=== PATIENT | male | born 1975 | race Caucasian/White ===

== ENCOUNTER 2024-03-23 11:41 | Emergency (ER) | payer OTHER, SELFPAY ==
[2024-03-23 11:56] VITALS: BP 124/77; PULSE 70; TEMP 36.6; O2SAT 96; BMI 27.1
--- NOTE | 2024-03-23 12:12 | XR_ITS ---
The [address] [address] Patient Name: KATELYNN VANEGAS MRN: [id number] date: 1975 Sex: M Assigned Patient Location: ER Current Patient Location: ER Accession/Order Number: [id number] Exam Date: 03/23/2024 12:29 Report Date: 03/23/2024 12:56 At the request of: EMELYN HOU Procedure: XR cervical spine 2-3V EXAMINATION: XR cervical spine 2-3V HISTORY: Atraumatic pain [; chronic right side neck and shoulder pain COMPARISON: No relevant comparison available. FINDINGS: BONES: Straightening of normal lordotic curvature. Minimal grade 1 anterior listhesis of C3 on 4. Mild degenerative facet arthropathy C5-6, C6-7. DISC SPACES: Slight narrowing C4-5, C5-6. PARASPINOUS: Negative. No paraspinous abnormality is seen. OTHER: Negative. XR/XR cervical spine 2-3V IMPRESSION: 1. Multilevel mild degenerative changes. 2. No appreciable acute abnormality. Electronically authenticated by: BRYCE GARCIA Date: 03/23/2024 12:56
--- NOTE | 2024-03-23 12:12 | XR_ITS ---
The [address] [address] Patient Name: KATELYNN VANEGAS MRN: [id number] date: 1975 Sex: M Assigned Patient Location: ER Current Patient Location: ER Accession/Order Number: [id number] Exam Date: 03/23/2024 12:29 Report Date: 03/23/2024 12:55 At the request of: EMELYN HOU Procedure: XR shoulder RT min 2V PROCEDURE: XR shoulder RT min 2V HISTORY: Atraumatic pain ; chronic right side neck and shoulder pain, right arm numbness COMPARISON: None. FINDINGS: BONES:No fracture, acute abnormality, or significant arthropathy. SOFT TISSUES:No visible soft tissue swelling. EFFUSION:None visible. OTHER: Negative. XR/XR shoulder RT min 2V IMPRESSION: 1. No acute abnormality or significant degenerative joint disease. Electronically authenticated by: BRYCE GARCIA Date: 03/23/2024 12:55
--- NOTE | 2024-03-23 12:12 | ED.GENADUL1 ---
HPI HPI - General Adult General Chief complaint: Neck Pain/Injury Stated complaint: NECK PAIN/SHOULDER PAIN Time Seen by Provider: 03/23/24 12:06 Source: patient Mode of arrival: walk-in Limitations: no limitations History of Present Illness HPI narrative: 48-year-old male presents for pain at his right shoulder and neck area. He gives no history of any injury. This time he has had it for the past day but this is a recurring issue for him. He has had it checked with x-rays but no specific cause was ever found. He has no weakness or numbness in his hand. He does not have a headache. Related Data Home Medications ?Medication ?Instructions ?Recorded ?Confirmed naproxen sodium 220 mg capsule 660 mg PO ONCE PRN pain 03/23/24 03/23/24 (Aleve) Previous Rx's ?Medication ?Instructions ?Recorded etodolac 400 mg tablet 400 mg PO Q8H PRN pain #20 tabs 03/23/24 methocarbamol 500 mg tablet 500 mg PO Q8H PRN pain #20 tabs 03/23/24 Allergies Allergy/AdvReac Type Severity Reaction Status Date / Time opiates AdvReac Unknown Uncoded 03/23/24 11:54 Opioid HPI Opioid Management Most Recent Opioid Data: Last OCT Pain Assessment 03/23/24 12:28 Review of Systems ROS Narrative A ten point review of systems is negative except as noted above. Exam Narrative Exam Narrative: Nurses note and vital signs reviewed and patient is not hypoxic. General: The patient appears in no apparent distress. He is reluctant to turn his head. He has an ice pack on his right shoulder and neck area. Skin: Warm, dry, no pallor noted. There is no rash noted including in the shoulder and neck region. Head: Normocephalic, atraumatic Eye: Normal conjunctiva, no drainage Ears, Nose, Mouth, and Throat: oral mucosa is moist. Nares patent. Cardiovascular: Regular Rate and Rhythm Respiratory: Patient is in no distress, no accessory muscle use, lungs are clear to auscultation, no wheezing, rales or rhonchi Back: non-tender GI: Soft and nontender Musculoskeletal: Radial pulse 2+ on the right side. Wrist elbow and shoulder have good range of motion. There is no mass or bruising or rash in the shoulder and neck region. No palpable tenderness on the C-spine. Neurological: Alert and oriented Psychiatric: Cooperative Constitutional Vital Signs, click to edit/add: Last Vital Signs Temp 98 F 03/23/24 11:56 Pulse 70 03/23/24 11:56 Resp 14 03/23/24 11:56 BP 124/77 03/23/24 11:56 Pulse Ox 96 03/23/24 11:56 O2 Del Method Room Air 03/23/24 11:56 Course Vital Signs Vital signs: Vital Signs Temperature 98 F 03/23/24 11:56 Pulse Rate 70 03/23/24 11:56 Respiratory Rate 14 03/23/24 11:56 Blood Pressure 124/77 03/23/24 11:56 Pulse Oximetry 96 03/23/24 11:56 Oxygen Delivery Method Room Air 03/23/24 11:56 Temperature 98 F 03/23/24 11:56 Pulse Rate 70 03/23/24 11:56 Respiratory Rate 14 03/23/24 11:56 Blood Pressure 124/77 03/23/24 11:56 Pulse Oximetry 96 03/23/24 11:56 Oxygen Delivery Method Room Air 03/23/24 11:56 Medical Decision Making MDM Narrative Medical decision making narrative: X-ray findings are discussed with the patient. He was given IM Toradol here and prescribed Lodine and Robaxin. He is referred to Dr. Martin for appropriate follow-up. Treatment diagnosis and follow-up were discussed with the patient. Differential Diagnosis Differential Diagnosis: Muscle strain, cervical radiculopathy, cervical arthritis Imaging Data C-spine, shoulder x-ray: Radiologist's impression: ITS Impressions Cervical Spine X-Ray 03/23/24 12:12 IMPRESSION: 1. Multilevel mild degenerative changes. 2. No appreciable acute abnormality. Electronically authenticated by: BRYCE GARCIA Date: 03/23/2024 12:56 Shoulder X-Ray 03/23/24 12:12 IMPRESSION: 1. No acute abnormality or significant degenerative joint disease. Electronically authenticated by: BRYCE GARCIA Date: 03/23/2024 12:55 Discharge Plan Discharge Stand Alone Forms: Portal Instructions Chief Complaint: Neck Pain/Injury Clinical Impression: Neck pain Patient Disposition: Home, Self-Care Time of Disposition Decision: 13:19 Condition: Good Mode of Transportation: Private Vehicle Prescriptions / Home Meds: New etodolac 400 mg tablet 400 mg PO Q8H PRN (Reason: pain) Qty: 20 0RF methocarbamol 500 mg tablet 500 mg PO Q8H PRN (Reason: pain) Qty: 20 0RF No Action naproxen sodium [Aleve] 220 mg capsule 660 mg PO ONCE PRN (Reason: pain) Print Language: Salvadorean Instructions: Chronic Neck Pain (DC) Referrals: DOMINICK PICKENS [Primary Care Provider] - 1 week Bryce Martin MD [Physician] - None
[2024-03-23] MEDS: KETOROLAC TROMETHAMINE 60 MG/2 ML VIAL IM (12:28)
[2024-03-23] MEDS: METHOCARBAMOL 500 MG TABLET 750 MG PO (12:28)
== END 2024-03-23 13:51 | disposition home or self-care (01) ==
PROVIDERS: Emergency Provider Emergency Medicine; PCP Family Medicine
DX: M54.2 Cervicalgia (principal)
CPT/HCPCS: 72040; 73030; 96372; 99284; J1885

== ENCOUNTER 2024-03-24 14:34 | Emergency (ER) | payer OTHER, SELFPAY ==
[2024-03-24 14:37] VITALS: BP 137/90; PULSE 74; TEMP 36.6; O2SAT 97; BMI 26.4
--- OUTSIDE RECORDS SUMMARY | 2024-03-24 14:39 | XMS_ITS | CCD ---
Author Organization [facility] Care Team Providers Care Public Health Administrator Name Role Phone Brady Rosas Unavailable [phone] Ladi Arcos Attending Unavailabl e Ralph, Dr. Brady Ryder Primary Care Un available Ralph, DO Abreu Primary Care Provider DO Brady Herbert Emergency Provider UnaDO Brady Elizabeth Attending Provider Ralph, DO Abreu Primary Care Provider [phone] MD Martin Jacobo Attending Provider [phone] Brady Rosas Primary Care Unavailable Brady Herbert Admitting Unavailable Brady Herbert Attending Unavailable Ralph, Brady Primary Care Unavailable Brady Rosas Attending Unavailable Brady Rosas Admitting Unavailable Brady Rosas Primary Care Unavailable Brady Rosas Attending Unavailable Brady Rosas Admitting Unavailable Brady Rosas Primary Care Unavailable Martin Jacobo Admitting Unavailable Martin Jacobo Attending Unavailable Medications Current Medications Medication Drug Class(es) Dates Sig (Normalized) Sig (Original) calcium ascorbate 500 mg oral tablet (1 source) Start: 12-08-2023 take 500 mg by mouth once daily Ascorbate Calcium (Vitamin C) Active 500 MG PO Daily December 08, 2023 12:00am cetirizine hydrochloride 10 mg oral tablet (4 sources) Histamine-1 Receptor Antagonist Start: 03-26-2023 take 1 tablet by mouth once daily Cetirizine (Zyrtec) 10 mg Tablet Active 10 MG PO Daily March 26, 2023 12:00am cholecalciferol 0.025 mg oral capsule (1 source) Vitamin D Start: 12-08-2023 take 25 ug by mouth once daily Cholecalciferol (Vitamin D3) Active 25 MCG PO Daily December 08, 2023 12:00am glucosamine sulfate 500 mg oral tablet (1 source) Start: 12-08-2023 take 1 tablet by mouth once daily Glucosamine Sulfate (Glucosamine) 500 mg tablet Active 500 MG PO Daily December 08, 2023 12:00am administer with a meal Multivitamin (Daily Multi-Vitamin) tablet (1 source) Start: 12-08-2023 take 1 tablet by mouth once daily Multivitamin (Daily Multi-Vitamin) tablet Active 1 TAB PO Daily December 08, 2023 12:00am naproxen sodium 220 mg oral capsule (1 source) Nonsteroidal Anti-inflammatory Drug Start: 12-08-2023 take 1 capsule by mouth once daily Naproxen Sodium (Aleve) 220 mg capsule Active 220 MG PO Daily December 08, 2023 12:00am vitamin b12 1 mg oral capsule (1 source) Vitamin B12 Start: 12-08-2023 take 1000 ug by mouth once daily Cyanocobalamin (Vitamin B-12) Active 1000 MCG PO Daily December 08, 2023 12:00am Completed/Discontinued Medications Medication Drug Class(es) Dates Sig (Normalized) Sig (Original) Sod Picosulf-Mag Ox-Citric Ac (1 source) Start: 10-19-2023 End: 12-08-2023 take 1 mL by mouth once Sod Picosulf-Mag Ox-Citric Ac (Clenpiq) 10 mg-3.5 gram- 12 gram/175 mL solution Discontinued 175 ML PO Once 175 1 October 19, 2023 1:00am December 08, 2023 7:50am please follow instructions proved by Dr. Jacobo's office Supplements (4 sources) Start: 03-26-2023 End: 12-08-2023 Supplements Discontinued March 26, 2023 12:00am December 08, 2023 7:50am Start: 03-26-2023 Supplements Ac tive March 26, 2023 12:00am Problems Active Problems Problem Classification Problem Date Documented Da te Episodic/Chronic Immunizations and screening for infectious disease (2 sources) Suspected disease caused by 2019-nCoV; Translations: [Contact with or exposure to other viral diseases] Episodic Other nutritional; endocrine; and metabolic disorders (4 sources) Hypophosphatemia; Translations: [Other disorders of phosphorus metabolism] 03-26-2023 Chronic Other screening for suspected conditions (not mental disorders or infectious disease) (1 source) Encounter for screening for malignant neoplasm of colon; Translations: [Encounter for screening for malignant neoplasm of colon] Onset: 12-08-2023 Episodic Unclassified (2 sources) Contact with and (suspected) exposure to COVID-19; Translations: [Contact with and (suspected) exposure to COVID-19] Onset: 03-18-2022 Unclassified (1 source) Encounter for general adult medical examination without abnormal findings; Translations: [Encounter for general adult medical examination without abnormal findings] Onset: 04-16-2023 Past or Other Problems Problem Classification Problem Date Documented Da te Episodic/Chronic Cardiac dysrhythmias (5 sources) Palpitations; Translations: [Palpitations] Onset: 03-26-2023 03-26-2023 Episodic Results Test Name Value Interpretation Reference Range Facility [facility] 12-08-2023 L Specimen: [id number] Received: 12/08/23 Status: KEAGAN Peoples Num: [id number] Spec Type: Surgical Subm Dr: Martin Jacobo MD Tissues: A Colon Biopsy (DESC POLYP) B Colon Biopsy (SIGMOID POLYP) Procedures: HE/4, Gross/Micro L4/2 Age/ Patient Sex Location Account Attending Physician Katelynn Burdick 48/M [id number] Martin Jacobo MD SPEC NUM: [id number] RECD: 12/08/23 STATUS: HALIMAAkin PEOPLES NUM: [id number] SRIRAM: 12/08/23- SUBM DR: Martin Jacobo MD ENTERED: 12/08/[address] [facility] DR: SPEC TYPE: Surgical DEPT: S ORDERED: HE/4, Gross/Micro L4/2 ORDERED: HE/4, Gross/Micro L4/2 Pathological Diagnosis A, descending colon polyp biopsy: -Tubular adenoma without high-grade dysplasia B, sigmoid polyp biopsy: -Tubular adenoma without high-grade dysplasia Gross Description A. Received in formalin, labeled with the patient's name and descending polyp is a 0.8 x 0.3 x 0.2 cm braun polypoid tissue fragment admixed with possible vegetable matter collectively measuring 1.1 x 0.8 x 0.1 cm, entirely submitted in A1. B. Received in formalin labeled with the patient's name and sigmoid polyp is a 0.7 x 0.7 x 0.2 cm polypoid tissue fragment, bisected and entirely submitted in B1. Clinical history screening TW Specimen: [id number] Received: 12/08/23 Status: KEAGAN Peoples Num: [id number] Spec Type: Surgical Subm Dr: Martin Jacobo MD Tissues: A Colon Biopsy (DESC POLYP) B Colon Biopsy (SIGMOID POLYP) Procedures: HE/Jadiel, Gross/Micro L4/2 Patient: Katelynn Burdick [id number] (Continued) Specimen: [id number] Received: 12/08/23 (Continued) Signed (signature on file) Theresa Oconnor MD 12/10/23 1313 Specimen: [id number] Received: 12/08/23 Status: KEAGAN Peoples Num: [id number] Spec Type: Surgical Subm Dr: Martin Jacobo MD Tissues: A Colon Biopsy (DESC POLYP) B Colon Biopsy (SIGMOID POLYP) Procedures: /, Gross/Micro L4/2 Patient: Katelynn Burdick [id number] (Continued) Specimen: Received: 12/08/23 (Continued) CPT Codes 20908F3 Specimen: [id number] Received: 12/08/23 Status: KEAGAN Peoples Num: [id number] Spec Type: Surgical Subm Dr: Martin Jacobo MD Tissues: A Colon Biopsy (DESC POLYP) B Colon Biopsy (SIGMOID POLYP) Procedures: HE/4, Gross/Micro L4/2 Patient: Katelynn Burdick [id number] (Continued) Signed (signature on file) Theresa Oconnor MD 12/10/23 1313 Normal [facility] Alanine aminotransferase [En zymatic activity/volume] in Serum or PlasmaOrdered By: Brady Rosas on 04-16-2023 ALT [Catalytic activity/Vol] 26 U/L 7-52 [facility] Albumin [Mass/volume] in Ser um or Plasma by Bromocresol green (BCG) dye binding methoOrdered By: Brady Rosas on 04-16-2023 Albumin BCG dye [Mass/Vol] 4.5 g/dL 3.5-5.7 [facility] Alkaline phosphatase [Enzyma tic activity/volume] in Serum or PlasmaOrdered By: Brady Rosas on 04-16-2023 ALP [Catalytic activity/Vol] 61 U/L 34-104 [facility] Aspartate aminotransferase [ Enzymatic activity/volume] in Serum or PlasmaOrdered By: Brady Rosas on 04-16-2023 AST [Catalytic activity/Vol] 18 U/L 13-39 [facility] Basophils Auto (Bld) [#/Vol] Ordered By: Brady Rosas on 04-16-2023 Basophils (Bld) [#/Vol] 0.1 10*3/uL 0.0-0.2 [facility] Basophils/100 WBC Auto (Bld) Ordered By: Brady Rosas on 04-16-2023 Basophils/100 WBC (Bld) 0.7 % . [facility] Bilirubin.total [Mass/volume ] in Serum or PlasmaOrdered By: Brady Rosas on 04-16-2023 Bilirubin [Mass/Vol] 0.9 mg/dL 0.3-1.0 [facility] Calcium [Mass/volume] in Ser um or PlasmaOrdered By: Brady Rosas on 04-16-2023 Calcium [Mass/Vol] 9.4 mg/dL 8.6-10.3 [facility] Carbon dioxide, total [Moles /volume] in Serum or PlasmaOrdered By: Brady Rosas on 04-16-2023 CO2 [Moles/Vol] 30.6 mmol/L 21.0-31.0 [facility] Chloride [Moles/volume] in S isiah or PlasmaOrdered By: Brady Rosas on 04-16-2023 Chloride [Moles/Vol] 107 mmol/L 98-107 [facility] Cholesterol [Mass/volume] in Serum or PlasmaOrdered By: Brady Rosas on 04-16-2023 Cholesterol [Mass/Vol] 187 mg/dL 140-200 [facility] Comment on above: Chol less than 200 m g/dl low riskChol 201-239 mg/dl borderline riskChol 240 mg/dl and greater high risk Cholesterol in LDL Calc [Mas s/Vol]Ordered By: Brady Rosas on 04-16-2023 Cholesterol in LDL [Mass/Vol] 127 mg/dL 0-100 [facility] Comment on above: LDL ATP III CLASSIFI CATIONLDL less than 100 mg/dL OptimalLDL 100-129 mg/dL Near or above optimalLDL 130-159 mg/dL Borderline highLDL 160-189 mg/dL HighLDL greater than 189 mg/dL Very high Cholesterol in VLDL Calc [Ma ss/Vol]Ordered By: Brady Mongechandler on 04-16-2023 Cholesterol in VLDL [Mass/Vol] 22 mg/dL [facility] Complete Blood Count Auto Di ffon 04-16-2023 Basophils (Bld) [#/Vol] 0.1 10*3/uL Normal 0.0-0.2 [facility] Comment on above: Result Comment: PERF ORMED BY: [place] [address] PATHOLOGIST [employer]EN [employer]OR STUART SIGALA M.D. Performed By: #### L IPID, PTH, CBC, CMP, PHOS, PSAS, TSH3, T4F, URMACRERAT, [id number], MG #### [facility] [address] [place] [address] [place] #### CAION #### [facility] , Basophils/100 WBC (Bld) 0.7 % Normal . [facility] Comment on above: Performed By: #### L IPID, PTH, CBC, CMP, PHOS, PSAS, TSH3, T4F, URMACRERAT, [id number], MG #### [facility] [address] [place] [address] [place] #### CAION #### [facility] , Eosinophils (Bld) [#/Vol] 0.1 10*3/uL Normal 0.0-0.45 [facility] Comment on above: Performed By: #### L IPID, PTH, CBC, CMP, PHOS, PSAS, TSH3, T4F, URMACRERAT, [id number], MG #### [place] [address] [place] #### CAION #### [facility] , Eosinophils/100 WBC (Bld) 1.4 % Normal . [facility] Comment on above: Performed By: #### L IPID, PTH, CBC, CMP, PHOS, PSAS, TSH3, T4F, URMACRERAT, [id number], MG #### [place] [address] [place] #### CAION #### [facility] , Erythrocyte distribution width (RBC) [Ratio] 13.6 % Normal 12.0-14.8 [facility] Comment on above: Performed By: #### L IPID, PTH, CBC, CMP, PHOS, PSAS, TSH3, T4F, URMACRERAT, [id number], MG #### [address] #### CAION #### [facility] , Hematocrit (Bld) [Volume fraction] 48.6 % Normal 38.8-50.0 [facility] Comment on above: Performed By: #### L IPID, PTH, CBC, CMP, PHOS, PSAS, TSH3, T4F, URMACRERAT, [id number], MG #### [address] #### CAION #### [facility] , Hemoglobin (Bld) [Mass/Vol] 16.7 g/dL Normal 13.0-17.0 [facility] Comment on above: Performed By: #### L IPID, PTH, CBC, CMP, PHOS, PSAS, TSH3, T4F, URMACRERAT, [id number], MG #### [place] [address] [place] #### CAION #### [facility] , Lymphocytes (Bld) [#/Vol] 2.2 10*3/uL Normal 1.00-4.8 [facility] Comment on above: Performed By: #### L IPID, PTH, CBC, CMP, PHOS, PSAS, TSH3, T4F, URMACRERAT, [id number], MG #### [place] [address] [place] #### CAION #### [facility] , Lymphocytes/100 WBC (Bld) 28.5 % Normal . [facility] Comment on above: Performed By: #### L IPID, PTH, CBC, CMP, PHOS, PSAS, TSH3, T4F, URMACRERAT, [id number], MG #### [place] [address] [place] #### CAION #### [facility] , MCH (RBC) [Entitic mass] 32.7 pg Normal 27.5-35.2 [facility] Comment on above: Performed By: #### L IPID, PTH, CBC, CMP, PHOS, PSAS, TSH3, T4F, URMACRERAT, [id number], MG #### [address] #### CAION #### [facility] , MCV (RBC) [Entitic vol] 95.1 fL Normal 83.5-101 [facility] Comment on above: Performed By: #### L IPID, PTH, CBC, CMP, PHOS, PSAS, TSH3, T4F, URMACRERAT, [id number], MG #### [place] [address] [place] #### CAION #### [facility] , Mean Corpuscular HGB Conc 34.4 g/dL Normal 32.5-35.6 [facility] Comment on above: Performed By: #### L IPID, PTH, CBC, CMP, PHOS, PSAS, TSH3, T4F, URMACRERAT, [id number], MG #### [place] [address] [place] #### CAION #### [facility] , Monocytes (Bld) [#/Vol] 0.4 10*3/uL Normal 0.0-0.8 [facility] Comment on above: Performed By: #### L IPID, PTH, CBC, CMP, PHOS, PSAS, TSH3, T4F, URMACRERAT, [id number], MG #### [address] #### CAION #### [facility] , Monocytes/100 WBC (Bld) 5.0 % Normal . [facility] Comment on above: Performed By: #### L IPID, PTH, CBC, CMP, PHOS, PSAS, TSH3, T4F, URMACRERAT, [id number], MG #### [address] #### CAION #### [facility] , Neutrophils (Bld) [#/Vol] 5.0 10*3/uL Normal 1.8-7.7 [facility] Comment on above: Performed By: #### L IPID, PTH, CBC, CMP, PHOS, PSAS, TSH3, T4F, URMACRERAT, [id number], MG #### [address] #### CAION #### [facility] , Neutrophils/100 WBC (Bld) 64.4 % Normal . [facility] Comment on above: Performed By: #### L IPID, PTH, CBC, CMP, PHOS, PSAS, TSH3, T4F, URMACRERAT, [id number], MG #### [place] [address] [place] #### CAION #### [facility] , NRBC% 0.1 /100{WBC} Normal 0-0.5 [facility] Comment on above: Performed By: #### L IPID, PTH, CBC, CMP, PHOS, PSAS, TSH3, T4F, URMACRERAT, [id number], MG #### [facility] [address] [place] [address] [place] #### CAION #### [facility] , Platelet mean volume (Bld) [Entitic vol] 9.7 fL Normal 6.6-10.1 [facility] Comment on above: Performed By: #### L IPID, PTH, CBC, CMP, PHOS, PSAS, TSH3, T4F, URMACRERAT, [id number], MG #### [facility] [address] [place] [address] #### CAION #### [facility] , Platelets (Bld) [#/Vol] 217 10*3/uL Normal 150-450 [facility] Comment on above: Performed By: #### L IPID, PTH, CBC, CMP, PHOS, PSAS, TSH3, T4F, URMACRERAT, [id number], MG #### [address] #### CAION #### [facility] , RBC (Bld) [#/Vol] 5.11 10*6/uL Normal 3.90-5.60 [facility] Comment on above: Performed By: #### L IPID, PTH, CBC, CMP, PHOS, PSAS, TSH3, T4F, URMACRERAT, [id number], MG #### [place] [address] [place] #### CAION #### [facility] , WBC (Bld) [#/Vol] 7.8 10*3/uL Normal 4.1-10.5 [facility] Comment on above: Performed By: #### L IPID, PTH, CBC, CMP, PHOS, PSAS, TSH3, T4F, URMACRERAT, [id number], MG #### [address] #### CAION #### [facility] , Comprehensive Metabolic Pane christine 04-16-2023 Albumin [Mass/Vol] 4.5 g/dL Normal 3.5-5.7 [facility] Comment on above: Performed By: #### B MP, CBC, PHOS, BNP, HS TROP, MG #### [address] Albumin/Globulin [Mass ratio] 1.9 {ratio} Normal [facility] Comment on above: Performed By: #### B MP, CBC, PHOS, BNP, HS TROP, MG #### [address] ALP [Catalytic activity/Vol] 61 U/L Normal 34-104 [facility] Comment on above: Performed By: #### B MP, CBC, PHOS, BNP, HS TROP, MG #### [address] ALT [Catalytic activity/Vol] 26 U/L Normal 7-52 [facility] Comment on above: Performed By: #### B MP, CBC, PHOS, BNP, HS TROP, MG #### [address] Anion gap [Moles/Vol] 7.9 mmol/L Normal 6.0-15.0 [facility] Comment on above: Performed By: #### B MP, CBC, PHOS, BNP, HS TROP, MG #### [address] AST [Catalytic activity/Vol] 18 U/L Normal 13-39 [facility] Comment on above: Performed By: #### B MP, CBC, PHOS, BNP, HS TROP, MG #### [address] Bilirubin [Mass/Vol] 0.9 mg/dL Normal 0.3-1.0 [facility] Comment on above: Performed By: #### B MP, CBC, PHOS, BNP, HS TROP, MG #### [address] Calcium [Mass/Vol] 9.4 mg/dL Normal 8.6-10.3 [facility] Comment on above: Performed By: #### B MP, CBC, PHOS, BNP, HS TROP, MG #### [address] Chloride [Moles/Vol] 107 mmol/L Normal 98-107 [facility] Comment on above: Performed By: #### B MP, CBC, PHOS, BNP, HS TROP, MG #### [address] CO2 [Moles/Vol] 30.6 mmol/L Normal 21.0-31.0 [facility] Comment on above: Performed By: #### B MP, CBC, PHOS, BNP, HS TROP, MG #### [address] Creatinine [Mass/Vol] 0.87 mg/dL Normal 0.70-1.30 [facility] Comment on above: Performed By: #### B MP, CBC, PHOS, BNP, HS TROP, MG #### [address] GFR/1.73 sq M.predicted MDRD (S/P/Bld) [Vol rate/Area] mL/min/{1.73_m2} Normal [facility] Comment on above: Performed By: #### B MP, CBC, PHOS, BNP, HS TROP, MG #### [address] Globulin (S) [Mass/Vol] 2.4 g/dL Normal [facility] Comment on above: Performed By: #### B MP, CBC, PHOS, BNP, HS TROP, MG #### [address] Glucose [Mass/Vol] 92 mg/dL Normal 70-100 [facility] Comment on above: Result Comment: [place] Glucose Reference Range is dependent on time and content of last meal. Glucose of more than 200 mg/dL in a nonstressed, ambulatory subject supports the diagnosis of Diabetes Mellitus. ADA recommended reference range Performed By: #### B MP, CBC, PHOS, BNP, HS TROP, MG #### [address] Potassium [Moles/Vol] 4.5 mmol/L Normal 3.5-5.1 [facility] Comment on above: Performed By: #### B MP, CBC, PHOS, BNP, HS TROP, MG #### [address] Protein [Mass/Vol] 6.9 g/dL Normal 6.4-8.9 [facility] Comment on above: Performed By: #### B MP, CBC, PHOS, BNP, HS TROP, MG #### [address] Sodium [Moles/Vol] 141 mmol/L Normal 136-145 [facility] Comment on above: Performed By: #### B MP, CBC, PHOS, BNP, HS TROP, MG #### [address] Urea nitrogen [Mass/Vol] 13 mg/dL Normal 7-25 [facility] Comment on above: Performed By: #### B MP, CBC, PHOS, BNP, HS TROP, MG #### [address] Creatinine [Mass/volume] in Serum or PlasmaOrdered By: Brady Rosas on 04-16-2023 Creatinine [Mass/Vol] 0.87 mg/dL 0.70-1.30 [facility] Creatinine [Mass/volume] in UrineOrdered By: Brady Rosas on 04-16-2023 Creatinine (U) [Mass/Vol] 135.0 mg/dL 14.0-26.0 [facility] Eosinophils Auto (Bld) [#/Vo l]Ordered By: Brady Rosas on 04-16-2023 Eosinophils (Bld) [#/Vol] 0.1 10*3/uL 0.0-0.45 [facility] Eosinophils/100 WBC Auto (Bl d)Ordered By: Brady Rosas on 04-16-2023 Eosinophils/100 WBC (Bld) 1.4 % . [facility] Erythrocyte distribution wid th Auto (RBC) [Ratio]Ordered By: Brady Rosas on 04-16-2023 Erythrocyte distribution width (RBC) [Ratio] 13.6 % 12.0-14.8 [facility] Free T4 (Free Thyroxine)on 0 04-16-2023 Free T4 [Mass/Vol] 0.68 ng/dL Normal 0.61-1.12 [facility] Comment on above: Performed By: #### B MP, CBC, PHOS, BNP, HS TROP, MG #### [place] [id number] [facility] Globulin Calc (S) [Mass/Vol] Ordered By: Brady Rosas on 04-16-2023 Globulin (S) [Mass/Vol] 2.4 g/dL [facility] Glucose [Mass/volume] in Ser um or PlasmaOrdered By: Brady Rosas on 04-16-2023 Glucose [Mass/Vol] 92 mg/dL 70-100 [facility] Comment on above: ADA recommended refe rence rangeRandom Glucose Reference Range is dependent on time and content of last meal. Glucose of more than 200 mg/dL in a nonstressed, ambulatory subject supports the diagnosis of Diabetes Mellitus. Hematocrit Auto (Bld) [Volum e fraction]Ordered By: Brady Rosas on 04-16-2023 Hematocrit (Bld) [Volume fraction] 48.6 % 38.8-50.0 [facility] Hemoglobin [Mass/volume] in BloodOrdered By: Brady Rosas on 04-16-2023 Hemoglobin (Bld) [Mass/Vol] 16.7 g/dL 13.0-17.0 [facility] Ionized Calciumon 04-16-2023 Ionized Calcium Normal . [facility] Comment on above: Result Comment: Test not performed. Deterioration occurred during specimen handling. contacted your facility on 04-20-2023 PERFORMED BY: [facility] [address] [place] [id number] PATHOLOGIST WO[employer]EN [employer]ENCE E[employer]OR STUART SIGALA M.D. Performed By: #### B MP, CBC, PHOS, BNP, HS TROP, MG #### [facility] [address] Leukocytes [#/volume] correc lolis for nucleated erythrocytes in Blood by Automated counOrdered By: Brady Rosas on 04-16-2023 WBC corrected for nucl RBC Auto (Bld) [#/Vol] 7.8 10*3/uL 4.1-10.5 [facility] Lipid Panelon 04-16-2023 Cholesterol [Mass/Vol] 187 mg/dL Normal 140-200 [facility] Comment on above: Result Comment: Chol less than 200 mg/dl low risk Chol 201-239 mg/dl borderline risk Chol 240 mg/dl and greater high risk Performed By: #### B MP, CBC, PHOS, BNP, HS TROP, MG #### [facility] [address] Cholesterol in HDL [Mass/Vol] 37 mg/dL Normal 23-92 [facility] Comment on above: Result Comment: HDL CHOL ATP-III CLASSIFICATION Cardiovascular Risk HDL > or equal to 60 mg/dL LOW HDL < 40 mg/dL HIGH Performed By: #### B MP, CBC, PHOS, BNP, HS TROP, MG #### [facility] [address] Cholesterol.total/Chol esterol in HDL [Mass ratio] 5.1 {ratio} Normal <5.0 [facility] Comment on above: Performed By: #### B MP, CBC, PHOS, BNP, HS TROP, MG #### [facility] [address] LDL Cholesterol,Calculated 127 mg/dL High 0-100 [facility] Comment on above: Result Comment: LDL ATP III CLASSIFICATION LDL less than 100 mg/dL Optimal LDL 100-129 mg/dL Near or above optimal LDL 130-159 mg/dL Borderline high LDL 160-189 mg/dL High LDL greater than 189 mg/dL Very high Performed By: #### B MP, CBC, PHOS, BNP, HS TROP, MG #### [facility] [address] Triglyceride w/Reflex 114 mg/dL Normal 0-149 [facility] Comment on above: Result Comment: TRIG ATP III CLASSIFICATION TRIG less than 150 mg/dL Normal TRIG 150-199 mg/dL Borderline high TRIG 200-500 mg/dL High TRIG greater than 500 mg/dL Very high Standard traceable to the Center for Disease Conrtrol and Prevention (CDC) test method. Performed By: #### B MP, CBC, PHOS, BNP, HS TROP, MG #### [facility] [address] VLDL CHOLESTEROL 22 mg/dL Normal [facility] Comment on above: Performed By: #### B MP, CBC, PHOS, BNP, HS TROP, MG #### [facility] [address] Lymphocytes Auto (Bld) [#/Vo l]Ordered By: Brady Rosas on 04-16-2023 Lymphocytes (Bld) [#/Vol] 2.2 10*3/uL 1.00-4.8 [facility] Lymphocytes/100 WBC Auto (Bl d)Ordered By: Brady Rosas on 04-16-2023 Lymphocytes/100 WBC (Bld) 28.5 % . [facility] MCH Auto (RBC) [Entitic mass ]Ordered By: Brady Rosas on 04-16-2023 MCH (RBC) [Entitic mass] 32.7 pg 27.5-35.2 [facility] Auto (RBC) [Mass/Vol]Or dered By: Brady Rosas on 04-16-2023 MCHC (RBC) [Mass/Vol] 34.4 g/dL 32.5-35.6 [facility] MCV Auto (RBC) [Entitic vol] Ordered By: Brady Rosas on 04-16-2023 MCV (RBC) [Entitic vol] 95.1 fL 83.5-101 [facility] Magnesiumon 04-16-2023 Magnesium [Mass/Vol] 2.1 mg/dL Normal 1.9-2.7 [facility] Comment on above: Performed By: #### B MP, CBC, PHOS, BNP, HS TROP, MG #### [address] Magnesium [Mass/volume] in S isiah or PlasmaOrdered By: Brady Rosas on 04-16-2023 Magnesium [Mass/Vol] 2.1 mg/dL 1.9-2.7 [facility] MicroAlb Creat Ratio,Uon Albumin DL <= 20 mg/L (U) [Mass/Vol] mg/dL Normal 0.0-1.8 [facility] Comment on above: Performed By: #### B MP, CBC, PHOS, BNP, HS TROP, MG #### [address] Creatinine, Urine (Random) 135.0 mg/dL High 14.0-26.0 [facility] Comment on above: Performed By: #### B MP, CBC, PHOS, BNP, HS TROP, MG #### [address] Microalbumin/Creatinin e Ratio Not performed Normal 0.0-30.0 [facility] Comment on above: Result Comment: PERF ORMED BY: [place] [address] PATHOLOGIST [employer] STUART SIGALA M.D. Performed By: #### B MP, CBC, PHOS, BNP, HS TROP, MG #### [address] Microalbumin [Mass/volume] i n UrineOrdered By: Brady Rosas on 04-16-2023 Albumin DL <= 20 mg/L (U) [Mass/Vol] mg/dL 0.0-1.8 [facility] Monocytes Auto (Bld) [#/Vol] Ordered By: Brady Rosas on 04-16-2023 Monocytes (Bld) [#/Vol] 0.4 10*3/uL 0.0-0.8 [facility] Monocytes/100 WBC Auto (Bld) Ordered By: Brady Rosas on 04-16-2023 Monocytes/100 WBC (Bld) 5.0 % . [facility] Neutrophils Auto (Bld) [#/Vo l]Ordered By: Brady Ralph on 04-16-2023 Neutrophils (Bld) [#/Vol] 5.0 10*3/uL 1.8-7.7 [facility] Neutrophils/100 WBC Auto (Bl d)Ordered By: Brady Rosas on 04-16-2023 Neutrophils/100 WBC (Bld) 64.4 % . [facility] No Panel InformationOrdered By: Brady Rosas on 04-16-2023 Estimated GFR (CKD-EPI) > 60.0 mL/Min [facility] Creatinine Clearance (Chem N/A [facility] Nucleated erythrocytes [Pres ence] in Blood by Automated countOrdered By: Brady Rosas on 04-16-2023 Nucleated RBC Auto Ql (Bld) 0.1 /100{WBC} 0-0.5 [facility] PSA Screen (Yearly Only)on 0 04-16-2023 PSA Screen (Yearly Only) 0.390 ng/mL Normal 0.000-4.000 [facility] Comment on above: Result Comment: PERF ORMED BY: [place] [address] PATHOLOGIST [employer] STUART SIGALA M.D. Performed By: #### B MP, CBC, PHOS, BNP, HS TROP, MG #### [facility] [address] [place] [address] Parathyrin.intact [Mass/volu me] in Serum or PlasmaOrdered By: Brady Rosas on 04-16-2023 Parathyrin.intact [Mass/Vol] 32.5 pg/mL [facility] Parathyroid Hormone Intacton 04-16-2023 Parathyroid Hormone Intact 32.5 pg/mL Normal [facility] Comment on above: Result Comment: PERF ORMED BY: [place] [address] PATHOLOGIST [employer] STUART SIGALA M.D. Performed By: #### B MP, CBC, PHOS, BNP, HS TROP, MG #### [facility] [address] [id number] [facility] Phosphate [Mass/volume] in S isiah or PlasmaOrdered By: Brady Rosas on 04-16-2023 Phosphate [Mass/Vol] 3.2 mg/dL 3.7-7.2 [facility] Phosphoruson 04-16-2023 Phosphate [Mass/Vol] 3.2 mg/dL Low 3.7-7.2 [facility] Comment on above: Performed By: #### B MP, CBC, PHOS, BNP, HS TROP, MG #### [facility] [address] [id number] [facility] Platelet mean volume Auto (B ld) [Entitic vol]Ordered By: Brady Rosas on 04-16-2023 Platelet mean volume (Bld) [Entitic vol] 9.7 fL 6.6-10.1 [facility] Platelets Auto (Bld) [#/Vol] Ordered By: Brady Rosas on 04-16-2023 Platelets (Bld) [#/Vol] 217 10*3/uL 150-450 [facility] Potassium [Moles/volume] in Serum or PlasmaOrdered By: Brady Rosas on 04-16-2023 Potassium [Moles/Vol] 4.5 mmol/L 3.5-5.1 [facility] Prostate specific Ag [Mass/v olume] in Serum or PlasmaOrdered By: Brady Rosas on 04-16-2023 Prostate specific Ag [Mass/Vol] 0.390 ng/mL 0.000-4.000 [facility] Protein [Mass/volume] in Ser um or PlasmaOrdered By: Brady Rosas on 04-16-2023 Protein [Mass/Vol] 6.9 g/dL 6.4-8.9 [facility] RBC Auto (Bld) [#/Vol]Ordere d By: Brady Rosas on 04-16-2023 RBC (Bld) [#/Vol] 5.11 10*6/uL 3.90-5.60 [facility] Serum ionized calcium measur ement using ion specific electrode (mass/volume)Ordered By: Brady Rosas on 04-16-2023 Calcium.ionized ISE [Mass/Vol] See comment . [facility] Comment on above: Test not performed. Deterioration occurred during specimenhandling.contacted your facility on 04-20-2023 Serum or plasma albumin/glob ulin mass ratioOrdered By: Brady Rosas on 04-16-2023 Albumin/Globulin [Mass ratio] 1.9 {ratio} [facility] Serum or plasma anion gap de terminationOrdered By: Brady Rosas on 04-16-2023 Anion gap [Moles/Vol] 7.9 mmol/L 6.0-15.0 [facility] Serum or plasma high density lipoprotein (HDL) cholesterol measurementOrdered By: Brady Rosas on 04-16-2023 Cholesterol in HDL [Mass/Vol] 37 mg/dL 23-92 [facility] Comment on above: HDL CHOL ATP-III CLA SSIFICATION Cardiovascular RiskHDL > or equal to 60 mg/dL LOWHDL < 40 mg/dL HIGH Serum or plasma total choles terol/high density lipoprotein (HDL) cholesterol mass ratOrdered By: Brady Rosas on 04-16-2023 Cholesterol.total/Chol esterol in HDL [Mass ratio] 5.1 {ratio} <5.0 [facility] Sodium [Moles/volume] in Ser um or PlasmaOrdered By: Brady Roass on 04-16-2023 Sodium [Moles/Vol] 141 mmol/L 136-145 [facility] Thyroid Stimulating Hormoneo n 04-16-2023 TSH Qn 0.84 m[IU]/L Normal 0.45-5.33 [facility] Comment on above: Performed By: #### B MP, CBC, PHOS, BNP, HS TROP, MG #### [facility] [address] [place] [address] Thyrotropin [Units/volume] i n Serum or PlasmaOrdered By: Brady Rosas on 04-16-2023 TSH Qn 0.84 m[IU]/L 0.45-5.33 [facility] Thyroxine (T4) free [Mass/vo lume] in Serum or PlasmaOrdered By: Brady Rosas on 04-16-2023 Free T4 [Mass/Vol] 0.68 ng/dL 0.61-1.12 [facility] Triglyceride [Mass/volume] i n Serum or PlasmaOrdered By: Brady Rosas on 04-16-2023 Triglyceride [Mass/Vol] 114 mg/dL 0-149 [facility] Comment on above: TRIG ATP III CLASSIF ICATIONTRIG less than 150 mg/dL NormalTRIG 150-199 mg/dL Borderline highTRIG 200-500 mg/dL High TRIG greater than 500 mg/dL Very highStandard traceable to the Center for Disease Conrtrol and Prevention (CDC) test method. Urea nitrogen [Mass/volume] in Serum or PlasmaOrdered By: Brady Rosas on 04-16-2023 Urea nitrogen [Mass/Vol] 13 mg/dL 7-25 [facility] Urine microalbumin/creatinin e mass ratioOrdered By: Brady Rosas on 04-16-2023 Albumin/Creatinine DL <= 20 mg/L (U) [Mass ratio] TNP [facility] Comment on above: Test not performed Vitamin D 25 Hydroxy Totalon 04-16-2023 Vitamin D 25 Hydroxy Total 34.7 ng/mL Normal 30-100 [facility] Comment on above: Result Comment: ARTUR MIN D STATUS 25(OH)VITAMIN D RANGE (ng/mL) Deficient <20 Insufficient 20 to <30 Sufficient 30 to 100 Reference: Sherrill MF,Cyndi NC, Elvia LOPEZ, et al. Evaluation,treatment, and prevention of vitamin D deficiency; an Endocrine Society clinical practice guideline. JCEM. 2010; 96(7):1911-30. PERFORMED BY: [place] [address] PATHOLOGIST [employer] STUART SIGALA M.D. Performed By: #### B MP, CBC, PHOS, BNP, HS TROP, MG #### [address] Vitamin D+Metabolites [Mass/ volume] in Serum or PlasmaOrdered By: Brady Rosas on 04-16-2023 Vitamin D+Metabolites [Mass/Vol] 34.7 ng/mL 30-100 [facility] Comment on above: VITAMIN D STATUS 25( OH)VITAMIN D RANGE (ng/mL) Deficient <20 Insufficient 20 to <30Sufficient 30 to 100Reference: Sherrill MF,Cyndi WALLACE, Elvia LOPEZ, et al. Evaluation,treatment, and prevention of vitamin D deficiency; an Endocrine Society clinical practice guideline. JCEM. 2010; 96(7):1911-30. WBC Auto (Bld) [#/Vol]Ordere d By: Brady Rosas on 04-16-2023 WBC (Bld) [#/Vol] 7.8 10*3/uL 4.1-10.5 [facility] B-Type Natriuretic Peptideon 03-26-2023 Natriuretic peptide B (Bld) [Mass/Vol] 9.0 pg/mL Normal 5-100 [facility] Comment on above: Result Comment: PERF ORMED BY: [place] [address] PATHOLOGIST [employer] STUART SIGALA M.D. Performed By: #### B MP, CBC, PHOS, BNP, HS TROP, MG #### [address] Basic Metabolic Panelon 03-15 Anion gap [Moles/Vol] 8.6 mmol/L Normal 6.0-15.0 [facility] Comment on above: Performed By: #### B MP, CBC, PHOS, BNP, HS TROP, MG #### [facility] [address] [place] [address] [place] Calcium [Mass/Vol] 9.2 mg/dL Normal 8.6-10.3 [facility] Comment on above: Performed By: #### B MP, CBC, PHOS, BNP, HS TROP, MG #### [place] [address] [place] Chloride [Moles/Vol] 106 mmol/L Normal 98-107 [facility] Comment on above: Performed By: #### B MP, CBC, PHOS, BNP, HS TROP, MG #### [place] [address] [place] CO2 [Moles/Vol] 28.4 mmol/L Normal 21.0-31.0 [facility] Comment on above: Performed By: #### B MP, CBC, PHOS, BNP, HS TROP, MG #### [address] Creatinine [Mass/Vol] 0.98 mg/dL Normal 0.70-1.30 [facility] Comment on above: Performed By: #### B MP, CBC, PHOS, BNP, HS TROP, MG #### [place] [address] [place] Creatinine Clr Calc Pharmacy 107.58 Normal [facility] Comment on above: Performed By: #### B MP, CBC, PHOS, BNP, HS TROP, MG #### [place] [address] [place] GFR/1.73 sq M.predicted MDRD (S/P/Bld) [Vol rate/Area] mL/min/{1.73_m2} Normal [facility] Comment on above: Performed By: #### B MP, CBC, PHOS, BNP, HS TROP, MG #### [address] Glucose [Mass/Vol] 100 mg/dL Normal 70-100 [facility] Comment on above: Result Comment: [place] Glucose Reference Range is dependent on time and content of last meal. Glucose of more than 200 mg/dL in a nonstressed, ambulatory subject supports the diagnosis of Diabetes Mellitus. ADA recommended reference range Performed By: #### B MP, CBC, PHOS, BNP, HS TROP, MG #### [address] Potassium [Moles/Vol] 4.0 mmol/L Normal 3.5-5.1 [facility] Comment on above: Performed By: #### B MP, CBC, PHOS, BNP, HS TROP, MG #### [address] Sodium [Moles/Vol] 139 mmol/L Normal 136-145 [facility] Comment on above: Performed By: #### B MP, CBC, PHOS, BNP, HS TROP, MG #### [facility] [address] Urea nitrogen [Mass/Vol] 17 mg/dL Normal 7-25 [facility] Comment on above: Performed By: #### B MP, CBC, PHOS, BNP, HS TROP, MG #### [facility] [address] Basophils Auto (Bld) [#/Vol] Ordered By: Brady Herbert on 03-26-2023 Basophils (Bld) [#/Vol] 0.1 10*3/uL 0.0-0.2 [facility] Basophils/100 WBC Auto (Bld) Ordered By: Brady Herbert on 03-26-2023 Basophils/100 WBC (Bld) 0.9 % . [facility] Calcium [Mass/volume] in Ser um or PlasmaOrdered By: Brady Herbert on 03-26-2023 Calcium [Mass/Vol] 9.2 mg/dL 8.6-10.3 [facility] Carbon dioxide, total [Moles /volume] in Serum or PlasmaOrdered By: Brady Herbert on 03-26-2023 CO2 [Moles/Vol] 28.4 mmol/L 21.0-31.0 [facility] Chloride [Moles/volume] in S isiah or PlasmaOrdered By: Brady Herbert on 03-26-2023 Chloride [Moles/Vol] 106 mmol/L 98-107 [facility] Complete Blood Count Auto Di ffon 03-26-2023 Basophils (Bld) [#/Vol] 0.1 10*3/uL Normal 0.0-0.2 [facility] Comment on above: Result Comment: PERF ORMED BY: [facility] [address] [place] [address] PATHOLOGIST [employer] E[employer] STUART SIGALA M.D. Performed By: #### B MP, CBC, PHOS, BNP, HS TROP, MG #### [facility] [address] Basophils/100 WBC (Bld) 0.9 % Normal . [facility] Comment on above: Performed By: #### B MP, CBC, PHOS, BNP, HS TROP, MG #### [address] Eosinophils (Bld) [#/Vol] 0.1 10*3/uL Normal 0.0-0.45 [facility] Comment on above: Performed By: #### B MP, CBC, PHOS, BNP, HS TROP, MG #### [address] Eosinophils/100 WBC (Bld) 1.2 % Normal . [facility] Comment on above: Performed By: #### B MP, CBC, PHOS, BNP, HS TROP, MG #### [address] Erythrocyte distribution width (RBC) [Ratio] 13.3 % Normal 12.0-14.8 [facility] Comment on above: Performed By: #### B MP, CBC, PHOS, BNP, HS TROP, MG #### [address] Hematocrit (Bld) [Volume fraction] 46.3 % Normal 38.8-50.0 [facility] Comment on above: Performed By: #### B MP, CBC, PHOS, BNP, HS TROP, MG #### [address] Hemoglobin (Bld) [Mass/Vol] 16.0 g/dL Normal 13.0-17.0 [facility] Comment on above: Performed By: #### B MP, CBC, PHOS, BNP, HS TROP, MG #### [place] [address] [place] Lymphocytes (Bld) [#/Vol] 2.6 10*3/uL Normal 1.00-4.8 [facility] Comment on above: Performed By: #### B MP, CBC, PHOS, BNP, HS TROP, MG #### [place] [address] [place] Lymphocytes/100 WBC (Bld) 26.4 % Normal . [facility] Comment on above: Performed By: #### B MP, CBC, PHOS, BNP, HS TROP, MG #### [address] MCH (RBC) [Entitic mass] 32.4 pg Normal 27.5-35.2 [facility] Comment on above: Performed By: #### B MP, CBC, PHOS, BNP, HS TROP, MG #### [address] MCV (RBC) [Entitic vol] 93.8 fL Normal 83.5-101 [facility] Comment on above: Performed By: #### B MP, CBC, PHOS, BNP, HS TROP, MG #### [address] Mean Corpuscular HGB Conc 34.5 g/dL Normal 32.5-35.6 [facility] Comment on above: Performed By: #### B MP, CBC, PHOS, BNP, HS TROP, MG #### [address] Monocytes (Bld) [#/Vol] 0.6 10*3/uL Normal 0.0-0.8 [facility] Comment on above: Performed By: #### B MP, CBC, PHOS, BNP, HS TROP, MG #### [address] Monocytes/100 WBC (Bld) 17.41 % Normal 0.00-20.00 [facility] Comment on above: Performed By: #### B MP, CBC, PHOS, BNP, HS TROP, MG #### [address] Monocytes/100 WBC (Bld) 6.1 % Normal . [facility] Comment on above: Performed By: #### B MP, CBC, PHOS, BNP, HS TROP, MG #### [address] Neutrophils (Bld) [#/Vol] 6.5 10*3/uL Normal 1.8-7.7 [facility] Comment on above: Performed By: #### B MP, CBC, PHOS, BNP, HS TROP, MG #### [address] Neutrophils/100 WBC (Bld) 65.4 % Normal . [facility] Comment on above: Performed By: #### B MP, CBC, PHOS, BNP, HS TROP, MG #### [address] NRBC% 0.0 /100{WBC} Normal 0-0.5 [facility] Comment on above: Performed By: #### B MP, CBC, PHOS, BNP, HS TROP, MG #### [address] Platelet mean volume (Bld) [Entitic vol] 9.0 fL Normal 6.6-10.1 [facility] Comment on above: Performed By: #### B MP, CBC, PHOS, BNP, HS TROP, MG #### [address] Platelets (Bld) [#/Vol] 220 10*3/uL Normal 150-450 [facility] Comment on above: Performed By: #### B MP, CBC, PHOS, BNP, HS TROP, MG #### [address] RBC (Bld) [#/Vol] 4.94 10*6/uL Normal 3.90-5.60 [facility] Comment on above: Performed By: #### B MP, CBC, PHOS, BNP, HS TROP, MG #### [address] WBC (Bld) [#/Vol] 9.9 10*3/uL Normal 4.1-10.5 [facility] Comment on above: Performed By: #### B MP, CBC, PHOS, BNP, HS TROP, MG #### [address] Creatinine [Mass/volume] in Serum or PlasmaOrdered By: Bardy Herbert on 03-26-2023 Creatinine [Mass/Vol] 0.98 mg/dL 0.70-1.30 [facility] ECG 12 lead ECGon 03-26-2023 ECG 12 lead ECG [facility] Main [address] [address] Electrocardiograph Report Signed Patient: Katelynn Burdick MR#: [id number] 1 : 1975 Acct:[id number] Age/Sex: 47 / M ADM Date: 03/26/23 Loc: ER Room: Type: PRE ER Attending Dr: Ordering Provider: Brady Herbert DO Date of Service: 03/26/2308/06/1728 ECG/ECG 12 lead ECG: chest pain Copies to: Test Reason : Blood Pressure : 126/081 mmHG Vent. Rate : 094 BPM Atrial Rate : 094 BPM P-R Int : 134 ms QRS Dur : 086 ms QT Int : 352 ms P-R-T Axes : 055 027 072 degrees QTc Int : 440 ms Normal sinus rhythm Confirmed by Brady Herbert DO ([id number]) on 03/26/2023 6:27:27 PM Referred By: Electronically Signed By:Brady Herbert DO Transcribed By: MUS Signed By Brady Herbert DO 182 Normal [facility] Eosinophils Auto (Bld) [#/Vo l]Ordered By: Brady Herbert on 03-26-2023 Eosinophils (Bld) [#/Vol] 0.1 10*3/uL 0.0-0.45 [facility] Eosinophils/100 WBC Auto (Bl d)Ordered By: Brady Herbert on 03-26-2023 Eosinophils/100 WBC (Bld) 1.2 % . [facility] Erythrocyte distribution wid th Auto (RBC) [Ratio]Ordered By: Brady Herbert on 03-26-2023 Erythrocyte distribution width (RBC) [Ratio] 13.3 % 12.0-14.8 [facility] Glucose [Mass/volume] in Ser um or PlasmaOrdered By: Brady Herbert on 03-26-2023 Glucose [Mass/Vol] 100 mg/dL 70-100 [facility] Comment on above: ADA recommended refe rence rangeRandom Glucose Reference Range is dependent on time and content of last meal. Glucose of more than 200 mg/dL in a nonstressed, ambulatory subject supports the diagnosis of Diabetes Mellitus. Hematocrit Auto (Bld) [Volum e fraction]Ordered By: Brady Herbert on 03-26-2023 Hematocrit (Bld) [Volume fraction] 46.3 % 38.8-50.0 [facility] Hemoglobin [Mass/volume] in BloodOrdered By: Brady Herbert on 03-26-2023 Hemoglobin (Bld) [Mass/Vol] 16.0 g/dL 13.0-17.0 [facility] Leukocytes [#/volume] correc lolis for nucleated erythrocytes in Blood by Automated counOrdered By: Brady Herbert on 03-26-2023 WBC corrected for nucl RBC Auto (Bld) [#/Vol] 9.9 10*3/uL 4.1-10.5 [facility] Lymphocytes Auto (Bld) [#/Vo l]Ordered By: Brady Herbert on 03-26-2023 Lymphocytes (Bld) [#/Vol] 2.6 10*3/uL 1.00-4.8 [facility] Lymphocytes/100 WBC Auto (Bl d)Ordered By: Brady Herbert on 03-26-2023 Lymphocytes/100 WBC (Bld) 26.4 % . [facility] MCH Auto (RBC) [Entitic mass ]Ordered By: Brady Herbert on 03-26-2023 MCH (RBC) [Entitic mass] 32.4 pg 27.5-35.2 [facility] MCHC Auto (RBC) [Mass/Vol]Or dered By: Brady Herbert on 03-26-2023 MCHC (RBC) [Mass/Vol] 34.5 g/dL 32.5-35.6 [facility] MCV Auto (RBC) [Entitic vol] Ordered By: Brady Herbert on 03-26-2023 MCV (RBC) [Entitic vol] 93.8 fL 83.5-101 [facility] Magnesiumon 03-26-2023 Magnesium [Mass/Vol] 2.1 mg/dL Normal 1.9-2.7 [facility] Comment on above: Result Comment: PERF ORMED BY: [facility] [address] [place] [address] PATHOLOGIST [employer] STUART SIGALA M.D. Performed By: #### B MP, CBC, PHOS, BNP, HS TROP, MG #### [facility] [address] Magnesium [Mass/volume] in S isiah or PlasmaOrdered By: Brady Herbert on 03-26-2023 Magnesium [Mass/Vol] 2.1 mg/dL 1.9-2.7 [facility] Monocyte distribution width [Entitic volume] in Blood by AutomatedOrdered By: Brady Herbert on 03-26-2023 Monocyte distribution width Auto (Bld) [Entitic vol] 17.41 % 0.00-20.00 [facility] Monocytes Auto (Bld) [#/Vol] Ordered By: Brady Herbert on 03-26-2023 Monocytes (Bld) [#/Vol] 0.6 10*3/uL 0.0-0.8 [facility] Monocytes/100 WBC Auto (Bld) Ordered By: Brady Herbert on 03-26-2023 Monocytes/100 WBC (Bld) 6.1 % . [facility] Natriuretic peptide B [Mass/ Vol]Ordered By: Brady Herbert on 03-26-2023 Natriuretic peptide B (Bld) [Mass/Vol] 9.0 pg/mL 5-100 [facility] Neutrophils Auto (Bld) [#/Vo l]Ordered By: Brady Herbert on 03-26-2023 Neutrophils (Bld) [#/Vol] 6.5 10*3/uL 1.8-7.7 [facility] Neutrophils/100 WBC Auto (Bl d)Ordered By: Brady Herbert on 03-26-2023 Neutrophils/100 WBC (Bld) 65.4 % . [facility] No Panel InformationOrdered By: Brady Herbert on 03-26-2023 Estimated GFR (CKD-EPI) > 60.0 mL/Min [facility] Creatinine Clearance (Chem 107.58 [facility] Nucleated erythrocytes [Pres ence] in Blood by Automated countOrdered By: Brady Herbert on 03-26-2023 Nucleated RBC Auto Ql (Bld) 0.0 /100{WBC} 0-0.5 [facility] Phosphate [Mass/volume] in S isiah or PlasmaOrdered By: Brady Herbert on 03-26-2023 Phosphate [Mass/Vol] 3.3 mg/dL 3.7-7.2 [facility] Phosphoruson 03-26-2023 Phosphate [Mass/Vol] 3.3 mg/dL Low 3.7-7.2 [facility] Comment on above: Performed By: #### B MP, CBC, PHOS, BNP, HS TROP, MG #### [address] Platelet mean volume Auto (B ld) [Entitic vol]Ordered By: Brady Herbert on 03-26-2023 Platelet mean volume (Bld) [Entitic vol] 9.0 fL 6.6-10.1 [facility] Platelets Auto (Bld) [#/Vol] Ordered By: Brady Herbert on 03-26-2023 Platelets (Bld) [#/Vol] 220 10*3/uL 150-450 [facility] Potassium [Moles/volume] in Serum or PlasmaOrdered By: Brady Herbert on 03-26-2023 Potassium [Moles/Vol] 4.0 mmol/L 3.5-5.1 [facility] RBC Auto (Bld) [#/Vol]Ordere d By: Brady Herbert on 03-26-2023 RBC (Bld) [#/Vol] 4.94 10*6/uL 3.90-5.60 [facility] Serum or plasma anion gap de terminationOrdered By: Brady Herbert on 03-26-2023 Anion gap [Moles/Vol] 8.6 mmol/L 6.0-15.0 [facility] Sodium [Moles/volume] in Ser um or PlasmaOrdered By: Brady Herbert on 03-26-2023 Sodium [Moles/Vol] 139 mmol/L 136-145 [facility] Troponin I High Sensitivityo n 03-26-2023 Troponin I High Sensitivity 7.6 pg/mL Normal 0.0-20.0 [facility] Comment on above: Result Comment: PERF ORMED BY: [place] [address] PATHOLOGIST [employer] STUART SIGALA M.D. Performed By: #### B MP, CBC, PHOS, BNP, HS TROP, MG #### [facility] [address] Troponin I.cardiac [Mass/vol ume] in Serum or Plasma by Detection limit <= 0.01 ng/Ordered By: Brady Herbert on 03-26-2023 Troponin I.cardiac DL <= 0.01 ng/mL [Mass/Vol] 7.6 pg/mL 0.0-20.0 [facility] Urea nitrogen [Mass/volume] in Serum or PlasmaOrdered By: Brady Herbert on 03-26-2023 Urea nitrogen [Mass/Vol] 17 mg/dL 7-25 [facility] WBC Auto (Bld) [#/Vol]Ordere d By: Brady Herbert on 03-26-2023 WBC (Bld) [#/Vol] 9.9 10*3/uL 4.1-10.5 [facility] XR chest 1V portableon 03-26 XR chest 1V portable [facility] Main [place] [address] [id number] XRay Report Signed Patient: Katelynn Burdick MR#: [id number] 1 : 1975 Acct:[id number] Age/Sex: 47 / M ADM Date: 03/26/23 Loc: ER Room: Type: PRE ER Attending Dr: Copies to: Brady Herbert DO Ordering Provider: Brady Herbert DO Date of Service: 03/26/23 XR/XR chest 1V portable: Chest Pain PORTABLE AP ERECT CHEST 1813 hours CLINICAL HISTORY: Left upper chest pain. COMPARISON: 11/05/2011 The heart is within normal limits. There is no vascular congestion. The lungs, as visualized, are clear. There is no effusion or pneumothorax. The osseous structures are intact. XR/XR chest 1V portable IMPRESSION: NO ACUTE FINDINGS Impression dictated by: Alejandra Ivory M.D.03/26/2023 6:27 PM Dictation Location: [place] [address] Transcribed By: [facility] 03/26/231826 Dictated By: Alejandra Ivory MD 03/26/231825 Signed By: 03/26/231826 Normal [facility] CORONAVIRUS 2019 BY PCRon SARS-CoV-2 (COVID-19) RNA ROBBIE+probe Ql (Unsp spec) Detected Abnormal Not Detected [facility] Comment on above: Result Comment: . This assay is designed to detect SARS-CoV-2 based on replication of specific regions of the RNA from the SARS-CoV-2 virus. A Not Detected result does not preclude 2019-nCoV infection since the adequacy of sample collection and/or low viral burden may result in presence of viral nucleic acids below the clinical sensitivity of this test method. Fact sheet for providers: https://www.fda.gov/media/011656/download Fact sheet for patients: https://www.fda.gov/media/375438/download This test has received FDA Emergency Use Authorization [EUA] and has been verified by [facility] ([facility]). This test is only authorized for the duration of time that circumstances exist to justify the authorization of the emergency use of in vitro diagnostic tests for the detection of SARS-CoV-2 virus and/or diagnosis of COVID-19 infection under section 564(b)(1) of the Act, 21 U.S.C. 360bbb-3(b)(1), unless the authorization is terminated or revoked sooner. [facility] is certified under CLIA-88 as qualified to perform high complexity testing. Testing is performed in the [facility] laboratories located at [address] [place] [address]. Performed By: #### C OV19 #### [place] [address] Covid 19 Resultson 2 SARS-CoV-2 (COVID-19) RNA ROBBIE+probe Ql (Unsp spec) POSITIVE COVID-19 Test Coronaviruses are common world-wide and are the cause of many common colds. SARS-COV2 is a new coronavirus that began circulating worldwide in 2019 so we are calling it COVID-19. It has been estimated that four out of five patients with COVID-19 will recover at home without the need for medical attention. Symptoms of COVID-19 may include cough, fever, shortness of breath, loss of taste or smell and other flu-like symptoms including chills, sore muscles, sore throat, and headache. Severe illness is more common in older people and people with other health problems such as high blood pressure, obesity, and immune system problems. If the test is positive, you have COVID-19. You will be contacted by the ordering physicians office and instructed to remain on home isolation, in accordance with CDC guidelines. You may also be contacted by the [facility] to see if any of your close contacts may have been exposed to the virus and need to quarantine. If the test is negative, you likely do not have COVID-19 at this time, but you still may have a different illness that can spread to other people (like Influenza, or the Flu) and could still be at risk for getting COVID-19. We recommend that you stay away from other people to limit the spread of illness until your symptoms are improving and you are fever-free for 24 hours without the use of fever lowering medications such as acetaminophen or ibuprofen. No test is 100% accurate so if you are still concerned you may have COVID-19, talk to your doctor about the need to continue to stay away from others. Medicines Unless your provider told you not to use the following: Acetaminophen (Tylenol and others) is generally safe. Anti-inflammatory medications, such as Ibuprofen (Advil or Motrin) or Naproxen (Aleve) can also be used. Hsiu-hun-miacaem cough and cold medicines can be used according to the instructions on the package. Some pemr-euf-mdwiwwb medicines also contain acetaminophen. Make sure you are not taking more than your recommended dose. For those not hospitalized, there is no specific treatment available for this illness. Antibiotics do not treat Coronaviruses. Follow-Up Follow up with your doctor by scheduling a virtual visit or consider follow-up at one of our urgent care fever clinics. If you are having difficulty breathing, or are very weak and having difficulty standing, this is a medical emergency. Call 911 or have someone take you to the nearest emergency room immediately. If possible, wear a facemask. Additional guidance from the CDC for patients who tested POSITIVE for COVID-19 How to isolate: Isolate yourself in a specific room at home and limit your contact with others. Use a separate bathroom from other members of the household, when possible. Leave home only to get essential medical care. Do not go to work, school or public areas. Avoid using public transportation, ride-sharing, or taxis. Restrict contact with pets and other animals. If you must care for your pet or be around animals while you are sick, wash your hands before and after your interaction and wear a facemask. Make sure that shared spaces in the home have good airflow, such as by an air conditioner or an opened window, weather permitting. Personal Hygiene Procedures: Wear a face mask when in the same room as other people or pets. If a face mask interferes with your breathing, others should wear a mask when sharing space with you. Frequent hand-washing: wash your hands with soap and water for at least 20 seconds. If soap and water are not available, use alcohol-based hand induction coordination power engineer. Avoid touching your eyes, nose, and mouth with unwashed hands. Household Hygiene Procedures: Avoid sharing personal household items such as dishes, glassware, cups, eating utensils, towels or bedding with other people or pets in your home. After use, these items should be washed with soap and hot water. Disinfect all high-touch surfaces every day with antibacterial cleaning solutions such as Lysol wipes, bleach, cleansers, etc. High-touch surfaces include tabletops, doorknobs, bathroom fixtures, toilets, phones, keyboards, tablets and bedside tables. Immediately clean any surfaces that may have blood, poop or body fluids on them, using antibacterial cleaning solutions such as Lysol wipes, bleach, cleansers, etc. If clothing or bedding come into contact with blood, poop or body fluids, they should be washed immediately. Follow the directions on the laundry detergent and clothing labels but hot water is recommended when possible. Stopping home isolation precautions: If possible, consult your doctor before stopping home isolation precautions. According to the CDC, you can discontinue home isolation precautions when you have met both of these criteria: Your fever and respiratory symptoms have been gone for 24 anum (more content not included)... Normal [facility] CORONAVIRUS 2019 BY PCRon Lab Specimen Source Nasal, Nasopharyngeal Normal [facility] Comment on above: Performed By: #### C OV19 #### [facility] [address] [place] [id number] Coronavirus 2019 RNA by PCR, Symptomaticon 03-18-2022 Coronavirus 2019 RNA by PCR, Symptomatic Detected Abnormal See Below [facility] Work Phone: Comment on above: SOURCE: Nasal, Nasop haryngealReference Range: Not Detected.This assay is designed to detect SARS-CoV-2 based on replication of specific regions of the RNA from the SARS-CoV-2 virus. A Not Detected result does not preclude 2019-nCoV infection since the adequacy of sample collection and/or low viral burden may result in presence of viral nucleic acids below the clinical sensitivity of this test method. Fact sheet for providers: https://www.fda.gov/media/045797/downloadFact sheet for patients: https://www.fda.gov/media/256212/downloadThis test has received FDA Emergency Use Authorization [EUA] and has been verified by [facility] ([facility]). This test is only authorized for the duration of time that circumstances exist to justify the authorization of the emergency use of in vitro diagnostic tests for the detection of SARS-CoV-2 virus and/or diagnosis of COVID-19 infection under section 564(b)(1) of the Act, 21 U.S.C. 360bbb-3(b)(1), unless the authorization is terminated or revoked sooner. [facility] is certified under CLIA-88 as qualified to perform high complexity testing. Testing is performed in the [facility] laboratories located at [address] [place] [id number]. Office Visit (Urgent Care)on 03-18-2022 Follow-up visit Diagnoses/Problems Assessed Suspected COVID-19 virus infection (V01.79) (Z20.822) Orders Suspected COVID-19 virus infection Coronavirus 2019 RNA by PCR, Symptomatic; Status:In Progress - Specimen/Data Collected; Done: 18Mar2022 Perform:Lab Services - Lab To Draw (Non-Blood Test); Due:16Jun2022;Ordered; For:Suspected COVID-19 virus infection; Ordered By:Ladi Arcos; Patient Discussion/Summary COVID testing in progress. Expected results in 24-72 hours; practice social distancing, self quarantine and wear a mask. We will contact you with any positive results. Chief Complaint Duran/COVID Adult Risk Screening There are no spiritual/cultural practices/values/needs that are important to know Initial Fall Risk Screening: KATELYNN has not fallen in the last 6 months. Advanced Care Planning discussed and documented advance care plan or surrogate decision maker documented in the medical record. Tobacco Screening: KATELYNN does not use tobacco. History of Present Illness Patient is a 46-year-old male who presents for COVID-19 testing. He works for [employer]. He resents with a 1 day history of headaches, sore throat and nausea. His daughter was recently diagnosed with COVID-19. He denies cough and shortness of breath. No fevers or chills are noted. Constitutional: No fevers or chills. Eyes: no purulent discharge from the eyes and no eye pain. ENT: no nasal congestion, + sore throat and no earache. Neck: no mass(es) and no swelling. Cardiovascular: no chest pain and no palpitations. Respiratory: no cough, no shortness of breath, no orthopnea and no wheezing. Gastrointestinal: no abdominal pain, no vomiting, no diarrhea, no decrease in appetite and + nausea. Musculoskeletal: no arthralgias and myalgias. Neurological: + headache. Review of Systems Constitutional: as noted in HPI. Allergies NoKnown No Known Allergies Recorded By: Shae Brown; 03/18/2022 11:33:51 AM Vitals Vital Signs Recorded: 18Mar2022 11:31AM Ohulkdwnssz46.1 F, Temporal Heart Rate89 Jjkgokwtwuu92 Respiration QualityNormal Xfdfvlzh169, Sitting Qudlmxsox36, Sitting Blood Pressure Cuff SizeAdult Height6 ft 1 in Snzkui282 lb BMI Clpllvbusq04.78 kg/m2 BSA Calculated2.17 Tobacco Useb) No Falls Screening (Age 18+)a) No falls within the last year O2 Vqnitlcgcc06, RA Pain Scale0 PHQ-9 #1. Little interest or pleasure in doing things0-Not at all PHQ-9 #2. Feeling down, depressed, or hopelesS0-Not at all Physical Exam Constitutional: Well developed, well nourished. vital signs reviewed. patient alert patient without distress Head and Face: Head and face: Normal. Palpation of the face and sinuses: Normal. Eyes: Normal external exam - pupils were equal in size, round, reactive to light (PERRL) with normal accommodation and extraocular movements intact (EOMI). Pupils and irises: Normal. Ophthalmoscopic examination: Normal. Ears, Nose, Mouth, and Throat: External inspection of ears: Normal. Hearing: Normal. External inspection of nose: Normal. Nasal mucosa, septum, and turbinates: Normal. Lips, teeth, and gums: Normal. Oropharynx: Normal. Otoscopic examination: Normal. Neck: No neck mass was observed. Supple. normal range of motion. normal muscle tone. Cardiovascular: Heart rate normal, normal S1 and S2, no gallops, no murmurs and no pericardial rub. Rhythm: Normal. Pulmonary: No respiratory distress. Clear bilateral breath sounds. Abdomen: Soft nontender; no abdominal mass palpated. No organomegaly. Normal bowel sounds. Lymphatic: No cervical lymphadenopathy. Signatures Electronically signed by : Ladi Arcos MD; Mar 18 2022 12:23PM EST (Author) Normal [employer] Respirationon 03-18-2022 Fall risk assessment a) No falls within the last year [facility] Work Phone: Tobacco use status [facility] b) No [facility] Work Phone: Respiration Normal [facility] Work Phone: Respiration Adult [facility] Work Phone: Respiration 0-Not at all [facility] Work Phone: Vital Signs Date Time Vital Sign Value Performing Clinician Facility 12-08-2023 09:35-0400 Diastolic blood pressure 75 mm[Hg] DO Brady Petznick Work Phone: [facility] 12-08-2023 09:35-0400 Heart rate 63 /min DO Brady Petznick Work Phone: 7(219)265-950899 [place] [address] 12-08-2023 09:35-0400 Respiratory rate 16 /min DO Brady Petznick Work Phone: 2(143)323-798099 [place] [address] 12-08-2023 09:35-0400 SaO2% (BldA) [Mass fraction] 97 % DO Brady Petznick Work Phone: 8(180)737-289299 [place] [address] 12-08-2023 09:35-0400 Systolic blood pressure 110 mm[Hg] DO Brady Petznick Work Phone: 9(508)886-820034 [address] 12-08-2023 07:55-0400 Body height 185.42 cm DO Brady Petznick Work Phone: 3(226)344-153434 [address] 12-08-2023 07:55-0400 Body weight 83.91 kg DO Brady Petznick Work Phone: 8(372)783-328199 [place] [address] 03-26-2023 19:00-0400 Diastolic blood pressure 87 mm[Hg] DO Brady Petznick Work Phone: [facility] 03-26-2023 19:00-0400 Heart rate 72 /min DO Brady Petznick Work Phone: 3(157)703-394299 [place] [address] 03-26-2023 19:00-0400 Respiratory rate 18 /min DO Brady Petznick Work Phone: 7(778)700-504299 [place] [address] 03-26-2023 19:00-0400 SaO2% (BldA) [Mass fraction] 94 % DO Brady Petznick Work Phone: 3([phone])684-690999 [place] [address] 03-26-2023 19:00-0400 Systolic blood pressure 121 mm[Hg] DO Brady Petznick Work Phone: [facility] 03-26-2023 17:35-0400 Body height 185.42 cm DO Brady Petznick Work Phone: [facility] 03-26-2023 17:35-0400 Body temperature 98.2 [degF] DO Brady Rosas Work Phone: [facility] 03-26-2023 17:35-0400 Body weight 92.15 kg DO Brady Mongeznick Work Phone: [facility] 03-18-2022 11:31-0400 Body height 185.42 cm Brady Mongeznick Work Phone: [facility] Work Phone: 03-18-2022 11:31-0400 Body mass index (BMI) [Ratio] 26.78 kg/m2 rBady Mongeznick Work Phone: [facility] Work Phone: 03-18-2022 11:31-0400 Body surface area Derived from formula 2.17 m2 Brady Mongeznick Work Phone: [facility] Work Phone: 03-18-2022 11:31-0400 Body temperature 98.1 [degF] Brady Grahamick Work Phone: [facility] Work Phone: 03-18-2022 11:31-0400 Body weight 92.08 kg Brady Mongeznick Work Phone: [facility] Work Phone: 03-18-2022 11:31-0400 Diastolic blood pressure 69 mm[Hg] Brady Mongeznick Work Phone: [facility] Work Phone: 03-18-2022 11:31-0400 Heart rate 89 /min Brady Mongeznick Work Phone: [facility] Work Phone: 03-18-2022 11:31-0400 Respiratory rate 20 /min Brady C Petznick Work Phone: [facility] Work Phone: 03-18-2022 11:31-0400 SaO2% (BldA) [Mass fraction] 98 % Brady Mongeznick Work Phone: [facility] Work Phone: 03-18-2022 11:31-0400 Systolic blood pressure 126 mm[Hg] Brady Grahamick Work Phone: [facility] Work Phone: 03-18-2022 11:31-0400 0 1 Brady Grahamick Work Phone: [facility] Work Phone: Comment on above: PainScale Encounters Encounter Date Encounter Type Care Provider Facility Start: 12-08-2023 End: 12-08-2023 ambulatory Rbady Petkieranick Facility:[facility] Start: 12-08-2023 Non-patient / Non-visit DO Brady Petznick Work Phone: [facility] Work Phone: Start: 12-08-2023 End: 12-08-2023 Admission to same day surgery center DO Brady Petznick Work Phone: [facility] Work Phone: Start: 12-08-2023 End: 12-08-2023 ambulatory DO Brady Petznick Work Phone: [facility] Work Phone: Start: 04-30-2023 End: 04-30-2023 ambulatory Brady Petznick Facility:[facility] Start: 04-30-2023 End: 04-30-2023 ambulatory DO Brady Petznick Work Phone: [facility] Work Phone: Start: 04-30-2023 End: 04-30-2023 Patient encounter procedure DO Brady Petznick Work Phone: [facility] [place] Work Phone: Start: 04-23-2023 End: 04-23-2023 ambulatory DO Brady Rosas Work Phone: [facility] Work Phone: Start: 04-23-2023 End: 04-23-2023 Patient encounter procedure DO Brady Rosas Work Phone: [facility] [place] Work Phone: Start: 04-16-2023 End: 04-16-2023 ambulatory Brady Rosas Facility:[facility] Start: 04-16-2023 End: 04-16-2023 Patient encounter procedure DO Brady Rosas Work Phone: [facility] [place] Work Phone: Start: 03-26-2023 End: 03-26-2023 Emergency department patient visit Brady Rosas Facility:[facility] Start: 03-26-2023 End: 03-26-2023 Emergency department patient visit DO Brady Rosas Work Phone: [facility] Work Phone: Start: 03-19-2022 Chart Update Brady Jacob katya Work Phone: [facility] Work Phone: Start: 03-18-2022 Adv care pln tlkd & alt dcsn maker docd Brady Rosas Work Phone: [facility] Work Phone: Start: 03-18-[address] Ladi Arcos Facility:[id number] Procedures Date Procedure Procedure Detail Performing Clinician Start: 12-08-2023 Screening colonoscopy D O Brady Rosas Work Phone: Start: 03-26-2023 Plain chest X-ray DO Ma tthew Petznick Work Phone: Plan of Treatment Date Care Activity Detail Author Start: 12-08-2023 [facility] Patient Education [facility] Work Phone: Patient referral [facility] Work Phone: Payers Date Payer Category Payer Unknown [id number] 2023 Self-pay 2023 Unknown [id number] 1975 Unknown [id number] Unknown [employer] Unknown [id number] Unknown [id number] Unknown [id number] Unknown [id number] Social History Date Type Detail Facility Start: 03-26-2023 End: 12-08-2023 Tobacco smoking status PAIS Smoker (finding) [facility] Start: 1975 Sex Assigned At Male F [facility] Goals Date Patient Goal Desired Activity /State Procedure note 12-08-2023 Note Date & Type Note Facility 12-08-2023 Procedure note [facility] Evaluation note Note Date & Type Note Facility Evaluation note No assessment information availa ble [facility] Work Phone: History and physical note Note Date & Type Note Facility History and physical note Note Date/Time December 08, 2023 8:4 6am [facility] [address] [place] [address] Gastroenterology H&P Signed Patient: Katelynn Burdick MR#: [id number] : 1975 Acct:[id number] Age/Sex: 48 / M Adm Date: 04/25/2 4 Loc: Room: Type: [facility] Attending Dr: Martin Jacobo MD Copies to: Martin Jacobo MD Brady Damon Ralph, DO~ Date of Service: 12/08/2023 HISTORY & PHYSICAL: Patient's history with special attention to the cardiovascular, pulmonary systems and the current problem was reviewed with the patient immediately prior to the procedure. Present medications and doses reviewed in the EMR. Allergies and pertinent laboratory tests were also reviewedat this time in the EMR. The physical examination, as below, was then performed. Indication, assessment and HPI: 48-year-old male presents for average risk screening colonoscopy Family history of GI malignancy? No PHYSICAL EXAMINATION Mouth and Pharynx : Moist mucus membranes, normal dentition Cardiac: Regular rate, regular rhythm Pulmonary: Clear to auscultation bilaterally, no wheezing Neurological: Alert and oriented x3, no focal deficits noted Abdomen: Abdomen soft, non-tender REVIEW OF SYSTEMS Constitutional: Denies malaise, fevers Cardiovascular: Denies chest pain, palpitations Respiratory: Denies shortness of breath, wheezing Gastrointestinal: Per HPI Genitourinary: Denies dysuria, polyuria Musculoskeletal: Denies joint swelling, joint stiffness Neurological: Denies numbness, tingling Integumentary: Denies rashes, skin lesions Endocrine: Denies fatigue, weight loss Written informed consent obtained from the patient. Risks (including but not limited to perforation, infection, bloating, bleeding, need for emergent surgeryand loss of life), benefits and alternatives explained and questions answered. The patient verbalized understanding. Based on history patient is an appropriate candidate for the procedure. Martin Jacobo MD Documented By: Martin Jacobo MD 12/08/23 0845 Signed By: <Electronically signed by Martin Jacobo MD> 12/08/2346 [facility] Work Phone: History of Present illness Narrative Note Date & Type Note Facility History of Present illness Narrative Patient is a 46-year-old male who presents for COVID-19 testing. He works for [employer]. He resents with a 1 day history of headaches, sore throat and nausea. His daughter was recently diagnosed with COVID-19. He denies cough and shortness of breath. No fevers or chills are noted.Constitutional: No fevers or chills.Eyes: no purulent discharge from the eyes and no eye pain.ENT: no nasal congestion, + sore throat and no earache.Neck: no mass(es) and no swelling.Cardiovascular: no chest pain and no palpitations.Respiratory: no cough, no shortness of breath, no orthopnea and no wheezing.Gastrointestinal: no abdominal pain, no vomiting, no diarrhea, no decrease in appetite and + nausea.Musculoskeletal: no arthralgias and myalgias.Neurological: + headache. [facility] Work Phone: Chief Complaint Duran/COVID Summary Purpose Family History No Family History Records Found Relationship Condition Age at Onset Recorded Date/T nydia father Diabetes mellitus Unknown Heart disease Unknown grandparent Malignant neoplasm of pancreas Unknown Advance Directives No Advanced Directives Records Found Advance Directive Response Recorded Date/ Time Advance Directives No March 26, 2023 7:09pm Chief Complaint and Reason for Visit Chief Complaint chest pain Chief Complaint chest pain e83.39 z00.00 e83.39 Chief Complaint chest pain e83.39 z00.00 e83.39 E83.39 Chief Complaint Screening Screening Additional Source Comments (unrecognized sect ion and content) No Status Records FoundNo Status Records FoundNo Status Records FoundNo Status Records Found INFORMATION SOURCE (unrecogn ized section and content) DATE CREATED AUTHOR 03/19/2022 [employer] DATE CREATED AUTHOR AUTHOR'S ORGANIZ ATION 03/20/2022 [facility] DATE CREATED AUTHOR AUTHOR'S ORGANIZ ATION [facility] DATE CREATED AUTHOR AUTHOR'S ORGANIZ ATION 12/16/2023 [facility] Care Teams (unrecognized sec tion and content) Team Status: Active Member Role Status Dates Brady Rosas DO Primary Care Provider Active Team Status: Inactive Member Role Status Dates Brady Rosas DO Primary Care Provider Active Brady Herbert DO Emergency Provider Active Team Status: Inactive Member Role Status Dates Brady Rosas DO Primary Care Provider, Attending Provider Active Team Status: Inactive Member Role Status Dates Brady Rosas DO Primary Care Provider Active Start: December 08, 2023 End: December 08, 2023 Martin Jacobo MD Attending Provider Active S tart: December 08, 2023 End: December 08, 2023 Team Status: Active Member Role Status Dates Brady Rosas DO Primary Care Provider Active Start: December 08, 2023 Martin Jacobo MD Attending Provider, Other Provider Active Start: December 08, 2023 Goals (unrecognized section and content) Goals may be documented in a n alternate sectionGoals may be documented in an alternate sectionGoals may be documented in an alternate section FOR RECORDS PERTAINING TO PATIENTS WHO ARE OR HAVE BEEN ENROLLED IN A CHEMICAL DEPENDENCY/SUBSTANCEABUSE PROGRAM, SOME INFORMATION MAY BE OMITTED. This clinical summary was aggregated from multiple sources. Caution should be exercised in using it in the provision of clinical care. This summary normalizes information from multiple sources, and as a consequence, information in this document may materially change the coding, format and clinical context of patient data. In addition, data may be omitted in some cases. CLINICAL DECISIONS SHOULD BE BASED ON THE PRIMARY CLINICAL RECORDS. [facility] [employer] [facility]. provides no warranty or guarantee of the accuracy or completeness of information in this document.
--- NOTE | 2024-03-24 15:09 | ED_ITS ---
HPI HPI - Neck Pain/Injury General Chief Complaint: Neck Pain/Injury Stated Complaint: neck pain Time Seen by Provider: 03/24/24 14:48 History of Present Illness HPI Narrative: The patient is coming to the ER to be evaluated with neck pain for the second day after he was just evaluated yesterday, he mentioned that he took 2 doses of the muscle relaxant is not helping and he also took 2 doses of the etodolac Patient denies any weakness in his right hand he denies any nausea vomiting or any other complaint Related Data Previous Rx's ?Medication ?Instructions ?Recorded etodolac 400 mg tablet 400 mg PO Q8H PRN pain #20 tabs 03/23/24 cyclobenzaprine 10 mg tablet 10 mg PO BID PRN muscle spasm #14 03/24/24 tabs prednisone 20 mg tablet 40 mg (2 x 20 mg) PO DAILY 5 days 03/24/24 #10 tabs Allergies Allergy/AdvReac Type Severity Reaction Status Date / Time opiates AdvReac Unknown Uncoded 03/23/24 11:54 Opioid HPI Opioid Management Most Recent Opioid Data: Last OCT Pain Assessment 03/23/24 12:28 Review of Systems ROS Status of ROS 10 or more systems reviewed and unremark able except as noted in history and below Exam Narrative Exam Narrative: Nurses notes and vital signs reviewed and patient is not hypoxic. General: Well-appearing and in no apparent distress. Skin: Warm, dry, no pallor noted. No rash. Head: Normocephalic, atraumatic. Neck: Supple, non-tender. The patient have mild right paraspinal muscle tenderness mostly toward the shoulder joint on the right side he also have some right anterior shoulder tenderness but there is full range of movement preserved Eye: Pupils are equal, round and EOMI. No scleral icterus. Ears, Nose, Mouth, and Throat: TM are clear, no nasal mucosal hypertrophy. Oral mucosa is moist, no posterior oropharynx erythema, uvula is mid-line Cardiovascular: Regular Rate and Rhythm without murmur, gallop or rub. Respiratory: No accessory muscle use or respiratory distress. Lungs are clear to auscultation, no wheezing, rales or rhonchi Chest Wall: no tenderness Back: No midline thoracic or lumbar vertebral tenderness. No CVA tenderness Musculoskeletal: normal ROM, no calf or popliteal tenderness, no lower extremity edema/swelling GI: Abdomen is soft, non-distended. Normal bowel sounds. No masses appreciated. No tenderness to palpation. No rebound, guarding, or rigidity noted. Neurological: A&O x4. No cranial nerve dysfunction observed. No truncal ataxia. Moves all extremities. Sensation intact. Psychiatric: Cooperative and interactive. Normal mood and affect. Constitutional Vital Signs, click to edit/add: Last Vital Signs Temp 97.8 F 03/24/24 14:37 Pulse 74 03/24/24 14:37 Resp 20 03/24/24 14:37 BP 137/90 03/24/24 14:37 Pulse Ox 97 03/24/24 14:37 O2 Del Method Room Air 03/24/24 14:37 Course Vital Signs Vital signs: Vital Signs Temperature 97.8 F 03/24/24 14:37 Pulse Rate 74 03/24/24 14:37 Respiratory Rate 20 03/24/24 14:37 Blood Pressure 137/90 03/24/24 14:37 Pulse Oximetry 97 03/24/24 14:37 Oxygen Delivery Method Room Air 03/24/24 14:37 Temperature 97.8 F 03/24/24 14:37 Pulse Rate 74 03/24/24 14:37 Respiratory Rate 20 03/24/24 14:37 Blood Pressure 137/90 03/24/24 14:37 Pulse Oximetry 97 03/24/24 14:37 Oxygen Delivery Method Room Air 03/24/24 14:37 MDM - Neck Pain/Injury MDM Narrative Medical decision making narrative: The patient presented to us with a neck pain mostly secondary to torticollis Patient seemed anxious as he is asking for pain medication shot that would resolve the pain I did explain to him the right now given Toradol as well as steroid in the ER and he will be discharged with Flexeril instead of the Robaxin The patient is to follow up with primary care physician in next 2-3 days or to return to the emergency department should any of the signs or symptoms worsen or new symptoms develop. The patient agrees with the following Diagnosis and Treatment plan and the patient will be discharged home. Discharge Plan Discharge Stand Alone Forms: Portal Instructions Chief Complaint: Neck Pain/Injury Clinical Impression: Acute torticollis, Neck pain Patient Disposition: Home, Self-Care Time of Disposition Decision: 15:06 Condition: Good Prescriptions / Home Meds: New cyclobenzaprine 10 mg tablet 10 mg PO BID PRN (Reason: muscle spasm) Qty: 14 0RF prednisone 20 mg tablet 40 mg PO DAILY 5 Days Qty: 10 0RF Discontinued naproxen sodium [Aleve] 220 mg capsule 660 mg PO ONCE PRN (Reason: pain) methocarbamol 500 mg tablet 500 mg PO Q8H PRN (Reason: pain) Qty: 20 0RF No Action etodolac 400 mg tablet 400 mg PO Q8H PRN (Reason: pain) Qty: 20 0RF Print Language: [place] Citizen Instructions: Neck Pain (ED) Referrals: DOMINICK PICKENS [Primary Care Provider] - 1 week
[2024-03-24] MEDS: CYCLOBENZAPRINE HCL 10 MG TABLET PO (15:12)
[2024-03-24] MEDS: KETOROLAC TROMETHAMINE 30 MG/ML VIAL IM (15:12)
[2024-03-24] MEDS: METHYLPREDNISOLONE SOD SUCC PF 40 MG/ML VIAL IM (15:12)
== END 2024-03-24 15:30 | disposition home or self-care (01) ==
PROVIDERS: Emergency Provider Emergency Medicine; PCP Family Medicine
DX: M43.6 Torticollis (principal); M54.2 Cervicalgia
CPT/HCPCS: 96372; 99284; J1885; J2919

== ENCOUNTER 2024-04-03 09:35 | Outpatient (OUT) | payer OTHER, SELFPAY ==
--- OUTSIDE RECORDS SUMMARY | 2024-03-30 09:47 | XMS_ITS | CCD ---
Author Organization [facility] Care Team Providers Care Acute Care Nurse Name Role Phone Brady Rosas Unavailable Unavailable Unavailable Dr. Ladi Arcos Attending Unavailabl e Ralph, Dr. Brady Ryder Primary Care Un available Ralph, DO Abreu Primary Care Provider DO Brady Herbert Emergency Provider UnaDO Brady Elizabeth Attending Provider [phone] Ralph, DO Abreu Primary Care Provider [phone] MD Martin Jacobo Attending Provider Brady Rosas Primary Care Unavailable Brady Herbert [...] Test Name Value Interpretation Reference Range Facility [facility] 12-08-2023 L Specimen: [id number] Received: 12/08/23 Status: [place] Peoples Num: [id number] Spec Type: Surgical Subm Dr: Martin Jacobo MD Tissues: A Colon Biopsy (DESC POLYP) B Colon Biopsy (SIGMOID POLYP) Procedures: HE/4, Gross/Micro L4/2 Age/ Patient Sex Location Account Attending Physician Katelynn Burdick 48/M [id number] Martin Jacobo MD SPEC NUM: [id number] RECD: 12/08/23 STATUS: HALIMAAkin [place] NUM: [id number] SRIRAM: 12/08/23- SUBM DR: Martin Jacobo MD ENTERED: 12/08/23 [facility] DR: SPEC TYPE: Surgical DEPT: S [...] in B1. Clinical history screening TW Specimen: [id number] Received: 12/08/23 Status: [place] [facility] Num: [id number] Spec Type: Surgical Subm Dr: Martin Jacobo MD Tissues: A Colon Biopsy (DESC POLYP) B Colon Biopsy (SIGMOID POLYP) Procedures: HE/Jadiel, Gross/Micro L4/2 Patient: Katelynn Burdick [id number] (Continued) Specimen: [id number] Received: 12/08/23 (Continued) Signed (signature on file) Theresa Oconnor MD 12/10/23 1313 Specimen: [id number] Received: 12/08/23 Status: [place] [facility] Num: [id number] Spec Type: Surgical Subm Dr: Martin Jcaobo MD Tissues: A Colon Biopsy (DESC POLYP) B Colon Biopsy (SIGMOID POLYP) Procedures: /, Gross/Micro L4/2 Patient: Katelynn Burdick [id number] (Continued) Specimen: Received: 12/08/23 (Continued) CPT Codes 67258U3 Specimen: [id number] Received: 12/08/23 Status: [place] [facility] Num: [id number] Spec Type: Surgical Subm Dr: Martin Jacobo MD Tissues: A Colon Biopsy (DESC POLYP) B Colon Biopsy (SIGMOID POLYP) Procedures: HE/4, Gross/Micro L4/2 Patient: Katelynn Burdick [id number] (Continued) Signed (signature on file) Theresa Oconnor MD 12/10/23 1313 Normal [facility] Alanine aminotransferase [En zymatic activity/volume] in Serum or PlasmaOrdered By: Brady Rosas on 04-16-2023 ALT [Catalytic activity/Vol] 26 U/L 7-52 [facility] Albumin [Mass/volume] in Ser um or Plasma by Bromocresol green (BCG) dye binding methoOrdered By: Brady Rosas on 04-16-2023 Albumin BCG dye [Mass/Vol] 4.5 g/dL 3.5-5.7 [facility] Alkaline phosphatase [Enzyma tic activity/volume] in Serum or PlasmaOrdered By: Brady Rosas on 04-16-2023 ALP [Catalytic activity/Vol] 61 U/L 34-104 [facility] Aspartate aminotransferase [ Enzymatic activity/volume] in Serum or PlasmaOrdered By: Brady Rosas on 04-16-2023 AST [Catalytic activity/Vol] 18 U/L 13-39 [facility] Basophils Auto (Bld) [#/Vol] Ordered By: Brady Rosas on 04-16-2023 Basophils (Bld) [#/Vol] 0.1 10*3/uL 0.0-0.2 [facility] Basophils/100 WBC Auto (Bld) Ordered By: Brady Rosas on 04-16-2023 Basophils/100 WBC (Bld) 0.7 % . [facility] Bilirubin.total [Mass/volume ] in Serum or PlasmaOrdered By: Brady Rosas on 04-16-2023 Bilirubin [Mass/Vol] 0.9 mg/dL 0.3-1.0 [facility] Calcium [Mass/volume] in Ser um or PlasmaOrdered By: Brady Rosas on 04-16-2023 Calcium [Mass/Vol] 9.4 mg/dL 8.6-10.[address] [facility] Carbon dioxide, total [Moles /volume] in Serum or PlasmaOrdered By: Brady Rosas on 04-16-2023 CO2 [Moles/Vol] 30.6 mmol/L 21.0-31.0 [facility] Chloride [Moles/volume] in S isiah or PlasmaOrdered By: Brady Rosas on 04-16-2023 Chloride [Moles/Vol] 107 mmol/L 98-107 [facility] Cholesterol [Mass/volume] in Serum or PlasmaOrdered By: Brady Rosas on 04-16-2023 Cholesterol [Mass/Vol] 187 mg/dL 140-200 [facility] Comment on above: Chol less than 200 m g/dl low riskChol 201-239 mg/dl borderline riskChol 240 mg/dl and greater high risk Cholesterol in LDL Calc [Mas s/Vol]Ordered By: Brady Rosas on 04-16-2023 Cholesterol in LDL [Mass/Vol] 127 mg/dL 0-100 [facility] Comment on above: LDL ATP III CLASSIFI CATIONLDL less than 100 mg/dL OptimalLDL 100-129 mg/dL Near or above optimalLDL 130-159 mg/dL Borderline highLDL 160-189 mg/dL HighLDL greater than 189 mg/dL Very high Cholesterol in VLDL Calc [Ma ss/Vol]Ordered By: Brady Mongechandler on 04-16-2023 Cholesterol in VLDL [Mass/Vol] 22 mg/dL [facility] Complete Blood Count Auto Di ffon 04-16-2023 Basophils (Bld) [#/Vol] 0.1 10*3/uL Normal 0.0-0.2 [facility] Comment on above: Result Comment: PERF ORMED BY: [place] [address] PATHOLOGIST MEAT AND SEAFOOD CLERK STUART SIGALA M.D. Performed By: #### L IPID, PTH, CBC, CMP, PHOS, PSAS, TSH3, T4F, URMACRERAT, [id number], MG #### [facility] [address] [place] [address] [place] #### CAION #### [facility] , Basophils/100 WBC (Bld) 0.7 % Normal . [facility] Comment on above: Performed By: #### L IPID, PTH, CBC, CMP, PHOS, PSAS, TSH3, T4F, URMACRERAT, [id number], MG #### [facility] [address] [place] [address] [place] #### CAION #### [facility] , Eosinophils (Bld) [#/Vol] 0.1 10*3/uL Normal 0.0-0.45 [facility] Comment on above: Performed By: #### L IPID, PTH, CBC, CMP, PHOS, PSAS, TSH3, T4F, URMACRERAT, [id number], MG #### [place] [address] [place] #### CAION #### [facility] , Eosinophils/100 WBC (Bld) 1.4 % Normal . [facility] Comment on above: Performed By: #### L IPID, PTH, CBC, CMP, PHOS, PSAS, TSH3, T4F, URMACRERAT, [id number], MG #### [place] [address] [place] #### CAION #### [facility] , Erythrocyte distribution width (RBC) [Ratio] 13.6 % Normal 12.0-14.8 [facility] Comment on above: Performed By: #### L IPID, PTH, CBC, CMP, PHOS, PSAS, TSH3, T4F, URMACRERAT, [id number], MG #### [address] #### CAION #### [facility] , Hematocrit (Bld) [Volume fraction] 48.6 % Normal 38.8-50.0 [facility] Comment on above: Performed By: #### L IPID, PTH, CBC, CMP, PHOS, PSAS, TSH3, T4F, URMACRERAT, [id number], MG #### [address] #### CAION #### [facility] , Hemoglobin (Bld) [Mass/Vol] 16.7 g/dL Normal 13.0-17.0 [facility] Comment on above: Performed By: #### L IPID, PTH, CBC, CMP, PHOS, PSAS, TSH3, T4F, URMACRERAT, [id number], MG #### [place] [address] [place] #### CAION #### [facility] , Lymphocytes (Bld) [#/Vol] 2.2 10*3/uL Normal 1.00-4.8 [facility] Comment on above: Performed By: #### L IPID, PTH, CBC, CMP, PHOS, PSAS, TSH3, T4F, URMACRERAT, [id number], MG #### [place] [address] [place] #### CAION #### [facility] , Lymphocytes/100 WBC (Bld) 28.5 % Normal . [facility] Comment on above: Performed By: #### L IPID, PTH, CBC, CMP, PHOS, PSAS, TSH3, T4F, URMACRERAT, [id number], MG #### [place] [address] [place] #### CAION #### [facility] , MCH (RBC) [Entitic mass] 32.7 pg Normal 27.5-35.2 [facility] Comment on above: Performed By: #### L IPID, PTH, CBC, CMP, PHOS, PSAS, TSH3, T4F, URMACRERAT, [id number], MG #### [address] #### CAION #### [facility] , MCV (RBC) [Entitic vol] 95.1 fL Normal 83.5-101 [facility] Comment on above: Performed By: #### L IPID, PTH, CBC, CMP, PHOS, PSAS, TSH3, T4F, URMACRERAT, [id number], MG #### [place] [address] [place] #### CAION #### [facility] , Mean Corpuscular HGB Conc 34.4 g/dL Normal 32.5-35.6 [facility] Comment on above: Performed By: #### L IPID, PTH, CBC, CMP, PHOS, PSAS, TSH3, T4F, URMACRERAT, [id number], MG #### [place] [address] [place] #### CAION #### [facility] , Monocytes (Bld) [#/Vol] 0.4 10*3/uL Normal 0.0-0.8 [facility] Comment on above: Performed By: #### L IPID, PTH, CBC, CMP, PHOS, PSAS, TSH3, T4F, URMACRERAT, [id number], MG #### [address] #### CAION #### [facility] , Monocytes/100 WBC (Bld) 5.0 % Normal . [facility] Comment on above: Performed By: #### L IPID, PTH, CBC, CMP, PHOS, PSAS, TSH3, T4F, URMACRERAT, [id number], MG #### [address] #### CAION #### [facility] , Neutrophils (Bld) [#/Vol] 5.0 10*3/uL Normal 1.8-7.7 [facility] Comment on above: Performed By: #### L IPID, PTH, CBC, CMP, PHOS, PSAS, TSH3, T4F, URMACRERAT, [id number], MG #### [address] #### CAION #### [facility] , Neutrophils/100 WBC (Bld) 64.4 % Normal . [facility] Comment on above: Performed By: #### L IPID, PTH, CBC, CMP, PHOS, PSAS, TSH3, T4F, URMACRERAT, [id number], MG #### [place] [address] [place] #### CAION #### [facility] , NRBC% 0.1 /100{WBC} Normal 0-0.5 [facility] Comment on above: Performed By: #### L IPID, PTH, CBC, CMP, PHOS, PSAS, TSH3, T4F, URMACRERAT, [id number], MG #### [facility] [address] [place] [address] [place] #### CAION #### [facility] , Platelet mean volume (Bld) [Entitic vol] 9.7 fL Normal 6.6-10.1 [facility] Comment on above: Performed By: #### L IPID, PTH, CBC, CMP, PHOS, PSAS, TSH3, T4F, URMACRERAT, [id number], MG #### [facility] [address] [place] [address] #### CAION #### [facility] , Platelets (Bld) [#/Vol] 217 10*3/uL Normal 150-450 [facility] Comment on above: Performed By: #### L IPID, PTH, CBC, CMP, PHOS, PSAS, TSH3, T4F, URMACRERAT, [id number], MG #### [address] #### CAION #### [facility] , RBC (Bld) [#/Vol] 5.11 10*6/uL Normal 3.90-5.60 [facility] Comment on above: Performed By: #### L IPID, PTH, CBC, CMP, PHOS, PSAS, TSH3, T4F, URMACRERAT, [id number], MG #### [place] [address] [place] #### CAION #### [facility] , WBC (Bld) [#/Vol] 7.8 10*3/uL Normal 4.1-10.5 [facility] Comment on above: Performed By: #### L IPID, PTH, CBC, CMP, PHOS, PSAS, TSH3, T4F, URMACRERAT, [id number], MG #### [address] #### CAION #### [facility] , Comprehensive Metabolic Pane christine 04-16-2023 Albumin [Mass/Vol] 4.5 g/dL Normal 3.5-5.7 [facility] Comment on above: Performed By: #### B MP, CBC, PHOS, BNP, HS TROP, MG #### [address] Albumin/Globulin [Mass ratio] 1.9 {ratio} Normal [facility] Comment on above: Performed By: #### B MP, CBC, PHOS, BNP, HS TROP, MG #### [address] ALP [Catalytic activity/Vol] 61 U/L Normal 34-104 [facility] Comment on above: Performed By: #### B MP, CBC, PHOS, BNP, HS TROP, MG #### [address] ALT [Catalytic activity/Vol] 26 U/L Normal 7-52 [facility] Comment on above: Performed By: #### B MP, CBC, PHOS, BNP, HS TROP, MG #### [address] Anion gap [Moles/Vol] 7.9 mmol/L Normal 6.0-15.0 [facility] Comment on above: Performed By: #### B MP, CBC, PHOS, BNP, HS TROP, MG #### [address] AST [Catalytic activity/Vol] 18 U/L Normal 13-39 [facility] Comment on above: Performed By: #### B MP, CBC, PHOS, BNP, HS TROP, MG #### [address] Bilirubin [Mass/Vol] 0.9 mg/dL Normal 0.3-1.0 [facility] Comment on above: Performed By: #### B MP, CBC, PHOS, BNP, HS TROP, MG #### [address] Calcium [Mass/Vol] 9.4 mg/dL Normal 8.6-10.3 [facility] Comment on above: Performed By: #### B MP, CBC, PHOS, BNP, HS TROP, MG #### [address] Chloride [Moles/Vol] 107 mmol/L Normal 98-107 [facility] Comment on above: Performed By: #### B MP, CBC, PHOS, BNP, HS TROP, MG #### [address] CO2 [Moles/Vol] 30.6 mmol/L Normal 21.0-31.0 [facility] Comment on above: Performed By: #### B MP, CBC, PHOS, BNP, HS TROP, MG #### [address] Creatinine [Mass/Vol] 0.87 mg/dL Normal 0.70-1.30 [facility] Comment on above: Performed By: #### B MP, CBC, PHOS, BNP, HS TROP, MG #### [address] GFR/1.73 sq M.predicted MDRD (S/P/Bld) [Vol rate/Area] mL/min/{1.73_m2} Normal [facility] Comment on above: Performed By: #### B MP, CBC, PHOS, BNP, HS TROP, MG #### [address] Globulin (S) [Mass/Vol] 2.4 g/dL Normal [facility] Comment on above: Performed By: #### B MP, CBC, PHOS, BNP, HS TROP, MG #### [address] Glucose [Mass/Vol] 92 mg/dL Normal 70-100 [facility] Comment on above: Result Comment: [place] Glucose Reference Range is dependent on time and content of last meal. Glucose of more than 200 mg/dL in a nonstressed, ambulatory subject supports the diagnosis of Diabetes Mellitus. ADA recommended reference range Performed By: #### B MP, CBC, PHOS, BNP, HS TROP, MG #### [address] Potassium [Moles/Vol] 4.5 mmol/L Normal 3.5-5.1 [facility] Comment on above: Performed By: #### B MP, CBC, PHOS, BNP, HS TROP, MG #### [address] Protein [Mass/Vol] 6.9 g/dL Normal 6.4-8.9 [facility] Comment on above: Performed By: #### B MP, CBC, PHOS, BNP, HS TROP, MG #### [address] Sodium [Moles/Vol] 141 mmol/L Normal 136-145 [facility] Comment on above: Performed By: #### B MP, CBC, PHOS, BNP, HS TROP, MG #### [address] Urea nitrogen [Mass/Vol] 13 mg/dL Normal 7-25 [facility] Comment on above: Performed By: #### B MP, CBC, PHOS, BNP, HS TROP, MG #### [address] Creatinine [Mass/volume] in Serum or PlasmaOrdered By: Brady oRsas on 04-16-2023 Creatinine [Mass/Vol] 0.87 mg/dL 0.70-1.30 [facility] Creatinine [Mass/volume] in UrineOrdered By: Brady Rosas on 04-16-2023 Creatinine (U) [Mass/Vol] 135.0 mg/dL 14.0-26.0 [facility] Eosinophils Auto (Bld) [#/Vo l]Ordered By: Brady Rosas on 04-16-2023 Eosinophils (Bld) [#/Vol] 0.1 10*3/uL 0.0-0.45 [facility] Eosinophils/100 WBC Auto (Bl d)Ordered By: Brady Rosas on 04-16-2023 Eosinophils/100 WBC (Bld) 1.4 % . [facility] Erythrocyte distribution wid th Auto (RBC) [Ratio]Ordered By: Brady Rosas on 04-16-2023 Erythrocyte distribution width (RBC) [Ratio] 13.6 % 12.0-14.8 [facility] Free T4 (Free Thyroxine)on 0 04-16-2023 Free T4 [Mass/Vol] 0.68 ng/dL Normal 0.61-1.12 [facility] Comment on above: Performed By: #### B MP, CBC, PHOS, BNP, HS TROP, MG #### [place] [id number] [facility] Globulin Calc (S) [Mass/Vol] Ordered By: Brady Rosas on 04-16-2023 Globulin (S) [Mass/Vol] 2.4 g/dL [facility] Glucose [Mass/volume] in Ser um or PlasmaOrdered By: Brady Rosas on 04-16-2023 Glucose [Mass/Vol] 92 mg/dL 70-[address] [facility] Comment on above: ADA recommended refe rence rangeRandom Glucose Reference Range is dependent on time and content of last meal. Glucose of more than 200 mg/dL in a nonstressed, ambulatory subject supports the diagnosis of Diabetes Mellitus. Hematocrit Auto (Bld) [Volum e fraction]Ordered By: Brady Rosas on 04-16-2023 Hematocrit (Bld) [Volume fraction] 48.6 % 38.8-50.0 [facility] Hemoglobin [Mass/volume] in BloodOrdered By: Brady Rosas on 04-16-2023 Hemoglobin (Bld) [Mass/Vol] 16.7 g/dL 13.0-17.0 [facility] Ionized Calciumon 04-16-2023 Ionized Calcium Normal . [facility] Comment on above: Result Comment: Test not performed. Deterioration occurred during specimen handling. contacted your facility on 04-20-2023 PERFORMED BY: [facility] [address] [place] [place] [id number] PATHOLOGIST MEAT AND SEAFOOD CLERK STUART SIAGLA M.D. Performed By: #### B MP, CBC, PHOS, BNP, HS TROP, MG #### [facility] [address] Leukocytes [#/volume] correc lolis for nucleated erythrocytes in Blood by Automated counOrdered By: Brady Rosas on 04-16-2023 WBC corrected for nucl RBC Auto (Bld) [#/Vol] 7.8 10*3/uL 4.1-10.5 [facility] Lipid Panelon 04-16-2023 Cholesterol [Mass/Vol] 187 mg/dL Normal 140-200 [facility] Comment on above: Result Comment: Chol less than 200 mg/dl low risk Chol 201-239 mg/dl borderline risk Chol 240 mg/dl and greater high risk Performed By: #### B MP, CBC, PHOS, BNP, HS TROP, MG #### [facility] [address] Cholesterol in HDL [Mass/Vol] 37 mg/dL Normal 23-92 [facility] Comment on above: Result Comment: HDL CHOL ATP-III CLASSIFICATION Cardiovascular Risk HDL > or equal to 60 mg/dL LOW HDL < 40 mg/dL HIGH Performed By: #### B MP, CBC, PHOS, BNP, HS TROP, MG #### [facility] [address] Cholesterol.total/Chol esterol in HDL [Mass ratio] 5.1 {ratio} Normal <5.0 [facility] Comment on above: Performed By: #### B MP, CBC, PHOS, BNP, HS TROP, MG #### [facility] [address] LDL Cholesterol,Calculated 127 mg/dL High 0-100 [facility] Comment on above: Result Comment: LDL ATP III CLASSIFICATION LDL less than 100 mg/dL Optimal LDL 100-129 mg/dL Near or above optimal LDL 130-159 mg/dL Borderline high LDL 160-189 mg/dL High LDL greater than 189 mg/dL Very high Performed By: #### B MP, CBC, PHOS, BNP, HS TROP, MG #### [facility] [address] Triglyceride w/Reflex 114 mg/dL Normal 0-149 [facility] Comment on above: Result Comment: TRIG ATP III CLASSIFICATION TRIG less than 150 mg/dL Normal TRIG 150-199 mg/dL Borderline high TRIG 200-500 mg/dL High TRIG greater than 500 mg/dL Very high Standard traceable to the Center for Disease Conrtrol and Prevention (CDC) test method. Performed By: #### B MP, CBC, PHOS, BNP, HS TROP, MG #### [facility] [address] VLDL CHOLESTEROL 22 mg/dL Normal [facility] Comment on above: Performed By: #### B MP, CBC, PHOS, BNP, HS TROP, MG #### [facility] [address] Lymphocytes Auto (Bld) [#/Vo l]Ordered By: Brady Rosas on 04-16-2023 Lymphocytes (Bld) [#/Vol] 2.2 10*3/uL 1.00-4.8 [facility] Lymphocytes/100 WBC Auto (Bl d)Ordered By: Brady Rosas on 04-16-2023 Lymphocytes/100 WBC (Bld) 28.5 % . [facility] MCH Auto (RBC) [Entitic mass ]Ordered By: Brady Rosas on 04-16-2023 MCH (RBC) [Entitic mass] 32.7 pg 27.5-35.2 [facility] MCHC Auto (RBC) [Mass/Vol]Or dered By: Brady Rosas on 04-16-2023 MCHC (RBC) [Mass/Vol] 34.4 g/dL 32.5-35.6 [facility] MCV Auto (RBC) [Entitic vol] Ordered By: Brady Rosas on 04-16-2023 MCV (RBC) [Entitic vol] 95.1 fL 83.5-101 [facility] Magnesiumon 04-16-2023 Magnesium [Mass/Vol] 2.1 mg/dL Normal 1.9-2.7 [facility] Comment on above: Performed By: #### B MP, CBC, PHOS, BNP, HS TROP, MG #### [address] Magnesium [Mass/volume] in S isiah or PlasmaOrdered By: Brady Rosas on 04-16-2023 Magnesium [Mass/Vol] 2.1 mg/dL 1.9-2.7 [facility] MicroAlb Creat Ratio,Uon Albumin DL <= 20 mg/L (U) [Mass/Vol] mg/dL Normal 0.0-1.8 [facility] Comment on above: Performed By: #### B MP, CBC, PHOS, BNP, HS TROP, MG #### [address] Creatinine, Urine (Random) 135.0 mg/dL High 14.0-26.0 [facility] Comment on above: Performed By: #### B MP, CBC, PHOS, BNP, HS TROP, MG #### [address] Microalbumin/Creatinin e Ratio Not performed Normal 0.0-30.0 [facility] Comment on above: Result Comment: PERF ORMED BY: [place] [address] PATHOLOGIST MEAT AND SEAFOOD CLERK STUART SIGALA M.D. Performed By: #### B MP, CBC, PHOS, BNP, HS TROP, MG #### [address] Microalbumin [Mass/volume] i n UrineOrdered By: Brady Rosas on 04-16-2023 Albumin DL <= 20 mg/L (U) [Mass/Vol] mg/dL 0.0-1.8 [facility] Monocytes Auto (Bld) [#/Vol] Ordered By: Brady Rosas on 04-16-2023 Monocytes (Bld) [#/Vol] 0.4 10*3/uL 0.0-0.8 [facility] Monocytes/100 WBC Auto (Bld) Ordered By: Brady Rosas on 04-16-2023 Monocytes/100 WBC (Bld) 5.0 % . [facility] Neutrophils Auto (Bld) [#/Vo l]Ordered By: Brady Ralph on 04-16-2023 Neutrophils (Bld) [#/Vol] 5.0 10*3/uL 1.8-7.7 [facility] Neutrophils/100 WBC Auto (Bl d)Ordered By: Brady Rosas on 04-16-2023 Neutrophils/100 WBC (Bld) 64.4 % . [facility] No Panel InformationOrdered By: Brady Rosas on 04-16-2023 Estimated GFR (CKD-EPI) > 60.0 mL/Min [facility] Creatinine Clearance (Chem N/A [facility] Nucleated erythrocytes [Pres ence] in Blood by Automated countOrdered By: Brady Rosas on 04-16-2023 Nucleated RBC Auto Ql (Bld) 0.1 /100{WBC} 0-0.5 [facility] PSA Screen (Yearly Only)on 0 04-16-2023 PSA Screen (Yearly Only) 0.390 ng/mL Normal 0.000-4.000 [facility] Comment on above: Result Comment: PERF ORMED BY: [place] [address] PATHOLOGIST MEAT AND SEAFOOD CLERK STUART SIGALA M.D. Performed By: #### B MP, CBC, PHOS, BNP, HS TROP, MG #### [facility] [address] [place] [address] Parathyrin.intact [Mass/volu me] in Serum or PlasmaOrdered By: Brady Rosas on 04-16-2023 Parathyrin.intact [Mass/Vol] 32.5 pg/mL [facility] Parathyroid Hormone Intacton 04-16-2023 Parathyroid Hormone Intact 32.5 pg/mL Normal [facility] Comment on above: Result Comment: PERF ORMED BY: [place] [address] PATHOLOGIST MEAT AND SEAFOOD CLERK STUART SIGALA M.D. Performed By: #### B MP, CBC, PHOS, BNP, HS TROP, MG #### [facility] [address] [place] [id number] [facility] Phosphate [Mass/volume] in S isiah or PlasmaOrdered By: Brady Rosas on 04-16-2023 Phosphate [Mass/Vol] 3.2 mg/dL 3.7-7.2 [facility] Phosphoruson 04-16-2023 Phosphate [Mass/Vol] 3.2 mg/dL Low 3.7-7.2 [facility] Comment on above: Performed By: #### B MP, CBC, PHOS, BNP, HS TROP, MG #### [facility] [address] [place] [id number] [facility] Platelet mean volume Auto (B ld) [Entitic vol]Ordered By: Brady Rosas on 04-16-2023 Platelet mean volume (Bld) [Entitic vol] 9.7 fL 6.6-10.1 [facility] Platelets Auto (Bld) [#/Vol] Ordered By: Brady Rosas on 04-16-2023 Platelets (Bld) [#/Vol] 217 10*3/uL 150-450 [facility] Potassium [Moles/volume] in Serum or PlasmaOrdered By: Brady Rosas on 04-16-2023 Potassium [Moles/Vol] 4.5 mmol/L 3.5-5.1 [facility] Prostate specific Ag [Mass/v olume] in Serum or PlasmaOrdered By: Brady Rosas on 04-16-2023 Prostate specific Ag [Mass/Vol] 0.390 ng/mL 0.000-4.000 [facility] Protein [Mass/volume] in Ser um or PlasmaOrdered By: Brady Rosas on 04-16-2023 Protein [Mass/Vol] 6.9 g/dL 6.4-8.[address] [facility] RBC Auto (Bld) [#/Vol]Ordere d By: Brady Rosas on 04-16-2023 RBC (Bld) [#/Vol] 5.11 10*6/uL 3.90-5.60 [facility] Serum ionized calcium measur ement using ion specific electrode (mass/volume)Ordered By: Brady Rosas on 04-16-2023 Calcium.ionized ISE [Mass/Vol] See comment . [facility] Comment on above: Test not performed. Deterioration occurred during specimenhandling.contacted your facility on 04-20-2023 Serum or plasma albumin/glob ulin mass ratioOrdered By: Brady Rosas on 04-16-2023 Albumin/Globulin [Mass ratio] 1.9 {ratio} [facility] Serum or plasma anion gap de terminationOrdered By: Brady Rosas on 04-16-2023 Anion gap [Moles/Vol] 7.9 mmol/L 6.0-15.0 [facility] Serum or plasma high density lipoprotein (HDL) cholesterol measurementOrdered By: Brady Rosas on 04-16-2023 Cholesterol in HDL [Mass/Vol] 37 mg/dL 23-92 [facility] Comment on above: HDL CHOL ATP-III CLA SSIFICATION Cardiovascular RiskHDL > or equal to 60 mg/dL LOWHDL < 40 mg/dL HIGH Serum or plasma total choles terol/high density lipoprotein (HDL) cholesterol mass ratOrdered By: Brady Rosas on 04-16-2023 Cholesterol.total/Chol esterol in HDL [Mass ratio] 5.1 {ratio} <5.0 [facility] Sodium [Moles/volume] in Ser um or PlasmaOrdered By: Brady Rosas on 04-16-2023 Sodium [Moles/Vol] 141 mmol/L 136-[address] [facility] Thyroid Stimulating Hormoneo n 04-16-2023 TSH Qn 0.84 m[IU]/L Normal 0.45-5.33 [facility] Comment on above: Performed By: #### B MP, CBC, PHOS, BNP, HS TROP, MG #### [facility] [address] [place] [address] Thyrotropin [Units/volume] i n Serum or PlasmaOrdered By: Brady Rosas on 04-16-2023 TSH Qn 0.84 m[IU]/L 0.45-5.33 [facility] Thyroxine (T4) free [Mass/vo lume] in Serum or PlasmaOrdered By: Brady Rosas on 04-16-2023 Free T4 [Mass/Vol] 0.68 ng/dL 0.61-1.[address] [facility] Triglyceride [Mass/volume] i n Serum or PlasmaOrdered By: Brady Rosas on 04-16-2023 Triglyceride [Mass/Vol] 114 mg/dL 0-149 [facility] Comment on above: TRIG ATP III CLASSIF ICATIONTRIG less than 150 mg/dL NormalTRIG 150-199 mg/dL Borderline highTRIG 200-500 mg/dL High TRIG greater than 500 mg/dL Very highStandard traceable to the Center for Disease Conrtrol and Prevention (CDC) test method. Urea nitrogen [Mass/volume] in Serum or PlasmaOrdered By: Brady Rosas on 04-16-2023 Urea nitrogen [Mass/Vol] 13 mg/dL 7-25 [facility] Urine microalbumin/creatinin e mass ratioOrdered By: Brady Rosas on 04-16-2023 Albumin/Creatinine DL <= 20 mg/L (U) [Mass ratio] TNP [facility] Comment on above: Test not performed Vitamin D 25 Hydroxy Totalon 04-16-2023 Vitamin D 25 Hydroxy Total 34.7 ng/mL Normal 30-100 [facility] Comment on above: Result Comment: ARTUR MIN D STATUS 25(OH)VITAMIN D RANGE (ng/mL) Deficient <20 Insufficient 20 to <30 Sufficient 30 to 100 Reference: Sherrill MF,Cyndi NC, Elvia LOPEZ, et al. Evaluation,treatment, and prevention of vitamin D deficiency; an Endocrine Society clinical practice guideline. JCEM. 2010; 96(7):1911-30. PERFORMED BY: [place] [address] PATHOLOGIST MEAT AND SEAFOOD CLERK STUART SIGALA M.D. Performed By: #### B MP, CBC, PHOS, BNP, HS TROP, MG #### [address] Vitamin D+Metabolites [Mass/ volume] in Serum or PlasmaOrdered By: Brady Rosas on 04-16-2023 Vitamin D+Metabolites [Mass/Vol] 34.7 ng/mL 30-100 [facility] Comment on above: VITAMIN D STATUS 25( OH)VITAMIN D RANGE (ng/mL) Deficient <20 Insufficient 20 to <30Sufficient 30 to 100Reference: Sherrill MF,Cyndi WALLACE, Elvia LOPEZ, et al. Evaluation,treatment, and prevention of vitamin D deficiency; an Endocrine Society clinical practice guideline. JCEM. 2010; 96(7):1911-30. WBC Auto (Bld) [#/Vol]Ordere d By: Brady Rosas on 04-16-2023 WBC (Bld) [#/Vol] 7.8 10*3/uL 4.1-10.[address] [facility] B-Type Natriuretic Peptideon 03-26-2023 Natriuretic peptide B (Bld) [Mass/Vol] 9.0 pg/mL Normal 5-100 [facility] Comment on above: Result Comment: PERF ORMED BY: [place] [address] PATHOLOGIST MEAT AND SEAFOOD CLERK STUART SIGALA M.D. Performed By: #### B MP, CBC, PHOS, BNP, HS TROP, MG #### [address] Basic Metabolic Panelon 03-15 Anion gap [Moles/Vol] 8.6 mmol/L Normal 6.0-15.0 [facility] Comment on above: Performed By: #### B MP, CBC, PHOS, BNP, HS TROP, MG #### [facility] [address] [place] [address] [place] Calcium [Mass/Vol] 9.2 mg/dL Normal 8.6-10.3 [facility] Comment on above: Performed By: #### B MP, CBC, PHOS, BNP, HS TROP, MG #### [place] [address] [place] Chloride [Moles/Vol] 106 mmol/L Normal 98-107 [facility] Comment on above: Performed By: #### B MP, CBC, PHOS, BNP, HS TROP, MG #### [place] [address] [place] CO2 [Moles/Vol] 28.4 mmol/L Normal 21.0-31.0 [facility] Comment on above: Performed By: #### B MP, CBC, PHOS, BNP, HS TROP, MG #### [address] Creatinine [Mass/Vol] 0.98 mg/dL Normal 0.70-1.30 [facility] Comment on above: Performed By: #### B MP, CBC, PHOS, BNP, HS TROP, MG #### [place] [address] [place] Creatinine Clr Calc Pharmacy 107.58 Normal [facility] Comment on above: Performed By: #### B MP, CBC, PHOS, BNP, HS TROP, MG #### [place] [address] [place] GFR/1.73 sq M.predicted MDRD (S/P/Bld) [Vol rate/Area] mL/min/{1.73_m2} Normal [facility] Comment on above: Performed By: #### B MP, CBC, PHOS, BNP, HS TROP, MG #### [address] Glucose [Mass/Vol] 100 mg/dL Normal 70-100 [facility] Comment on above: Result Comment: [place] Glucose Reference Range is dependent on time and content of last meal. Glucose of more than 200 mg/dL in a nonstressed, ambulatory subject supports the diagnosis of Diabetes Mellitus. ADA recommended reference range Performed By: #### B MP, CBC, PHOS, BNP, HS TROP, MG #### [address] Potassium [Moles/Vol] 4.0 mmol/L Normal 3.5-5.1 [facility] Comment on above: Performed By: #### B MP, CBC, PHOS, BNP, HS TROP, MG #### [address] Sodium [Moles/Vol] 139 mmol/L Normal 136-145 [facility] Comment on above: Performed By: #### B MP, CBC, PHOS, BNP, HS TROP, MG #### [facility] [address] Urea nitrogen [Mass/Vol] 17 mg/dL Normal 7-25 [facility] Comment on above: Performed By: #### B MP, CBC, PHOS, BNP, HS TROP, MG #### [facility] [address] Basophils Auto (Bld) [#/Vol] Ordered By: Brady Herbert on 03-26-2023 Basophils (Bld) [#/Vol] 0.1 10*3/uL 0.0-0.2 [facility] Basophils/100 WBC Auto (Bld) Ordered By: Brady Herbert on 03-26-2023 Basophils/100 WBC (Bld) 0.9 % . [facility] Calcium [Mass/volume] in Ser um or PlasmaOrdered By: Brady Herbert on 03-26-2023 Calcium [Mass/Vol] 9.2 mg/dL 8.6-10.[address] [facility] Carbon dioxide, total [Moles /volume] in Serum or PlasmaOrdered By: Brady Herbert on 03-26-2023 CO2 [Moles/Vol] 28.4 mmol/L 21.0-31.0 [facility] Chloride [Moles/volume] in S isiah or PlasmaOrdered By: Brady Herbert on 03-26-2023 Chloride [Moles/Vol] 106 mmol/L 98-107 [facility] Complete Blood Count Auto Di ffon 03-26-2023 Basophils (Bld) [#/Vol] 0.1 10*3/uL Normal 0.0-0.2 [facility] Comment on above: Result Comment: PERF ORMED BY: [facility] [address] [place] [address] PATHOLOGIST MEAT AND SEAFOOD CLERK STUART SIGALA M.D. Performed By: #### B MP, CBC, PHOS, BNP, HS TROP, MG #### [facility] [address] Basophils/100 WBC (Bld) 0.9 % Normal . [facility] Comment on above: Performed By: #### B MP, CBC, PHOS, BNP, HS TROP, MG #### [address] Eosinophils (Bld) [#/Vol] 0.1 10*3/uL Normal 0.0-0.45 [facility] Comment on above: Performed By: #### B MP, CBC, PHOS, BNP, HS TROP, MG #### [address] Eosinophils/100 WBC (Bld) 1.2 % Normal . [facility] Comment on above: Performed By: #### B MP, CBC, PHOS, BNP, HS TROP, MG #### [address] Erythrocyte distribution width (RBC) [Ratio] 13.3 % Normal 12.0-14.8 [facility] Comment on above: Performed By: #### B MP, CBC, PHOS, BNP, HS TROP, MG #### [address] Hematocrit (Bld) [Volume fraction] 46.3 % Normal 38.8-50.0 [facility] Comment on above: Performed By: #### B MP, CBC, PHOS, BNP, HS TROP, MG #### [address] Hemoglobin (Bld) [Mass/Vol] 16.0 g/dL Normal 13.0-17.0 [facility] Comment on above: Performed By: #### B MP, CBC, PHOS, BNP, HS TROP, MG #### [place] [address] [place] Lymphocytes (Bld) [#/Vol] 2.6 10*3/uL Normal 1.00-4.8 [facility] Comment on above: Performed By: #### B MP, CBC, PHOS, BNP, HS TROP, MG #### [place] [address] [place] Lymphocytes/100 WBC (Bld) 26.4 % Normal . [facility] Comment on above: Performed By: #### B MP, CBC, PHOS, BNP, HS TROP, MG #### [address] MCH (RBC) [Entitic mass] 32.4 pg Normal 27.5-35.2 [facility] Comment on above: Performed By: #### B MP, CBC, PHOS, BNP, HS TROP, MG #### [address] MCV (RBC) [Entitic vol] 93.8 fL Normal 83.5-101 [facility] Comment on above: Performed By: #### B MP, CBC, PHOS, BNP, HS TROP, MG #### [address] Mean Corpuscular HGB Conc 34.5 g/dL Normal 32.5-35.6 [facility] Comment on above: Performed By: #### B MP, CBC, PHOS, BNP, HS TROP, MG #### [address] Monocytes (Bld) [#/Vol] 0.6 10*3/uL Normal 0.0-0.8 [facility] Comment on above: Performed By: #### B MP, CBC, PHOS, BNP, HS TROP, MG #### [address] Monocytes/100 WBC (Bld) 17.41 % Normal 0.00-20.00 [facility] Comment on above: Performed By: #### B MP, CBC, PHOS, BNP, HS TROP, MG #### [address] Monocytes/100 WBC (Bld) 6.1 % Normal . [facility] Comment on above: Performed By: #### B MP, CBC, PHOS, BNP, HS TROP, MG #### [address] Neutrophils (Bld) [#/Vol] 6.5 10*3/uL Normal 1.8-7.7 [facility] Comment on above: Performed By: #### B MP, CBC, PHOS, BNP, HS TROP, MG #### [address] Neutrophils/100 WBC (Bld) 65.4 % Normal . [facility] Comment on above: Performed By: #### B MP, CBC, PHOS, BNP, HS TROP, MG #### [address] NRBC% 0.0 /100{WBC} Normal 0-0.5 [facility] Comment on above: Performed By: #### B MP, CBC, PHOS, BNP, HS TROP, MG #### [address] Platelet mean volume (Bld) [Entitic vol] 9.0 fL Normal 6.6-10.1 [facility] Comment on above: Performed By: #### B MP, CBC, PHOS, BNP, HS TROP, MG #### [address] Platelets (Bld) [#/Vol] 220 10*3/uL Normal 150-450 [facility] Comment on above: Performed By: #### B MP, CBC, PHOS, BNP, HS TROP, MG #### [address] RBC (Bld) [#/Vol] 4.94 10*6/uL Normal 3.90-5.60 [facility] Comment on above: Performed By: #### B MP, CBC, PHOS, BNP, HS TROP, MG #### [address] WBC (Bld) [#/Vol] 9.9 10*3/uL Normal 4.1-10.5 [facility] Comment on above: Performed By: #### B MP, CBC, PHOS, BNP, HS TROP, MG #### [address] Creatinine [Mass/volume] in Serum or PlasmaOrdered By: Brady Herbert on 03-26-2023 Creatinine [Mass/Vol] 0.98 mg/dL 0.70-1.30 [facility] ECG 12 lead ECGon 03-26-2023 ECG 12 lead ECG [facility] Main [address] [address] Electrocardiograph Report Signed Patient: Katelynn Burdick MR#: [id number] 1 : 1975 Acct:[id number] Age/Sex: 47 / M ADM Date: 03/26/23 [...] sinus rhythm Confirmed by Brady Herbert DO ([id number]) on 03/26/2023 6:27:27 PM Referred By: Electronically Signed By:Brady Herbert DO Transcribed By: MUS Signed By Brady Herbert DO 182 Normal [facility] Eosinophils Auto (Bld) [#/Vo l]Ordered By: Brady Herbert on 03-26-2023 Eosinophils (Bld) [#/Vol] 0.1 10*3/uL 0.0-0.45 [facility] Eosinophils/100 WBC Auto (Bl d)Ordered By: Brady Herbert on 03-26-2023 Eosinophils/100 WBC (Bld) 1.2 % . [facility] Erythrocyte distribution wid th Auto (RBC) [Ratio]Ordered By: Brady Herbert on 03-26-2023 Erythrocyte distribution width (RBC) [Ratio] 13.3 % 12.0-14.8 [facility] Glucose [Mass/volume] in Ser um or PlasmaOrdered By: Brady Herbert on 03-26-2023 Glucose [Mass/Vol] 100 mg/dL 70-[address] [facility] Comment on above: ADA recommended refe rence rangeRandom Glucose Reference Range is dependent on time and content of last meal. Glucose of more than 200 mg/dL in a nonstressed, ambulatory subject supports the diagnosis of Diabetes Mellitus. Hematocrit Auto (Bld) [Volum e fraction]Ordered By: Brady Herbert on 03-26-2023 Hematocrit (Bld) [Volume fraction] 46.3 % 38.8-50.0 [facility] Hemoglobin [Mass/volume] in BloodOrdered By: Brady Herbert on 03-26-2023 Hemoglobin (Bld) [Mass/Vol] 16.0 g/dL 13.0-17.0 [facility] Leukocytes [#/volume] correc lolis for nucleated erythrocytes in Blood by Automated counOrdered By: Brady Herbert on 03-26-2023 WBC corrected for nucl RBC Auto (Bld) [#/Vol] 9.9 10*3/uL 4.1-10.5 [facility] Lymphocytes Auto (Bld) [#/Vo l]Ordered By: Brady Herbert on 03-26-2023 Lymphocytes (Bld) [#/Vol] 2.6 10*3/uL 1.00-4.8 [facility] Lymphocytes/100 WBC Auto (Bl d)Ordered By: Brady Herbert on 03-26-2023 Lymphocytes/100 WBC (Bld) 26.4 % . [facility] MCH Auto (RBC) [Entitic mass ]Ordered By: Brady Herbert on 03-26-2023 MCH (RBC) [Entitic mass] 32.4 pg 27.5-35.2 [facility] MCHC Auto (RBC) [Mass/Vol]Or dered By: Brady Herbert on 03-26-2023 MCHC (RBC) [Mass/Vol] 34.5 g/dL 32.5-35.6 [facility] MCV Auto (RBC) [Entitic vol] Ordered By: Brady Herbert on 03-26-2023 MCV (RBC) [Entitic vol] 93.8 fL 83.5-101 [facility] Magnesiumon 03-26-2023 Magnesium [Mass/Vol] 2.1 mg/dL Normal 1.9-2.7 [facility] Comment on above: Result Comment: PERF ORMED BY: [facility] [address] [place] [address] PATHOLOGIST MEAT AND SEAFOOD CLERK STUART SIGALA M.D. Performed By: #### B MP, CBC, PHOS, BNP, HS TROP, MG #### [facility] [address] Magnesium [Mass/volume] in S isiah or PlasmaOrdered By: Brady Herbert on 03-26-2023 Magnesium [Mass/Vol] 2.1 mg/dL 1.9-2.7 [facility] Monocyte distribution width [Entitic volume] in Blood by AutomatedOrdered By: Brady Herbret on 03-26-2023 Monocyte distribution width Auto (Bld) [Entitic vol] 17.41 % 0.00-20.00 [facility] Monocytes Auto (Bld) [#/Vol] Ordered By: Brady Herbert on 03-26-2023 Monocytes (Bld) [#/Vol] 0.6 10*3/uL 0.0-0.8 [facility] Monocytes/100 WBC Auto (Bld) Ordered By: Brady Herbert on 03-26-2023 Monocytes/100 WBC (Bld) 6.1 % . [facility] Natriuretic peptide B [Mass/ Vol]Ordered By: Brady Herbert on 03-26-2023 Natriuretic peptide B (Bld) [Mass/Vol] 9.0 pg/mL 5-100 [facility] Neutrophils Auto (Bld) [#/Vo l]Ordered By: Brady Herbert on 03-26-2023 Neutrophils (Bld) [#/Vol] 6.5 10*3/uL 1.8-7.7 [facility] Neutrophils/100 WBC Auto (Bl d)Ordered By: Brady Herbert on 03-26-2023 Neutrophils/100 WBC (Bld) 65.4 % . [facility] No Panel InformationOrdered By: Brady Herbert on 03-26-2023 Estimated GFR (CKD-EPI) > 60.0 mL/Min [facility] Creatinine Clearance (Chem 107.58 [facility] Nucleated erythrocytes [Pres ence] in Blood by Automated countOrdered By: Brady Herbert on 03-26-2023 Nucleated RBC Auto Ql (Bld) 0.0 /100{WBC} 0-0.5 [facility] Phosphate [Mass/volume] in S isiah or PlasmaOrdered By: Brady Herbert on 03-26-2023 Phosphate [Mass/Vol] 3.3 mg/dL 3.7-7.2 [facility] Phosphoruson 03-26-2023 Phosphate [Mass/Vol] 3.3 mg/dL Low 3.7-7.2 [facility] Comment on above: Performed By: #### B MP, CBC, PHOS, BNP, HS TROP, MG #### [address] Platelet mean volume Auto (B ld) [Entitic vol]Ordered By: Brady Herbert on 03-26-2023 Platelet mean volume (Bld) [Entitic vol] 9.0 fL 6.6-10.1 [facility] Platelets Auto (Bld) [#/Vol] Ordered By: Brady Herbert on 03-26-2023 Platelets (Bld) [#/Vol] 220 10*3/uL 150-450 [facility] Potassium [Moles/volume] in Serum or PlasmaOrdered By: Brady Herbert on 03-26-2023 Potassium [Moles/Vol] 4.0 mmol/L 3.5-5.1 [facility] RBC Auto (Bld) [#/Vol]Ordere d By: Brady Herbert on 03-26-2023 RBC (Bld) [#/Vol] 4.94 10*6/uL 3.90-5.60 [facility] Serum or plasma anion gap de terminationOrdered By: Brady Herbert on 03-26-2023 Anion gap [Moles/Vol] 8.6 mmol/L 6.0-15.0 [facility] Sodium [Moles/volume] in Ser um or PlasmaOrdered By: Brady Herbert on 03-26-2023 Sodium [Moles/Vol] 139 mmol/L 136-[address] [facility] Troponin I High Sensitivityo n 03-26-2023 Troponin I High Sensitivity 7.6 pg/mL Normal 0.0-20.0 [facility] Comment on above: Result Comment: PERF ORMED BY: [place] [address] PATHOLOGIST MEAT AND SEAFOOD CLERK STUART SIGALA M.D. Performed By: #### B MP, CBC, PHOS, BNP, HS TROP, MG #### [facility] [address] Troponin I.cardiac [Mass/vol ume] in Serum or Plasma by Detection limit <= 0.01 ng/Ordered By: Brady Herbert on 03-26-2023 Troponin I.cardiac DL <= 0.01 ng/mL [Mass/Vol] 7.6 pg/mL 0.0-20.0 [facility] Urea nitrogen [Mass/volume] in Serum or PlasmaOrdered By: Brady Herbert on 03-26-2023 Urea nitrogen [Mass/Vol] 17 mg/dL 7-25 [facility] WBC Auto (Bld) [#/Vol]Ordere d By: Brady Herbert on 03-26-2023 WBC (Bld) [#/Vol] 9.9 10*3/uL 4.1-10.[address] [facility] XR chest 1V portableon 03-26 XR chest 1V portable [facility] Main [place] [address] [place] [id number] XRay Report Signed Patient: Katelynn Burdick MR#: [id number] 1 : 1975 Acct:[id number] Age/Sex: 47 / M ADM Date: 03/26/23 [...] Alejandra Ivory M.D.03/26/2023 6:27 PM Dictation Location: [place] [address] Transcribed By: [facility] 03/26/231826 Dictated By: Alejandra Ivory MD 03/26/231825 Signed By: 03/26/231826 Normal [facility] CORONAVIRUS 2019 BY PCRon SARS-CoV-2 (COVID-19) RNA ROBBIE+probe Ql (Unsp spec) Detected Abnormal Not Detected [facility] Comment on above: Result Comment: . This [...] this test method. Fact sheet for providers: https://www.fda.gov/media/699934/download Fact sheet for patients: https://www.fda.gov/media/326478/download This test has received FDA Emergency Use Authorization [EUA] and has been verified by [facility] ([facility]). This test is only authorized for the duration of time that circumstances exist to justify the authorization of the emergency use of in vitro diagnostic tests for the detection of SARS-CoV-2 virus and/or diagnosis of COVID-19 infection under section 564(b)(1) of the Act, 21 U.S.C. 360bbb-3(b)(1), unless the authorization is terminated or revoked sooner. [facility] is certified under CLIA-88 as qualified to perform high complexity testing. Testing is performed in the [facility] laboratories located at [address] [place] [address]. Performed By: #### C OV19 #### [place] [address] Covid 19 Resultson 2 SARS-CoV-2 (COVID-19) RNA [...] You may also be contacted by the [facility] to see if any of your [...] or Naproxen (Aleve) can also be used. Mfar-qfw-dixrbbs cough and cold medicines can be used according to the instructions on the package. Some nrqp-mmc-yrdvklj medicines also contain acetaminophen. Make sure you [...] water are not available, use alcohol-based hand cnc programmer. Avoid touching your eyes, nose, and mouth [...] 24 anum (more content not included)... Normal [facility] CORONAVIRUS 2019 BY PCRon Lab Specimen Source Nasal, Nasopharyngeal Normal [facility] Comment on above: Performed By: #### C OV19 #### [facility] [address] [place] [id number] Coronavirus 2019 RNA by PCR, Symptomaticon 03-18-2022 Coronavirus 2019 RNA by PCR, Symptomatic Detected Abnormal See Below [facility] Work Phone: Comment on above: SOURCE: Nasal, [...] this test method. Fact sheet for providers: https://www.fda.gov/media/281423/downloadFact sheet for patients: https://www.fda.gov/media/555536/downloadThis test has received FDA Emergency Use Authorization [EUA] and has been verified by [facility] ([facility]). This test is only authorized for the duration of time that circumstances exist to justify the authorization of the emergency use of in vitro diagnostic tests for the detection of SARS-CoV-2 virus and/or diagnosis of COVID-19 infection under section 564(b)(1) of the Act, 21 U.S.C. 360bbb-3(b)(1), unless the authorization is terminated or revoked sooner. [facility] is certified under CLIA-88 as qualified to perform high complexity testing. Testing is performed in the [facility] laboratories located at [address] [place] [id number]. Office Visit (Urgent Care)on 03-18-2022 Follow-up visit [...] presents for COVID-19 testing. He works for [employer]. He resents with a 1 day history [...] AM Vitals Vital Signs Recorded: 18Mar2022 11:31AM Lwpviydkctv27.1 F, Temporal Heart Rate89 Yavsvnuuyyu03 Respiration QualityNormal Juduujms567, Sitting Vkuksavlj61, Sitting Blood Pressure Cuff SizeAdult Height6 ft 1 in Tdziuf651 lb BMI Ebginnzzqi52.78 kg/m2 BSA Calculated2.17 Tobacco Useb) No Falls Screening (Age 18+)a) No falls within the last year O2 Ghbppmthjc30, RA Pain Scale0 PHQ-9 #1. Little interest [...] Mar 18 2022 12:23PM EST (Author) Normal [facility] Respirationon 03-18-2022 Fall risk assessment a) No falls within the last year [facility] Work Phone: Tobacco use status [facility] b) No [facility] Work Phone: Respiration Normal [facility] Work Phone: Respiration Adult [facility] Work Phone: Respiration 0-Not at all [facility] Work Phone: Vital Signs Date Time Vital Sign Value Performing Clinician Facility 12-08-2023 09:35-0400 Diastolic blood pressure 75 mm[Hg] DO Brady Petznick Work Phone: [facility] 12-08-2023 09:35-0400 Heart rate 63 /min DO Brady Petznick Work Phone: [phone] [place] [address] 12-08-2023 09:35-0400 Respiratory rate 16 /min DO Brady Petznick Work Phone: [phone] [place] [address] 12-08-2023 09:35-0400 SaO2% (BldA) [Mass fraction] 97 % DO Brady Petznick Work Phone: [phone] [place] [address] 12-08-2023 09:35-0400 Systolic blood pressure 110 mm[Hg] DO Brady Petznick Work Phone: [phone] [address] 12-08-2023 07:55-0400 Body height 185.42 cm DO Brady Petznick Work Phone: [phone] [address] 12-08-2023 07:55-0400 Body weight 83.91 kg DO Brady Petznick Work Phone: [phone] [place] [address] 03-26-2023 19:00-0400 Diastolic blood pressure 87 mm[Hg] DO Brady Petznick Work Phone: [facility] 03-26-2023 19:00-0400 Heart rate 72 /min DO Brady Petznick Work Phone: [phone] [place] [address] 03-26-2023 19:00-0400 Respiratory rate 18 /min DO Brady Petznick Work Phone: [phone] [place] [address] 03-26-2023 19:00-0400 SaO2% (BldA) [Mass fraction] 94 % DO Brady Petznick Work Phone: [phone] [place] [address] 03-26-2023 19:00-0400 Systolic blood pressure 121 mm[Hg] DO Brady Petznick Work Phone: [facility] 03-26-2023 17:35-0400 Body height 185.42 cm DO Brady Petznick Work Phone: [facility] 03-26-2023 17:35-0400 Body temperature 98.2 [degF] DO Brady Rosas Work Phone: [facility] 03-26-2023 17:35-0400 Body weight 92.15 kg DO Brady Mongeznick Work Phone: [facility] 03-18-2022 11:31-0400 Body height 185.42 cm Brady Mongeznick Work Phone: [facility] Work Phone: 03-18-2022 11:31-0400 Body mass index (BMI) [Ratio] 26.78 kg/m2 Brady Mongeznick Work Phone: [facility] Work Phone: 03-18-2022 11:31-0400 Body surface area Derived from formula 2.17 m2 Brady Mongeznick Work Phone: [facility] Work Phone: 03-18-2022 11:31-0400 Body temperature 98.1 [degF] Brady Grahamick Work Phone: [facility] Work Phone: 03-18-2022 11:31-0400 Body weight 92.08 kg Brady Mongeznick Work Phone: [facility] Work Phone: 03-18-2022 11:31-0400 Diastolic blood pressure 69 mm[Hg] Brady Mongeznick Work Phone: [facility] Work Phone: 03-18-2022 11:31-0400 Heart rate 89 /min Brady Mongeznick Work Phone: [facility] Work Phone: 03-18-2022 11:31-0400 Respiratory rate 20 /min Brady C Petznick Work Phone: [facility] Work Phone: 03-18-2022 11:31-0400 SaO2% (BldA) [Mass fraction] 98 % Brady Mongeznick Work Phone: [facility] Work Phone: 03-18-2022 11:31-0400 Systolic blood pressure 126 mm[Hg] Brady Grahamick Work Phone: [facility] Work Phone: 03-18-2022 11:31-0400 0 1 Brady Grahamick Work Phone: [facility] Work Phone: Comment on above: [employer] Encounters Encounter Date Encounter Type Care Provider Facility Start: 12-08-2023 End: 12-08-2023 ambulatory Brady Petkieranick Facility:[facility] Start: 12-08-2023 Non-patient / Non-visit DO Brady Petznick Work Phone: [facility] Work Phone: Start: 12-08-2023 End: 12-08-2023 Admission to same day surgery center DO Brady Petznick Work Phone: [facility] Work Phone: Start: 12-08-2023 End: 12-08-2023 ambulatory DO Brady Petznick Work Phone: [facility] Work Phone: Start: 04-30-2023 End: 04-30-2023 ambulatory Brady Petznick Facility:[facility] Start: 04-30-2023 End: 04-30-2023 ambulatory DO Brady Petznick Work Phone: [facility] Work Phone: Start: 04-30-2023 End: 04-30-2023 Patient encounter procedure DO Brady Petznick Work Phone: [facility] [place] Work Phone: Start: 04-23-2023 End: 04-23-2023 ambulatory DO Brady Rosas Work Phone: [facility] Work Phone: Start: 04-23-2023 End: 04-23-2023 Patient encounter procedure DO Brady Rosas Work Phone: [facility] [place] Work Phone: Start: 04-16-2023 End: 04-16-2023 ambulatory Brady Rosas Facility:[facility] Start: 04-16-2023 End: 04-16-2023 Patient encounter procedure DO Brady Rosas Work Phone: [facility] [place] Work Phone: Start: 03-26-2023 End: 03-26-2023 Emergency department patient visit Brady Rosas Facility:[facility] Start: 03-26-2023 End: 03-26-2023 Emergency department patient visit DO Brady Rosas Work Phone: [facility] Work Phone: Start: 03-19-2022 Chart Update Brady Jacob katya Work Phone: [facility] Work Phone: Start: 03-18-2022 Adv care pln [...] Date Care Activity Detail Author Start: 12-08-2023 [facility] Patient Education [facility] Work Phone: Patient referral [facility] Work Phone: Payers Date Payer Category Payer Unknown [id number] 2023 Self-pay 2023 Unknown [id number] 1975 Unknown [id number] Unknown [employer] Unknown [id number] Unknown [id number] Unknown [id number] Unknown [id number] Social History Date Type Detail Facility Start: 03-26-2023 End: 12-08-2023 Tobacco smoking status ORIS Smoker (finding) [facility] Start: 1975 Sex Assigned At Male F [facility] Goals Date Patient Goal Desired Activity /State Procedure note 12-08-2023 Note Date & Type Note Facility 12-08-20[address] Procedure [address] [facility] Evaluation note Note Date & Type Note Facility Evaluation note No assessment information availa ble [facility] Work Phone: History and physical note Note Date & Type Note Facility History and physical note Note Date/Time December 08, 2023 8:4 6am [facility] [address] [place] [address] Gastroenterology H&P Signed Patient: Katelynn Burdick MR#: [id number] : 1975 Acct:[id number] Age/Sex: 48 / M Adm Date: 04/25/2 4 Loc: Room: Type: [facility] Attending Dr: Martin Jacobo MD Copies [...] <Electronically signed by Martin Jacobo MD> 12/08/2346 [facility] Work Phone: History of Present illness Narrative Note Date & Type Note Facility History of Present illness Narrative Patient is a 46-year-old male who presents for COVID-19 testing. He works for [employer]. He resents with a 1 day history [...] section and content) DATE CREATED AUTHOR 03/19/2022 [facility] DATE CREATED AUTHOR AUTHOR'S ORGANIZ ATION 03/20/2022 [facility] DATE CREATED AUTHOR AUTHOR'S ORGANIZ ATION 01/29/2023 [facility] DATE CREATED AUTHOR AUTHOR'S ORGANIZ ATION 12/16/2023 [facility] Care Teams (unrecognized sec [...] BE BASED ON THE PRIMARY CLINICAL RECORDS. [facility]. provides no warranty or guarantee of the accuracy or completeness of information in this document.
--- NOTE | 2024-04-03 09:39 | MR_ITS ---
[address] [address] Patient Name: KATELYNN VANEGAS MRN: [id number] date: 1975 Sex: M Assigned Patient Location: MRI Current Patient Location: MRI Accession/Order Number: [id number] Exam Date: 04/03/2024 09:55 Report Date: 04/03/2024 13:02 At the request of: DAVID AVILEZ Procedure: MR cervical spine wo con EXAM: MRI of the cervical spine without IV contrast. REASON FOR EXAM: Cervical Radiculopathy, Degenerative Disc Disease Cervical COMPARISON: None FINDINGS: No cervical spine fractures, acute malalignment or acute abnormal marrow signal. No spinal canal mass, hematoma or fluid collection. No abnormal cord signal. Mild wedge configuration of the body could be congenital variant versus a chronic compression fracture with minimal height loss. Cervical spine degenerative changes with posterior disc osteophyte complexes at the C2-C3, C3-C4, C4-C5, C5-C6 and C6-C7 levels with a C6-C7 posterior disc extrusion. Small amount of fluid in the right C3-C4 facet joint. Moderate C6-C7 spinal canal stenosis. Diffuse congenital spinal canal stenosis. Mild C2-C3 spinal canal stenosis. Mild to moderate C3-C4, C4-C5 and C5-C6 spinal canal stenoses. Mild left C2-C3 neural foraminal stenosis. Severe right and mild to moderate left C3-C4 neural foraminal stenoses. Mild bilateral C4-C5 neural foraminal stenoses. Moderate right and mild left C5-C6 neural foraminal stenoses. Mild to moderate bilateral C6-C7 neural foraminal stenoses. Remainder unremarkable. MR/MR cervical spine wo con IMPRESSION: 1. No acute cervical spine abnormalities. 2. Moderate C6-C7 spinal canal stenosis. 3. Severe right C3-C4 neural foraminal stenosis. Electronically authenticated by: SUZANNE WATKINS Date: 04/03/2024 13:02
== END 2024-04-03 09:36 | disposition home or self-care (01) ==
LOC: MRI 09:35
PROVIDERS: PCP Family Medicine; Visit Provider Physician Assistant
DX: M54.12 Radiculopathy, cervical region (principal); M50.30 Other cervical disc degeneration, unspecified cervical region
CPT/HCPCS: 72141

== ENCOUNTER 2024-04-26 12:55 | Outpatient (OUT) | payer OTHER, SELFPAY ==
--- NOTE | 2024-04-26 | ECG_ITS ---
[facility] Test Date: 2024-04-26 Pat Name: KATELYNN VANEGAS Department: Room: - Gender: Male Media Producer: : 1975 Requested By: Brady Rosas Order Number: [id number] Reading MD: MARCE KAHN Measurements Intervals [place] Rate: 74 P: 0 WI: 113 QRS: 11 QRSD: 110 T: 57 QT: 389 QTc: 432 Interpretive Statements SINUS RHYTHM WITH SHORT WI INTERVAL No previous ECG available for comparison Electronically Signed On 04-26-2024 22:27:57 EDT by MARCE KAHN
--- NOTE | 2024-04-26 | XR_ITS ---
The [address] [address] Patient Name: KATELYNN VANEGAS MRN: [id number] date: 1975 Sex: M Assigned Patient Location: [facility] Current Patient Location: [facility] Accession/Order Number: [id number] Exam Date: 04/26/2024 13:00 Report Date: 04/28/2024 07:40 At the request of: DOLLY BYRD Procedure: XR cervical spine 2-3V EXAMINATION: XR cervical spine 2-3V HISTORY: CERVICAL SPINE PAIN COMPARISON: XR cervical spine 03/23/2024 FINDINGS: BONES: Straightening of normal lordotic curvature. No fracture, spondylolisthesis, bone lesion. Multilevel mild degenerative facet arthropathy, right greater than left. DISC SPACES: No significant disc height narrowing, subluxation, or endplate abnormality. PARASPINOUS: Negative. No paraspinous abnormality is seen. OTHER: Negative. XR/XR cervical spine 2-3V IMPRESSION: 1. Straightening of normal lordotic curvature; positioning versus muscle spasm. 2. Mild degenerative facet arthropathy at multiple levels on the right. Consider MRI for further evaluation. Electronically authenticated by: BRYCE GARCIA Date: 04/28/2024 07:40
--- OUTSIDE RECORDS SUMMARY | 2024-04-26 13:14 | XMS_ITS | CCD ---
Author Organization [facility] Care Team Providers Care Sewing Line Baler Name Role Phone Dominick Pickens Unavailable Unavailable Unavailable Dr. Ladi Arcos Attending Unavailwesley Pickens, Dr. Dominick Ryder Primary Care Un available Ralph, DO Abreu Primary Care Provider [phone] DO Dominick Herbert Emergency Provider DO Dominick Hester Attending Provider [phone] DO Dominick Pickens Primary Care Provider MD Martin Jacobo Attending Provider Dominick Pickens Primary Care Unavailable Dominick Herbert Admitting Unavailable Dominick Herbert Attending Unavailable Dominick Pickens Primary Care Unavailable Dominick Pickens Attending Unavailable Dominick Pickens Admitting Unavailable Dominick Pickens Primary Care Unavailable Dominick Pickens Attending Unavailable Dominick Pickens Admitting Unavailable Dominick Pickens Primary Care Unavailable Martin Jacobo Admitting Unavailable Martin Jacobo Attending Unavailable DOMINICK PICKENS Attending Unavailable Medications Current Medications Medication Drug [...] Test Name Value Interpretation Reference Range Facility [facility] 12-08-2023 L Specimen: [id number] Received: 12/08/23 Status: [place] [facility] Num: [id number] Spec Type: Surgical Subm Dr: Martin Jacobo MD Tissues: A Colon Biopsy (DESC POLYP) B Colon Biopsy (SIGMOID POLYP) Procedures: HE/4, Gross/Micro L4/2 Age/ Patient Sex Location Account Attending Physician Katelynn Burdick 48/M [id number] Martin Jacobo MD SPEC NUM: [id number] RECD: 12/08/23 STATUS: [facility] NUM: [id number] SRIRAM: 12/08/23- SUBM DR: Martin Jacobo MD ENTERED: 12/08/[address] [facility] [address]: SPEC TYPE: Surgical DEPT: S ORDERED: [...] in B1. Clinical history screening TW Specimen: [id number] Received: 12/08/23 Status: [facility] Num: [id number] Spec Type: Surgical Subm Dr: Martin Jacobo MD Tissues: A Colon Biopsy (DESC POLYP) B Colon Biopsy (SIGMOID POLYP) Procedures: HE/4, Gross/Micro L4/2 Patient: Katelynn Burdick [id number] (Continued) Specimen: [id number] Received: 12/08/23 (Continued) Signed (signature on file) Chin-Darius Oconnor, MD 12/10/23 1313 Specimen: [id number] Received: 12/08/23 Status: [facility] Num: [id number] Spec Type: Surgical Subm Dr: Martin Jacobo MD Tissues: A Colon Biopsy (DESC POLYP) B Colon Biopsy (SIGMOID POLYP) Procedures: , Noelle/Serenity L4/2 Patient: Katelynn Burdick [id number] (Continued) Specimen: Received: 12/08/23 (Continued) CPT Codes 25080B0 Specimen: [id number] Received: 12/08/23 Status: [facility] Num: [id number] Spec Type: Surgical Subm Dr: Martin Jacobo MD Tissues: A Colon Biopsy (DESC POLYP) B Colon Biopsy (SIGMOID POLYP) Procedures: HE/4, Gross/Micro L4/2 Patient: Katelynn Burdick [id number] (Continued) Signed (signature on file) Theresa Oconnor MD 12/10/23 1313 Normal [facility] Alanine aminotransferase [En zymatic activity/volume] in Serum or PlasmaOrdered By: Dominick Pickens on 04-16-2023 ALT [Catalytic activity/Vol] 26 U/L [address] [facility] Albumin [Mass/volume] in Ser um or Plasma by Bromocresol green (BCG) dye binding methoOrdered By: Dominick Pickens on 04-16-2023 Albumin BCG dye [Mass/Vol] 4.5 g/dL 3.5-5.[address] [facility] Alkaline phosphatase [Enzyma tic activity/volume] in Serum or PlasmaOrdered By: Dominick Pickens on 04-16-2023 ALP [Catalytic activity/Vol] 61 U/L 34-[address] [facility] Aspartate aminotransferase [ Enzymatic activity/volume] in Serum or PlasmaOrdered By: Dominick Pickens on 04-16-2023 AST [Catalytic activity/Vol] 18 U/L 13-[address] [facility] Basophils Auto (Bld) [#/Vol] Ordered By: Dominick Pickens on 04-16-2023 Basophils (Bld) [#/Vol] 0.1 10*3/uL 0.0-0.[address] [facility] Basophils/100 WBC Auto (Bld) Ordered By: Dominick Pickens on 04-16-2023 Basophils/100 WBC (Bld) 0.7 % . [facility] Bilirubin.total [Mass/volume ] in Serum or PlasmaOrdered By: Dominick Pickens on 04-16-2023 Bilirubin [Mass/Vol] 0.9 mg/dL 0.3-1.0 [facility] Calcium [Mass/volume] in Ser um or PlasmaOrdered By: Dominick Pickens on 04-16-2023 Calcium [Mass/Vol] 9.4 mg/dL 8.6-10.[address] [facility] Carbon dioxide, total [Moles /volume] in Serum or PlasmaOrdered By: Dominick Pickens on 04-16-2023 CO2 [Moles/Vol] 30.6 mmol/L 21.0-31.0 [facility] Chloride [Moles/volume] in S isiah or PlasmaOrdered By: Dominick Pickens on 04-16-2023 Chloride [Moles/Vol] 107 mmol/L 98-107 [facility] Cholesterol [Mass/volume] in Serum or PlasmaOrdered By: Dominick Pickens on 04-16-2023 Cholesterol [Mass/Vol] 187 mg/dL 140-200 [facility] Comment on above: Chol less than 200 m g/dl low riskChol 201-239 mg/dl borderline riskChol 240 mg/dl and greater high risk Cholesterol in LDL Calc [Mas s/Vol]Ordered By: Dominick Pickens on 04-16-2023 Cholesterol in LDL [Mass/Vol] 127 mg/dL 0-[address] [facility] Comment on above: LDL ATP III CLASSIFI CATIONLDL less than 100 mg/dL OptimalLDL 100-129 mg/dL Near or above optimalLDL 130-159 mg/dL Borderline highLDL 160-189 mg/dL HighLDL greater than 189 mg/dL Very high Cholesterol in VLDL Calc [Ma ss/Vol]Ordered By: Dominick Pickens on 04-16-2023 Cholesterol in VLDL [Mass/Vol] 22 mg/dL [facility] Complete Blood Count Auto Di ffon 04-16-2023 Basophils (Bld) [#/Vol] 0.1 10*3/uL Normal 0.0-0.2 [facility] Comment on above: Result Comment: PERF ORMED BY: [place] [address] PATHOLOGIST ENTRY LEVEL MACHINE OPERATOR STUART SIGALA M.D. Performed By: #### L IPID, PTH, CBC, CMP, PHOS, PSAS, TSH3, T4F, URMACRERAT, [id number], MG #### [facility] [address] [place] [address] #### CAION #### [facility] , Basophils/100 WBC (Bld) 0.7 % Normal . [facility] Comment on above: Performed By: #### L IPID, PTH, CBC, CMP, PHOS, PSAS, TSH3, T4F, URMACRERAT, [id number], MG #### [facility] [address] [place] [address] #### CAION #### [facility] , Eosinophils (Bld) [#/Vol] 0.1 10*3/uL Normal 0.0-0.45 [facility] Comment on above: Performed By: #### L IPID, PTH, CBC, CMP, PHOS, PSAS, TSH3, T4F, URMACRERAT, [id number], MG #### [place] [address] [place] #### CAION #### [facility] , Eosinophils/100 WBC (Bld) 1.4 % Normal . [facility] Comment on above: Performed By: #### L IPID, PTH, CBC, CMP, PHOS, PSAS, TSH3, T4F, URMACRERAT, [id number], MG #### [place] [address] [place] #### CAION #### [facility] , Erythrocyte distribution width (RBC) [Ratio] 13.6 % Normal 12.0-14.8 [facility] Comment on above: Performed By: #### L IPID, PTH, CBC, CMP, PHOS, PSAS, TSH3, T4F, URMACRERAT, [id number], MG #### [place] [address] [place] #### CAION #### [facility] , Hematocrit (Bld) [Volume fraction] 48.6 % Normal 38.8-50.0 [facility] Comment on above: Performed By: #### L IPID, PTH, CBC, CMP, PHOS, PSAS, TSH3, T4F, URMACRERAT, [id number], MG #### [place] [address] [place] #### CAION #### [facility] , Hemoglobin (Bld) [Mass/Vol] 16.7 g/dL Normal 13.0-17.0 [facility] Comment on above: Performed By: #### L IPID, PTH, CBC, CMP, PHOS, PSAS, TSH3, T4F, URMACRERAT, [id number], MG #### [place] [address] [place] #### CAION #### [facility] , Lymphocytes (Bld) [#/Vol] 2.2 10*3/uL Normal 1.00-4.8 [facility] Comment on above: Performed By: #### L IPID, PTH, CBC, CMP, PHOS, PSAS, TSH3, T4F, URMACRERAT, [id number], MG #### [address] #### CAION #### [facility] , Lymphocytes/100 WBC (Bld) 28.5 % Normal . [facility] Comment on above: Performed By: #### L IPID, PTH, CBC, CMP, PHOS, PSAS, TSH3, T4F, URMACRERAT, [id number], MG #### [address] #### CAION #### [facility] , MCH (RBC) [Entitic mass] 32.7 pg Normal 27.5-35.2 [facility] Comment on above: Performed By: #### L IPID, PTH, CBC, CMP, PHOS, PSAS, TSH3, T4F, URMACRERAT, [id number], MG #### [address] #### CAION #### [facility] , MCV (RBC) [Entitic vol] 95.1 fL Normal 83.5-101 [facility] Comment on above: Performed By: #### L IPID, PTH, CBC, CMP, PHOS, PSAS, TSH3, T4F, URMACRERAT, [id number], MG #### [place] [address] [place] #### CAION #### [facility] , Mean Corpuscular HGB Conc 34.4 g/dL Normal 32.5-35.6 [facility] Comment on above: Performed By: #### L IPID, PTH, CBC, CMP, PHOS, PSAS, TSH3, T4F, URMACRERAT, [id number], MG #### [facility] [address] [place] [address] [place] #### CAION #### [facility] , Monocytes (Bld) [#/Vol] 0.4 10*3/uL Normal 0.0-0.8 [facility] Comment on above: Performed By: #### L IPID, PTH, CBC, CMP, PHOS, PSAS, TSH3, T4F, URMACRERAT, [id number], MG #### [place] [address] [place] #### CAION #### [facility] , Monocytes/100 WBC (Bld) 5.0 % Normal . [facility] Comment on above: Performed By: #### L IPID, PTH, CBC, CMP, PHOS, PSAS, TSH3, T4F, URMACRERAT, [id number], MG #### [place] [address] [place] #### CAION #### [facility] , Neutrophils (Bld) [#/Vol] 5.0 10*3/uL Normal 1.8-7.7 [facility] Comment on above: Performed By: #### L IPID, PTH, CBC, CMP, PHOS, PSAS, TSH3, T4F, URMACRERAT, [id number], MG #### [place] [address] [place] #### CAION #### [facility] , Neutrophils/100 WBC (Bld) 64.4 % Normal . [facility] Comment on above: Performed By: #### L IPID, PTH, CBC, CMP, PHOS, PSAS, TSH3, T4F, URMACRERAT, [id number], MG #### [place] [address] [place] #### CAION #### [facility] , NRBC% 0.1 /100{WBC} Normal 0-0.5 [facility] Comment on above: Performed By: #### L IPID, PTH, CBC, CMP, PHOS, PSAS, TSH3, T4F, URMACRERAT, [id number], MG #### [address] #### CAION #### [facility] , Platelet mean volume (Bld) [Entitic vol] 9.7 fL Normal 6.6-10.1 [facility] Comment on above: Performed By: #### L IPID, PTH, CBC, CMP, PHOS, PSAS, TSH3, T4F, URMACRERAT, [id number], MG #### [address] #### CAION #### [facility] , Platelets (Bld) [#/Vol] 217 10*3/uL Normal 150-450 [facility] Comment on above: Performed By: #### L IPID, PTH, CBC, CMP, PHOS, PSAS, TSH3, T4F, URMACRERAT, [id number], MG #### [place] [address] [place] #### CAION #### [facility] , RBC (Bld) [#/Vol] 5.11 10*6/uL Normal 3.90-5.60 [facility] Comment on above: Performed By: #### L IPID, PTH, CBC, CMP, PHOS, PSAS, TSH3, T4F, URMACRERAT, [id number], MG #### [place] [address] [place] #### CAION #### [facility] , WBC (Bld) [#/Vol] 7.8 10*3/uL Normal 4.1-10.5 [facility] Comment on above: Performed By: #### L IPID, PTH, CBC, CMP, PHOS, PSAS, TSH3, T4F, URMACRERAT, [id number], MG #### [address] #### CAION #### [facility] , Comprehensive Metabolic Pane christine 04-16-2023 Albumin [Mass/Vol] 4.5 g/dL Normal 3.5-5.7 [facility] Comment on above: Performed By: #### B MP, CBC, PHOS, BNP, HS TROP, MG #### [address] Albumin/Globulin [Mass ratio] 1.9 {ratio} Normal [facility] Comment on above: Performed By: #### B MP, CBC, PHOS, BNP, HS TROP, MG #### [address] ALP [Catalytic activity/Vol] 61 U/L Normal 34-104 [facility] Comment on above: Performed By: #### B MP, CBC, PHOS, BNP, HS TROP, MG #### [address] ALT [Catalytic activity/Vol] 26 U/L Normal 7-52 [facility] Comment on above: Performed By: #### B MP, CBC, PHOS, BNP, HS TROP, MG #### [address] Anion gap [Moles/Vol] 7.9 mmol/L Normal 6.0-15.0 [facility] Comment on above: Performed By: #### B MP, CBC, PHOS, BNP, HS TROP, MG #### [address] AST [Catalytic activity/Vol] 18 U/L Normal 13-39 [facility] Comment on above: Performed By: #### B MP, CBC, PHOS, BNP, HS TROP, MG #### [address] Bilirubin [Mass/Vol] 0.9 mg/dL Normal 0.3-1.0 [facility] Comment on above: Performed By: #### B MP, CBC, PHOS, BNP, HS TROP, MG #### [address] Calcium [Mass/Vol] 9.4 mg/dL Normal 8.6-10.3 [facility] Comment on above: Performed By: #### B MP, CBC, PHOS, BNP, HS TROP, MG #### [address] Chloride [Moles/Vol] 107 mmol/L Normal 98-107 [facility] Comment on above: Performed By: #### B MP, CBC, PHOS, BNP, HS TROP, MG #### [address] CO2 [Moles/Vol] 30.6 mmol/L Normal 21.0-31.0 [facility] Comment on above: Performed By: #### B MP, CBC, PHOS, BNP, HS TROP, MG #### [address] Creatinine [Mass/Vol] 0.87 mg/dL Normal 0.70-1.30 [facility] Comment on above: Performed By: #### B MP, CBC, PHOS, BNP, HS TROP, MG #### [address] GFR/1.73 sq M.predicted MDRD (S/P/Bld) [Vol rate/Area] mL/min/{1.73_m2} Normal [facility] Comment on above: Performed By: #### B MP, CBC, PHOS, BNP, HS TROP, MG #### [address] Globulin (S) [Mass/Vol] 2.4 g/dL Normal [facility] Comment on above: Performed By: #### B MP, CBC, PHOS, BNP, HS TROP, MG #### [address] Glucose [Mass/Vol] 92 mg/dL Normal 70-100 [facility] Comment on above: Result Comment: Bety hunter Glucose Reference Range is dependent on time and content of last meal. Glucose of more than 200 mg/dL in a nonstressed, ambulatory subject supports the diagnosis of Diabetes Mellitus. ADA recommended reference range Performed By: #### B MP, CBC, PHOS, BNP, HS TROP, MG #### [address] Potassium [Moles/Vol] 4.5 mmol/L Normal 3.5-5.1 [facility] Comment on above: Performed By: #### B MP, CBC, PHOS, BNP, HS TROP, MG #### [address] Protein [Mass/Vol] 6.9 g/dL Normal 6.4-8.9 [facility] Comment on above: Performed By: #### B MP, CBC, PHOS, BNP, HS TROP, MG #### [address] Sodium [Moles/Vol] 141 mmol/L Normal 136-145 [facility] Comment on above: Performed By: #### B MP, CBC, PHOS, BNP, HS TROP, MG #### [address] Urea nitrogen [Mass/Vol] 13 mg/dL Normal 7-25 [facility] Comment on above: Performed By: #### B MP, CBC, PHOS, BNP, HS TROP, MG #### [address] Creatinine [Mass/volume] in Serum or PlasmaOrdered By: Dominick Pickens on 04-16-2023 Creatinine [Mass/Vol] 0.87 mg/dL 0.70-1.30 [facility] Creatinine [Mass/volume] in UrineOrdered By: Dominick Pickens on 04-16-2023 Creatinine (U) [Mass/Vol] 135.0 mg/dL 14.0-26.[address] [facility] Eosinophils Auto (Bld) [#/Vo l]Ordered By: Dominick Pickens on 04-16-2023 Eosinophils (Bld) [#/Vol] 0.1 10*3/uL 0.0-0.[address] [facility] Eosinophils/100 WBC Auto (Bl d)Ordered By: Dominick Pickens on 04-16-2023 Eosinophils/100 WBC (Bld) 1.4 % . [facility] Erythrocyte distribution wid th Auto (RBC) [Ratio]Ordered By: Dominick Pickens on 04-16-2023 Erythrocyte distribution width (RBC) [Ratio] 13.6 % 12.0-14.[address] [facility] Free T4 (Free Thyroxine)on 0 04-16-2023 Free T4 [Mass/Vol] 0.68 ng/dL Normal 0.61-1.12 [facility] Comment on above: Performed By: #### B MP, CBC, PHOS, BNP, HS TROP, MG #### [address] Globulin Calc (S) [Mass/Vol] Ordered By: Dominick Pickens on 04-16-2023 Globulin (S) [Mass/Vol] 2.4 g/dL [facility] Glucose [Mass/volume] in Ser um or PlasmaOrdered By: Dominick Pickens on 04-16-2023 Glucose [Mass/Vol] 92 mg/dL 70-[address] [facility] Comment on above: ADA recommended refe rence rangeRandom Glucose Reference Range is dependent on time and content of last meal. Glucose of more than 200 mg/dL in a nonstressed, ambulatory subject supports the diagnosis of Diabetes Mellitus. Hematocrit Auto (Bld) [Volum e fraction]Ordered By: Dominick Pickens on 04-16-2023 Hematocrit (Bld) [Volume fraction] 48.6 % 38.8-50.[address] [facility] Hemoglobin [Mass/volume] in BloodOrdered By: Dominick Pickens on 04-16-2023 Hemoglobin (Bld) [Mass/Vol] 16.7 g/dL 13.0-17.[address] [facility] Ionized Calciumon 04-16-2023 Ionized Calcium Normal . [facility] Comment on above: Result Comment: Test not performed. Deterioration occurred during specimen handling. contacted your facility on 04-20-2023 PERFORMED BY: [place] [address] PATHOLOGIST ENTRY LEVEL MACHINE OPERATOR STUART SIGALA M.D. Performed By: #### B MP, CBC, PHOS, BNP, HS TROP, MG #### [address] Leukocytes [#/volume] correc lolis for nucleated erythrocytes in Blood by Automated counOrdered By: Dominick Pickens on 04-16-2023 WBC corrected for nucl RBC Auto (Bld) [#/Vol] 7.8 10*3/uL 4.1-10.[address] [facility] Lipid Panelon 04-16-2023 Cholesterol [Mass/Vol] 187 mg/dL Normal 140-200 [facility] Comment on above: Result Comment: Chol less than 200 mg/dl low risk Chol 201-239 mg/dl borderline risk Chol 240 mg/dl and greater high risk Performed By: #### B MP, CBC, PHOS, BNP, HS TROP, MG #### [address] Cholesterol in HDL [Mass/Vol] 37 mg/dL Normal 23-92 [facility] Comment on above: Result Comment: HDL CHOL ATP-III CLASSIFICATION Cardiovascular Risk HDL > or equal to 60 mg/dL LOW HDL < 40 mg/dL HIGH Performed By: #### B MP, CBC, PHOS, BNP, HS TROP, MG #### [address] Cholesterol.total/Chol esterol in HDL [Mass ratio] 5.1 {ratio} Normal <5.0 [facility] Comment on above: Performed By: #### B MP, CBC, PHOS, BNP, HS TROP, MG #### [address] LDL Cholesterol,Calculated 127 mg/dL High 0-100 [facility] Comment on above: Result Comment: LDL ATP III CLASSIFICATION LDL less than 100 mg/dL Optimal LDL 100-129 mg/dL Near or above optimal LDL 130-159 mg/dL Borderline high LDL 160-189 mg/dL High LDL greater than 189 mg/dL Very high Performed By: #### B MP, CBC, PHOS, BNP, HS TROP, MG #### [facility] [address] Triglyceride w/Reflex 114 mg/dL Normal 0-149 [facility] Comment on above: Result Comment: TRIG ATP III CLASSIFICATION TRIG less than 150 mg/dL Normal TRIG 150-199 mg/dL Borderline high TRIG 200-500 mg/dL High TRIG greater than 500 mg/dL Very high Standard traceable to the Center for Disease Conrtrol and Prevention (CDC) test method. Performed By: #### B MP, CBC, PHOS, BNP, HS TROP, MG #### [facility] [address] VLDL CHOLESTEROL 22 mg/dL Normal [facility] Comment on above: Performed By: #### B MP, CBC, PHOS, BNP, HS TROP, MG #### [facility] [address] Lymphocytes Auto (Bld) [#/Vo l]Ordered By: Dominick Pickens on 04-16-2023 Lymphocytes (Bld) [#/Vol] 2.2 10*3/uL 1.00-4.[address] [facility] Lymphocytes/100 WBC Auto (Bl d)Ordered By: Dominick Pickens on 04-16-2023 Lymphocytes/100 WBC (Bld) 28.5 % . [facility] MCH Auto (RBC) [Entitic mass ]Ordered By: Dominick Pickens on 04-16-2023 MCH (RBC) [Entitic mass] 32.7 pg 27.5-35.[address] [facility] MCHC Auto (RBC) [Mass/Vol]Or dered By: Dominick Pickens on 04-16-2023 MCHC (RBC) [Mass/Vol] 34.4 g/dL 32.5-35.6 [facility] MCV Auto (RBC) [Entitic vol] Ordered By: Dominick Pickens on 04-16-2023 MCV (RBC) [Entitic vol] 95.1 fL 83.5-[address] [facility] Magnesiumon 04-16-2023 Magnesium [Mass/Vol] 2.1 mg/dL Normal 1.9-2.7 [facility] Comment on above: Performed By: #### B MP, CBC, PHOS, BNP, HS TROP, MG #### [address] Magnesium [Mass/volume] in S isiah or PlasmaOrdered By: Dominick Pickens on 04-16-2023 Magnesium [Mass/Vol] 2.1 mg/dL 1.9-2.7 [facility] MicroAlb Creat Ratio,Uon Albumin DL <= 20 mg/L (U) [Mass/Vol] mg/dL Normal 0.0-1.8 [facility] Comment on above: Performed By: #### B MP, CBC, PHOS, BNP, HS TROP, MG #### [address] Creatinine, Urine (Random) 135.0 mg/dL High 14.0-26.0 [facility] Comment on above: Performed By: #### B MP, CBC, PHOS, BNP, HS TROP, MG #### [address] Microalbumin/Creatinin e Ratio Not performed Normal 0.0-30.0 [facility] Comment on above: Result Comment: PERF ORMED BY: [place] [address] PATHOLOGIST ENTRY LEVEL MACHINE OPERATOR STUART SIGALA M.D. Performed By: #### B MP, CBC, PHOS, BNP, HS TROP, MG #### [address] Microalbumin [Mass/volume] i n UrineOrdered By: Dominick Pickens on 04-16-2023 Albumin DL <= 20 mg/L (U) [Mass/Vol] mg/dL 0.0-1.[address] [facility] Monocytes Auto (Bld) [#/Vol] Ordered By: Dominick Pickens on 04-16-2023 Monocytes (Bld) [#/Vol] 0.4 10*3/uL 0.0-0.[address] [facility] Monocytes/100 WBC Auto (Bld) Ordered By: Dominick Pickens on 04-16-2023 Monocytes/100 WBC (Bld) 5.0 % . [facility] Neutrophils Auto (Bld) [#/Vo l]Ordered By: Dominick Ralph on 04-16-2023 Neutrophils (Bld) [#/Vol] 5.0 10*3/uL 1.8-7.[address] [facility] Neutrophils/100 WBC Auto (Bl d)Ordered By: Dominick Pickens on 04-16-2023 Neutrophils/100 WBC (Bld) 64.4 % . [facility] No Panel InformationOrdered By: Dominick Pickens on 04-16-2023 Estimated GFR (CKD-EPI) > 60.0 mL/Min [facility] Creatinine Clearance (Chem N/A [facility] Nucleated erythrocytes [Pres ence] in Blood by Automated countOrdered By: Dominick Pickens on 04-16-2023 Nucleated RBC Auto Ql (Bld) 0.1 /100{WBC} 0-0.[address] [facility] PSA Screen (Yearly Only)on 0 04-16-2023 PSA Screen (Yearly Only) 0.390 ng/mL Normal 0.000-4.000 [facility] Comment on above: Result Comment: PERF ORMED BY: [place] [address] PATHOLOGIST ENTRY LEVEL MACHINE OPERATOR STUART SIGALA M.D. Performed By: #### B MP, CBC, PHOS, BNP, HS TROP, MG #### [address] Parathyrin.intact [Mass/volu me] in Serum or PlasmaOrdered By: Dominick Pickens on 04-16-2023 Parathyrin.intact [Mass/Vol] 32.5 pg/mL [facility] Parathyroid Hormone Intacton 04-16-2023 Parathyroid Hormone Intact 32.5 pg/mL Normal [facility] Comment on above: Result Comment: PERF ORMED BY: [place] [address] PATHOLOGIST ENTRY LEVEL MACHINE OPERATOR STUART SIGALA M.D. Performed By: #### B MP, CBC, PHOS, BNP, HS TROP, MG #### [facility] [address] [place] [id number] [facility] Phosphate [Mass/volume] in S isiah or PlasmaOrdered By: Dominick Pickens on 04-16-2023 Phosphate [Mass/Vol] 3.2 mg/dL 3.7-7.2 [facility] Phosphoruson 04-16-2023 Phosphate [Mass/Vol] 3.2 mg/dL Low 3.7-7.2 [facility] Comment on above: Performed By: #### B MP, CBC, PHOS, BNP, HS TROP, MG #### [facility] [address] [place] [id number] [facility] Platelet mean volume Auto (B ld) [Entitic vol]Ordered By: Dominick Pickens on 04-16-2023 Platelet mean volume (Bld) [Entitic vol] 9.7 fL 6.6-10.[address] [facility] Platelets Auto (Bld) [#/Vol] Ordered By: Dominick Pickens on 04-16-2023 Platelets (Bld) [#/Vol] 217 10*3/uL 150-[address] [facility] Potassium [Moles/volume] in Serum or PlasmaOrdered By: Dominick Pickens on 04-16-2023 Potassium [Moles/Vol] 4.5 mmol/L 3.5-5.1 [facility] Prostate specific Ag [Mass/v olume] in Serum or PlasmaOrdered By: Dominick Pickens on 04-16-2023 Prostate specific Ag [Mass/Vol] 0.390 ng/mL 0.000-4.[address] [facility] Protein [Mass/volume] in Ser um or PlasmaOrdered By: Dominick Pickens on 04-16-2023 Protein [Mass/Vol] 6.9 g/dL 6.4-8.[address] [facility] RBC Auto (Bld) [#/Vol]Ordere d By: Dominick Pickens on 04-16-2023 RBC (Bld) [#/Vol] 5.11 10*6/uL 3.90-5.60 [facility] Serum ionized calcium measur ement using ion specific electrode (mass/volume)Ordered By: Dominick Pickens on 04-16-2023 Calcium.ionized ISE [Mass/Vol] See comment . [facility] Comment on above: Test not performed. Deterioration occurred during specimenhandling.contacted your facility on 04-20-2023 Serum or plasma albumin/glob ulin mass ratioOrdered By: Dominick Pickens on 04-16-2023 Albumin/Globulin [Mass ratio] 1.9 {ratio} [facility] Serum or plasma anion gap de terminationOrdered By: Dominick Pickens on 04-16-2023 Anion gap [Moles/Vol] 7.9 mmol/L 6.0-15.0 [facility] Serum or plasma high density lipoprotein (HDL) cholesterol measurementOrdered By: Dominick Pickens on 04-16-2023 Cholesterol in HDL [Mass/Vol] 37 mg/dL 23-[address] [facility] Comment on above: HDL CHOL ATP-III CLA SSIFICATION Cardiovascular RiskHDL > or equal to 60 mg/dL LOWHDL < 40 mg/dL HIGH Serum or plasma total choles terol/high density lipoprotein (HDL) cholesterol mass ratOrdered By: Dominick Pickens on 04-16-2023 Cholesterol.total/Chol esterol in HDL [Mass ratio] 5.1 {ratio} <5.[address] [facility] Sodium [Moles/volume] in Ser um or PlasmaOrdered By: Dominick Pickens on 04-16-2023 Sodium [Moles/Vol] 141 mmol/L 136-[address] [facility] Thyroid Stimulating Hormoneo n 04-16-2023 TSH Qn 0.84 m[IU]/L Normal 0.45-5.33 [facility] Comment on above: Performed By: #### B MP, CBC, PHOS, BNP, HS TROP, MG #### [address] Thyrotropin [Units/volume] i n Serum or PlasmaOrdered By: Dominick Pickens on 04-16-2023 TSH Qn 0.84 m[IU]/L 0.45-5.[address] [facility] Thyroxine (T4) free [Mass/vo lume] in Serum or PlasmaOrdered By: Dominick Pickens on 04-16-2023 Free T4 [Mass/Vol] 0.68 ng/dL 0.61-1.[address] [facility] Triglyceride [Mass/volume] i n Serum or PlasmaOrdered By: Dominick Pickens on 04-16-2023 Triglyceride [Mass/Vol] 114 mg/dL 0-[address] [facility] Comment on above: TRIG ATP III CLASSIF ICATIONTRIG less than 150 mg/dL NormalTRIG 150-199 mg/dL Borderline highTRIG 200-500 mg/dL High TRIG greater than 500 mg/dL Very highStandard traceable to the Center for Disease Conrtrol and Prevention (CDC) test method. Urea nitrogen [Mass/volume] in Serum or PlasmaOrdered By: Dominick Pickens on 04-16-2023 Urea nitrogen [Mass/Vol] 13 mg/dL 7-[address] [facility] Urine microalbumin/creatinin e mass ratioOrdered By: Dominick Pickens on 04-16-2023 Albumin/Creatinine DL <= 20 mg/L (U) [Mass ratio] TNP [facility] Comment on above: Test not performed Vitamin D 25 Hydroxy Totalon 04-16-2023 Vitamin D 25 Hydroxy Total 34.7 ng/mL Normal 30-100 [facility] Comment on above: Result Comment: ARTUR MIN D STATUS 25(OH)VITAMIN D RANGE (ng/mL) Deficient <20 Insufficient 20 to <30 Sufficient 30 to 100 Reference: Sherrill MF,Cyndi NC, Elvia LOPEZ, et al. Evaluation,treatment, and prevention of vitamin D deficiency; an Endocrine Society clinical practice guideline. JCEM. 2010; 96(7):1911-30. PERFORMED BY: [facility] [address] [place] [address] PATHOLOGIST ENTRY LEVEL MACHINE OPERATOR STUART SIGALA M.D. Performed By: #### B MP, CBC, PHOS, BNP, HS TROP, MG #### [facility] [address] Vitamin D+Metabolites [Mass/ volume] in Serum or PlasmaOrdered By: Dominick Pickens on 04-16-2023 Vitamin D+Metabolites [Mass/Vol] 34.7 ng/mL 30-[address] [facility] Comment on above: VITAMIN D STATUS 25( [place])VITAMIN D RANGE (ng/mL) Deficient <20 Insufficient 20 to <30Sufficient 30 to 100Reference: Sherrill LONDON,Cyndi WALLACE, Elvia LOPEZ, et al. Evaluation,treatment, and prevention of vitamin D deficiency; an Endocrine Society clinical practice guideline. JCEM. 2010; 96(7):1911-30. WBC Auto (Bld) [#/Vol]Ordere d By: Dominick Pickens on 04-16-2023 WBC (Bld) [#/Vol] 7.8 10*3/uL 4.1-10.[address] [facility] B-Type Natriuretic Peptideon 03-26-2023 Natriuretic peptide B (Bld) [Mass/Vol] 9.0 pg/mL Normal 5-100 [facility] Comment on above: Result Comment: PERF ORMED BY: [place] [address] PATHOLOGIST ENTRY LEVEL MACHINE OPERATOR STUART SIGALA M.D. Performed By: #### B MP, CBC, PHOS, BNP, HS TROP, MG #### [address] Basic Metabolic Panelon 03-15 Anion gap [Moles/Vol] 8.6 mmol/L Normal 6.0-15.0 [facility] Comment on above: Performed By: #### B MP, CBC, PHOS, BNP, HS TROP, MG #### [address] Calcium [Mass/Vol] 9.2 mg/dL Normal 8.6-10.3 [facility] Comment on above: Performed By: #### B MP, CBC, PHOS, BNP, HS TROP, MG #### [address] Chloride [Moles/Vol] 106 mmol/L Normal 98-107 [facility] Comment on above: Performed By: #### B MP, CBC, PHOS, BNP, HS TROP, MG #### [address] [place] [address] [place] CO2 [Moles/Vol] 28.4 mmol/L Normal 21.0-31.0 [facility] Comment on above: Performed By: #### B MP, CBC, PHOS, BNP, HS TROP, MG #### [facility] [address] Creatinine [Mass/Vol] 0.98 mg/dL Normal 0.70-1.30 [facility] Comment on above: Performed By: #### B MP, CBC, PHOS, BNP, HS TROP, MG #### [place] [address] [place] Creatinine Clr Calc Pharmacy 107.58 Normal [facility] Comment on above: Performed By: #### B MP, CBC, PHOS, BNP, HS TROP, MG #### [place] [address] [place] GFR/1.73 sq M.predicted MDRD (S/P/Bld) [Vol rate/Area] mL/min/{1.73_m2} Normal [facility] Comment on above: Performed By: #### B MP, CBC, PHOS, BNP, HS TROP, MG #### [address] Glucose [Mass/Vol] 100 mg/dL Normal 70-100 [facility] Comment on above: Result Comment: [place] Glucose Reference Range is dependent on time and content of last meal. Glucose of more than 200 mg/dL in a nonstressed, ambulatory subject supports the diagnosis of Diabetes Mellitus. ADA recommended reference range Performed By: #### B MP, CBC, PHOS, BNP, HS TROP, MG #### [address] Potassium [Moles/Vol] 4.0 mmol/L Normal 3.5-5.1 [facility] Comment on above: Performed By: #### B MP, CBC, PHOS, BNP, HS TROP, MG #### [place] [address] [place] Sodium [Moles/Vol] 139 mmol/L Normal 136-145 [facility] Comment on above: Performed By: #### B MP, CBC, PHOS, BNP, HS TROP, MG #### [facility] [address] Urea nitrogen [Mass/Vol] 17 mg/dL Normal 7-25 [facility] Comment on above: Performed By: #### B MP, CBC, PHOS, BNP, HS TROP, MG #### [facility] [address] Basophils Auto (Bld) [#/Vol] Ordered By: Dominick Herbert on 03-26-2023 Basophils (Bld) [#/Vol] 0.1 10*3/uL 0.0-0.[address] [facility] Basophils/100 WBC Auto (Bld) Ordered By: Dominick Herbert on 03-26-2023 Basophils/100 WBC (Bld) 0.9 % . [facility] Calcium [Mass/volume] in Ser um or PlasmaOrdered By: Dominick Herbert on 03-26-2023 Calcium [Mass/Vol] 9.2 mg/dL 8.6-10.[address] [facility] Carbon dioxide, total [Moles /volume] in Serum or PlasmaOrdered By: Dominick Herbert on 03-26-2023 CO2 [Moles/Vol] 28.4 mmol/L 21.0-31.0 [facility] Chloride [Moles/volume] in S isiah or PlasmaOrdered By: Dominick Herbert on 03-26-2023 Chloride [Moles/Vol] 106 mmol/L 98-107 [facility] Complete Blood Count Auto Di ffon 03-26-2023 Basophils (Bld) [#/Vol] 0.1 10*3/uL Normal 0.0-0.2 [facility] Comment on above: Result Comment: PERF ORMED BY: [place] [address] PATHOLOGIST ENTRY LEVEL MACHINE OPERATOR STUART SIGALA M.D. Performed By: #### B MP, CBC, PHOS, BNP, HS TROP, MG #### [address] [place] [address] [place] Basophils/100 WBC (Bld) 0.9 % Normal . [facility] Comment on above: Performed By: #### B MP, CBC, PHOS, BNP, HS TROP, MG #### [address] Eosinophils (Bld) [#/Vol] 0.1 10*3/uL Normal 0.0-0.45 [facility] Comment on above: Performed By: #### B MP, CBC, PHOS, BNP, HS TROP, MG #### [address] Eosinophils/100 WBC (Bld) 1.2 % Normal . [facility] Comment on above: Performed By: #### B MP, CBC, PHOS, BNP, HS TROP, MG #### [address] Erythrocyte distribution width (RBC) [Ratio] 13.3 % Normal 12.0-14.8 [facility] Comment on above: Performed By: #### B MP, CBC, PHOS, BNP, HS TROP, MG #### [address] Hematocrit (Bld) [Volume fraction] 46.3 % Normal 38.8-50.0 [facility] Comment on above: Performed By: #### B MP, CBC, PHOS, BNP, HS TROP, MG #### [address] Hemoglobin (Bld) [Mass/Vol] 16.0 g/dL Normal 13.0-17.0 [facility] Comment on above: Performed By: #### B MP, CBC, PHOS, BNP, HS TROP, MG #### [address] Lymphocytes (Bld) [#/Vol] 2.6 10*3/uL Normal 1.00-4.8 [facility] Comment on above: Performed By: #### B MP, CBC, PHOS, BNP, HS TROP, MG #### [address] Lymphocytes/100 WBC (Bld) 26.4 % Normal . [facility] Comment on above: Performed By: #### B MP, CBC, PHOS, BNP, HS TROP, MG #### [address] MCH (RBC) [Entitic mass] 32.4 pg Normal 27.5-35.2 [facility] Comment on above: Performed By: #### B MP, CBC, PHOS, BNP, HS TROP, MG #### [address] MCV (RBC) [Entitic vol] 93.8 fL Normal 83.5-101 [facility] Comment on above: Performed By: #### B MP, CBC, PHOS, BNP, HS TROP, MG #### [address] Mean Corpuscular HGB Conc 34.5 g/dL Normal 32.5-35.6 [facility] Comment on above: Performed By: #### B MP, CBC, PHOS, BNP, HS TROP, MG #### [address] Monocytes (Bld) [#/Vol] 0.6 10*3/uL Normal 0.0-0.8 [facility] Comment on above: Performed By: #### B MP, CBC, PHOS, BNP, HS TROP, MG #### [address] Monocytes/100 WBC (Bld) 17.41 % Normal 0.00-20.00 [facility] Comment on above: Performed By: #### B MP, CBC, PHOS, BNP, HS TROP, MG #### [address] Monocytes/100 WBC (Bld) 6.1 % Normal . [facility] Comment on above: Performed By: #### B MP, CBC, PHOS, BNP, HS TROP, MG #### [address] Neutrophils (Bld) [#/Vol] 6.5 10*3/uL Normal 1.8-7.7 [facility] Comment on above: Performed By: #### B MP, CBC, PHOS, BNP, HS TROP, MG #### [address] Neutrophils/100 WBC (Bld) 65.4 % Normal . [facility] Comment on above: Performed By: #### B MP, CBC, PHOS, BNP, HS TROP, MG #### [address] NRBC% 0.0 /100{WBC} Normal 0-0.5 [facility] Comment on above: Performed By: #### B MP, CBC, PHOS, BNP, HS TROP, MG #### [address] Platelet mean volume (Bld) [Entitic vol] 9.0 fL Normal 6.6-10.1 [facility] Comment on above: Performed By: #### B MP, CBC, PHOS, BNP, HS TROP, MG #### [address] Platelets (Bld) [#/Vol] 220 10*3/uL Normal 150-450 [facility] Comment on above: Performed By: #### B MP, CBC, PHOS, BNP, HS TROP, MG #### [address] RBC (Bld) [#/Vol] 4.94 10*6/uL Normal 3.90-5.60 [facility] Comment on above: Performed By: #### B MP, CBC, PHOS, BNP, HS TROP, MG #### [place] [address] [place] WBC (Bld) [#/Vol] 9.9 10*3/uL Normal 4.1-10.5 [facility] Comment on above: Performed By: #### B MP, CBC, PHOS, BNP, HS TROP, MG #### [address] [place] [address] [facility] Creatinine [Mass/volume] in Serum or PlasmaOrdered By: Dominick Herbert on 03-26-2023 Creatinine [Mass/Vol] 0.98 mg/dL 0.70-1.30 [facility] ECG 12 lead ECGon 03-26-2023 ECG 12 lead ECG [facility] [address] [place] [address] [place] [address] Electrocardiograph Report Signed Patient: Katelynn Burdick MR#: [id number] 1 : 1975 Acct:[id number] Age/Sex: 47 / M ADM Date: 03/26/23 Loc: ER Room: Type: PRE ER Attending Dr: Ordering Provider: Dominick Herbert DO Date of Service: 03/26/2308/06/1728 ECG/ECG [...] 440 ms Normal sinus rhythm Confirmed by Dominikc Herbert DO ([id number]) on 03/26/2023 6:27:27 PM Referred By: Electronically Signed By:Dominick Herbert DO Transcribed By: MUS Signed By Dominick Herbert DO 1827 Normal [facility] Eosinophils Auto (Bld) [#/Vo l]Ordered By: Dominick Herbert on 03-26-2023 Eosinophils (Bld) [#/Vol] 0.1 10*3/uL 0.0-0.[address] [facility] Eosinophils/100 WBC Auto (Bl d)Ordered By: Dominick Herbert on 03-26-2023 Eosinophils/100 WBC (Bld) 1.2 % . [facility] Erythrocyte distribution wid th Auto (RBC) [Ratio]Ordered By: Dominick Herbert on 03-26-2023 Erythrocyte distribution width (RBC) [Ratio] 13.3 % 12.0-14.[address] [facility] Glucose [Mass/volume] in Ser um or PlasmaOrdered By: Dominick Herbert on 03-26-2023 Glucose [Mass/Vol] 100 mg/dL 70-[address] [facility] Comment on above: ADA recommended refe rence rangeRandom Glucose Reference Range is dependent on time and content of last meal. Glucose of more than 200 mg/dL in a nonstressed, ambulatory subject supports the diagnosis of Diabetes Mellitus. Hematocrit Auto (Bld) [Volum e fraction]Ordered By: Dominick Herbert on 03-26-2023 Hematocrit (Bld) [Volume fraction] 46.3 % 38.8-50.[address] [facility] Hemoglobin [Mass/volume] in BloodOrdered By: Dominick Herbert on 03-26-2023 Hemoglobin (Bld) [Mass/Vol] 16.0 g/dL 13.0-17.[address] [facility] Leukocytes [#/volume] correc lolis for nucleated erythrocytes in Blood by Automated counOrdered By: Dominick Herbert on 03-26-2023 WBC corrected for nucl RBC Auto (Bld) [#/Vol] 9.9 10*3/uL 4.1-10.[address] [facility] Lymphocytes Auto (Bld) [#/Vo l]Ordered By: Dominick Herbert on 03-26-2023 Lymphocytes (Bld) [#/Vol] 2.6 10*3/uL 1.00-4.[address] [facility] Lymphocytes/100 WBC Auto (Bl d)Ordered By: Dominick Herbert on 03-26-2023 Lymphocytes/100 WBC (Bld) 26.4 % . [facility] MCH Auto (RBC) [Entitic mass ]Ordered By: Dominick Herbert on 03-26-2023 MCH (RBC) [Entitic mass] 32.4 pg 27.5-35.[address] [facility] MCHC Auto (RBC) [Mass/Vol]Or dered By: Dominick Herbert on 03-26-2023 MCHC (RBC) [Mass/Vol] 34.5 g/dL 32.5-35.6 [facility] MCV Auto (RBC) [Entitic vol] Ordered By: Dominick Herbert on 03-26-2023 MCV (RBC) [Entitic vol] 93.8 fL 83.5-[address] [facility] Magnesiumon 03-26-2023 Magnesium [Mass/Vol] 2.1 mg/dL Normal 1.9-2.7 [facility] Comment on above: Result Comment: PERF ORMED BY: [facility] [address] [place] [address] PATHOLOGIST ENTRY LEVEL MACHINE OPERATOR STUART SIGALA M.D. Performed By: #### B MP, CBC, PHOS, BNP, HS TROP, MG #### [facility] [address] Magnesium [Mass/volume] in S isiah or PlasmaOrdered By: Dominick Herbert on 03-26-2023 Magnesium [Mass/Vol] 2.1 mg/dL 1.9-2.7 [facility] Monocyte distribution width [Entitic volume] in Blood by AutomatedOrdered By: Dominick Herbert on 03-26-2023 Monocyte distribution width Auto (Bld) [Entitic vol] 17.41 % 0.00-20.[address] [facility] Monocytes Auto (Bld) [#/Vol] Ordered By: Dominick Herbert on 03-26-2023 Monocytes (Bld) [#/Vol] 0.6 10*3/uL 0.0-0.[address] [facility] Monocytes/100 WBC Auto (Bld) Ordered By: Dominick Herbert on 03-26-2023 Monocytes/100 WBC (Bld) 6.1 % . [facility] Natriuretic peptide B [Mass/ Vol]Ordered By: Dominick Herbert on 03-26-2023 Natriuretic peptide B (Bld) [Mass/Vol] 9.0 pg/mL 5-[address] [facility] Neutrophils Auto (Bld) [#/Vo l]Ordered By: Dominick Herbert on 03-26-2023 Neutrophils (Bld) [#/Vol] 6.5 10*3/uL 1.8-7.[address] [facility] Neutrophils/100 WBC Auto (Bl d)Ordered By: Dominick Herbert on 03-26-2023 Neutrophils/100 WBC (Bld) 65.4 % . [facility] No Panel InformationOrdered By: Dominick Herbert on 03-26-2023 Estimated GFR (CKD-EPI) > 60.0 mL/Min [facility] Creatinine Clearance (Chem 107.[address] [facility] Nucleated erythrocytes [Pres ence] in Blood by Automated countOrdered By: Dominick Herbert on 03-26-2023 Nucleated RBC Auto Ql (Bld) 0.0 /100{WBC} 0-0.[address] [facility] Phosphate [Mass/volume] in S isiah or PlasmaOrdered By: Dominick Herbert on 03-26-2023 Phosphate [Mass/Vol] 3.3 mg/dL 3.7-7.2 [facility] Phosphoruson 03-26-2023 Phosphate [Mass/Vol] 3.3 mg/dL Low 3.7-7.2 [facility] Comment on above: Performed By: #### B MP, CBC, PHOS, BNP, HS TROP, MG #### [facility] [address] Platelet mean volume Auto (B ld) [Entitic vol]Ordered By: Dominick Herbert on 03-26-2023 Platelet mean volume (Bld) [Entitic vol] 9.0 fL 6.6-10.[address] [facility] Platelets Auto (Bld) [#/Vol] Ordered By: Dominick Herbert on 03-26-2023 Platelets (Bld) [#/Vol] 220 10*3/uL 150-[address] [facility] Potassium [Moles/volume] in Serum or PlasmaOrdered By: Dominick Herbert on 03-26-2023 Potassium [Moles/Vol] 4.0 mmol/L 3.5-5.1 [facility] RBC Auto (Bld) [#/Vol]Ordere d By: Dominick Herbert on 03-26-2023 RBC (Bld) [#/Vol] 4.94 10*6/uL 3.90-5.60 [facility] Serum or plasma anion gap de terminationOrdered By: Dominick Herbert on 03-26-2023 Anion gap [Moles/Vol] 8.6 mmol/L 6.0-15.0 [facility] Sodium [Moles/volume] in Ser um or PlasmaOrdered By: Dominick Herbert on 03-26-2023 Sodium [Moles/Vol] 139 mmol/L 136-[address] [facility] Troponin I High Sensitivityo n 03-26-2023 Troponin I High Sensitivity 7.6 pg/mL Normal 0.0-20.0 [facility] Comment on above: Result Comment: PERF ORMED BY: [place] [address] PATHOLOGIST ENTRY LEVEL MACHINE OPERATOR STUART SIGALA M.D. Performed By: #### B MP, CBC, PHOS, BNP, HS TROP, MG #### [address] Troponin I.cardiac [Mass/vol ume] in Serum or Plasma by Detection limit <= 0.01 ng/Ordered By: Dominick Herbert on 03-26-2023 Troponin I.cardiac DL <= 0.01 ng/mL [Mass/Vol] 7.6 pg/mL 0.0-20.[address] [facility] Urea nitrogen [Mass/volume] in Serum or PlasmaOrdered By: Dominick Herbert on 03-26-2023 Urea nitrogen [Mass/Vol] 17 mg/dL 7-[address] [facility] WBC Auto (Bld) [#/Vol]Ordere d By: Dominick Herbert on 03-26-2023 WBC (Bld) [#/Vol] 9.9 10*3/uL 4.1-10.[address] [facility] XR chest 1V portableon 03-26 XR chest 1V portable [facility] [address] [place] [address] [place] [id number] XRay Report Signed Patient: Katelynn Burdick MR#: [id number] 1 : 1975 Acct:[id number] Age/Sex: 47 / M ADM Date: 03/26/23 Loc: ER Room: Type: PRE ER Attending Dr: Copies to: Dominick Herbert DO Ordering Provider: Dominick Herbert DO Date of Service: 03/26/23 XR/XR [...] Alejandra Ivory M.D.03/26/2023 6:27 PM Dictation Location: [place] [address] Transcribed By: [facility] 03/26/231826 Dictated By: Alejandra Ivory MD 03/26/231825 Signed By: 03/26/231826 Normal [facility] CORONAVIRUS 2019 BY PCRon SARS-CoV-2 (COVID-19) RNA ROBBIE+probe Ql (Unsp spec) Detected Abnormal Not Detected [facility] Comment on above: Result Comment: . This [...] this test method. Fact sheet for providers: https://www.fda.gov/media/615323/download Fact sheet for patients: https://www.fda.gov/media/497728/download This test has received FDA Emergency Use Authorization [EUA] and has been verified by [facility] ([facility]). This test is only authorized for the duration of time that circumstances exist to justify the authorization of the emergency use of in vitro diagnostic tests for the detection of SARS-CoV-2 virus and/or diagnosis of COVID-19 infection under section 564(b)(1) of the Act, 21 U.S.C. 360bbb-3(b)(1), unless the authorization is terminated or revoked sooner. [facility] is certified under CLIA-88 as qualified to perform high complexity testing. Testing is performed in the [facility] laboratories located at [address] [place] [address]. Performed By: #### C OV19 #### [facility] [address] [place] [address] Covid 19 Resultson 2 SARS-CoV-2 (COVID-19) RNA [...] You may also be contacted by the [facility] to see if any of your close [...] or Naproxen (Aleve) can also be used. Swpo-vyi-gjosjup cough and cold medicines can be used according to the instructions on the package. Some qamv-sqz-tmskvlw medicines also contain acetaminophen. Make sure you [...] water are not available, use alcohol-based hand sodium methylate operator. Avoid touching your eyes, nose, and mouth [...] 24 anum (more content not included)... Normal [facility] CORONAVIRUS 2019 BY PCRon Lab Specimen Source Nasal, Nasopharyngeal Normal [facility] Comment on above: Performed By: #### C OV19 #### [facility] [address] [place] [id number] Coronavirus 2019 RNA by PCR, Symptomaticon 03-18-2022 Coronavirus 2019 RNA by PCR, Symptomatic Detected Abnormal See Below [facility] Work Phone: Comment on above: SOURCE: Nasal, [...] this test method. Fact sheet for providers: https://www.fda.gov/media/924691/downloadFact sheet for patients: https://www.fda.gov/media/403991/downloadThis test has received FDA Emergency Use Authorization [EUA] and has been verified by [facility] ([facility]). This test is only authorized for the duration of time that circumstances exist to justify the authorization of the emergency use of in vitro diagnostic tests for the detection of SARS-CoV-2 virus and/or diagnosis of COVID-19 infection under section 564(b)(1) of the Act, 21 U.S.C. 360bbb-3(b)(1), unless the authorization is terminated or revoked sooner. [facility] is certified under CLIA-88 as qualified to perform high complexity testing. Testing is performed in the [facility] laboratories located at [address] [place] [address]. Office Visit (Urgent Care)on 03-18-2022 Follow-up visit [...] presents for COVID-19 testing. He works for [employer]. He resents with a 1 day history [...] AM Vitals Vital Signs Recorded: 18Mar2022 11:31AM Qtrfrlrrgio91.1 F, Temporal Heart Rate89 Ecilsatjmdg18 Respiration QualityNormal Tlaftwxw002, Sitting Azijwcpfi84, Sitting Blood Pressure Cuff SizeAdult Height6 ft 1 in Zivnyt588 lb BMI Tujnekggje41.78 kg/m2 BSA Calculated2.17 Tobacco Useb) No Falls Screening (Age 18+)a) No falls within the last year O2 Fmtpblryom59, RA Pain Scale0 PHQ-9 #1. Little interest [...] Mar 18 2022 12:23PM EST (Author) Normal ExactTargeton 03-18-2022 Fall risk assessment a) No falls within the last year [email or web address] Work Phone: Tobacco use status [facility] b) No [email or web address] Work Phone: Respiration Normal [email or web address] Work Phone: Respiration Adult [email or web address] Work Phone: Respiration 0-Not at all [email or web address] Work Phone: Vital Signs Date Time Vital Sign Value Performing Clinician Facility 12-08-2023 09:35-0400 Diastolic blood pressure 75 mm[Hg] DO Dominick Petznick Work Phone: [phone] [place] [address] 12-08-2023 09:35-0400 Heart rate 63 /min DO Dominick Petznick Work Phone: [phone] [place] [address] 12-08-2023 09:35-0400 Respiratory rate 16 /min DO Dominick Petznick Work Phone: [phone] [place] [address] 12-08-2023 09:35-0400 SaO2% (BldA) [Mass fraction] 97 % DO Dominick Petznick Work Phone: [phone] [place] [address] 12-08-2023 09:35-0400 Systolic blood pressure 110 mm[Hg] DO Dominick Petznick Work Phone: [phone] [place] [address] 12-08-2023 07:55-0400 Body height 185.42 cm DO Dominick Petznick Work Phone: [phone] [place] [address] 12-08-2023 07:55-0400 Body weight 83.91 kg DO Dominick Petznick Work Phone: [phone] [place] [address] 03-26-2023 19:00-0400 Diastolic blood pressure 87 mm[Hg] DO Dominick Petznick Work Phone: [phone] [address] [place] [address] 03-26-2023 19:00-0400 Heart rate 72 /min DO Dominick Petznick Work Phone: [phone] [place] [address] 03-26-2023 19:00-0400 Respiratory rate 18 /min DO Dominick Petznick Work Phone: [phone] [place] [address] 03-26-2023 19:00-0400 SaO2% (BldA) [Mass fraction] 94 % DO Dominick Petznick Work Phone: [phone] [place] [address] 03-26-2023 19:00-0400 Systolic blood pressure 121 mm[Hg] DO Dominick Petznick Work Phone: [phone] [place] [address] 03-26-2023 17:35-0400 Body height 185.42 cm DO Dominick Rodriguezick Work Phone: [facility] 03-26-2023 17:35-0400 Body temperature 98.2 [degF] DO Dominick Rodriguezick Work Phone: [facility] 03-26-2023 17:35-0400 Body weight 92.15 kg DO Dominick Rodriguezick Work Phone: [facility] 03-18-2022 11:31-0400 Body height 185.42 cm Dominick Rodriguezick Work Phone: [facility] Work Phone: 03-18-2022 11:31-0400 Body mass index (BMI) [Ratio] 26.78 kg/m2 Dominick Pickens Work Phone: [facility] Work Phone: 03-18-2022 11:31-0400 Body surface area Derived from formula 2.17 m2 Dominick Rodriguezick Work Phone: [facility] Work Phone: 03-18-2022 11:31-0400 Body temperature 98.1 [degF] Dominick Pickens Work Phone: [facility] Work Phone: 03-18-2022 11:31-0400 Body weight 92.08 kg Dominick Rodriguezick Work Phone: [facility] Work Phone: 03-18-2022 11:31-0400 Diastolic blood pressure 69 mm[Hg] Dominick Rodriguezick Work Phone: [facility] Work Phone: 03-18-2022 11:31-0400 Heart rate 89 /min Dominick Rodriguezick Work Phone: [facility] Work Phone: 03-18-2022 11:31-0400 Respiratory rate 20 /min Dominick Rodriguezick Work Phone: [facility] Work Phone: 03-18-2022 11:31-0400 SaO2% (BldA) [Mass fraction] 98 % Dominick Rodriguezick Work Phone: [facility] Work Phone: 03-18-2022 11:31-0400 Systolic blood pressure 126 mm[Hg] Dominick Mongeznick Work Phone: [facility] Work Phone: 03-18-2022 11:31-0400 0 1 Dominick Damon Petznick Work Phone: [facility] Work Phone: Comment on above: [employer] Encounters Encounter Date Encounter Type Care Provider Facility Start: 04-23-2024 End: 04-23-2024 ambulatory DOMINICK RODRIGUEZICK Not Available Start: 12-08-2023 End: 12-08-2023 ambulatory Dominick Petznick Facility:[facility] Start: 12-08-2023 Non-patient / Non-visit DO Dominick Petznick Work Phone: [facility] Work Phone: Start: 12-08-2023 End: 12-08-2023 Admission to same day surgery center DO Dominick Petznick Work Phone: [facility] Work Phone: Start: 12-08-2023 End: 12-08-2023 ambulatory DO Dominick Petznick Work Phone: [facility] Work Phone: Start: 04-30-2023 End: 04-30-2023 ambulatory Dominick Petznick Facility:[facility] Start: 04-30-2023 End: 04-30-2023 ambulatory DO Dominick Petznick Work Phone: [facility] Work Phone: Start: 04-30-2023 End: 04-30-2023 Patient encounter procedure DO Dominick Pickens Work Phone: [facility] [place] Work Phone: Start: 04-23-2023 End: 04-23-2023 ambulatory DO Dominick Pickens Work Phone: [facility] Work Phone: Start: 04-23-2023 End: 04-23-2023 Patient encounter procedure DO Dominick Pickens Work Phone: [facility] [place] Work Phone: Start: 04-16-2023 End: 04-16-2023 ambulatory Dominickheena Pickens Facility:[facility] Start: 04-16-2023 End: 04-16-2023 Patient encounter procedure DO Dominick Pickens Work Phone: [facility] [place] Work Phone: Start: 03-26-2023 End: 03-26-2023 Emergency department patient visit Dominick Pickens Facility:[facility] Start: 03-26-2023 End: 03-26-2023 Emergency department patient visit DO Dominick Pickens Work Phone: [facility] Work Phone: Start: 03-19-2022 Chart Update Dominick C Cecil aldana Work Phone: [facility] Work Phone: Start: 03-18-2022 Adv care pln tlkd & alt dcsn maker docd Dominick Marisol Mongechandler Work Phone: [facility] Work Phone: Start: 03-18-[address] Ladi Arcos Facility:[id number] Procedures Date Procedure Procedure Detail Performing Clinician Start: 12-08-2023 Screening colonoscopy D O Dominick Pickens Work Phone: Start: 03-26-2023 Plain chest X-ray DO Christy Pickens Work Phone: Plan of Treatment Date Care Activity Detail Author Start: 12-08-[address] [facility] Patient Education [facility] Work Phone: Patient referral [facility] Work Phone: Payers Date Payer Category Payer Self-pay 2023 Unknown [id number] 2022 Unknown [id number] 1975 Unknown [id number] 1975 Unknown [id number] Unknown [employer] Unknown [id number] Unknown [id number] Unknown [id number] Unknown [id number] Social History Date Type Detail Facility Start: 03-26-2023 End: 12-08-2023 Tobacco smoking status [facility] Smoker (finding) [facility] Start: 1975 Sex Assigned At Male F [facility] Goals Date Patient Goal Desired Activity /State Procedure note 12-08-2023 Note Date & Type Note Facility 12-08-2023 Procedure note [facility] Evaluation note Note Date & Type Note Facility Evaluation note No assessment information availa ble [facility] Work Phone: History and physical note Note Date & Type Note Facility History and physical note Note Date/Time December 08, 2023 8:4 6am [facility] [address] [place] [address] Gastroenterology H&P Signed Patient: Katelynn Burdick MR#: [id number] : 1975 Acct:[id number] Age/Sex: 48 / M Adm Date: 4 Loc: Room: Type: [facility] Attending Dr: Martin Jacobo MD Copies to: MD Dominick Gabriel, ~ Date of Service: 12/08/2023 HISTORY & PHYSICAL: [...] <Electronically signed by Martin Jacobo MD> 12/08/2346 [facility] Work Phone: History of Present illness Narrative Note Date & Type Note Facility History of Present illness Narrative Patient is a 46-year-old male who presents for COVID-19 testing. He works for [employer]. He resents with a 1 day history [...] no arthralgias and myalgias.Neurological: + headache. [email or web address] Work Phone: Chief Complaint Duran/COVID Summary Purpose [...] section and content) DATE CREATED AUTHOR 03/19/2022 [facility] DATE CREATED AUTHOR AUTHOR'S ORGANIZ ATION 03/20/2022 [facility] DATE CREATED AUTHOR AUTHOR'S ORGANIZ ATION [facility]/2023 [facility] DATE CREATED AUTHOR AUTHOR'S ORGANIZ ATION 12/16/2023 [facility] DATE CREATED AUTHOR AUTHOR'S ORGANIZ ATION 04/24/2024 [facility] Care Teams (unrecognized sec tion and content) Team Status: Active Member Role Status Dates Dominick Petznick , DO Primary Care Provider Active Team Status: Inactive Member Role Status Dates Dominick Pickens , DO Primary Care Provider Active Dominick Herbert , DO Emergency Provider Active Team Status: Inactive Member Role Status Dates Dominick Pickens , DO Primary Care Provider, Attending Provider Active Team Status: Inactive Member Role Status Dates Dominick Pickens , DO Primary Care Provider Active Start: December 08, 2023 End: December 08, 2023 Martin Jacobo MD Attending Provider Active S tart: December 08, 2023 End: December 08, 2023 Team Status: Active Member Role Status Dates Dominick Pickens , Primary Care Provider Active Start: December 08, [...] BE BASED ON THE PRIMARY CLINICAL RECORDS. [employer] provides no warranty or guarantee of the accuracy or completeness of information in this document.
--- NOTE | 2024-04-26 14:50 | XR_ITS ---
The [address] [address] Patient Name: KATELYNN VANEGAS MRN: [id number] date: 1975 Sex: M Assigned Patient Location: [facility] Current Patient Location: Accession/Order Number: [id number] Exam Date: 04/26/2024 14:50 Report Date: 04/27/2024 07:03 At the request of: DOLLY BYRD Procedure: XR chest 2V PROCEDURE: XR chest 2V DATE: 04/26/2024 1:50 PM CDT COMPARISONS: None. CLINICAL INDICATION: 48 years Male Z01.812 Pre op eval; Neck Pain M54.2 FINDINGS: The cardiomediastinal silhouette and pulmonary vasculature are within normal limits. There is slight diffuse increased interstitial markings throughout all lung lai likely representing some mild chronic lung changes. There is no evidence of pleural effusion or pneumothorax. XR/XR chest 2V IMPRESSION: Chest radiograph shows evidence of mild chronic lung changes. Electronically authenticated by: RON SHRESTHA Date: 04/27/2024 07:03
== END 2024-04-26 12:56 | disposition home or self-care (01) ==
LOC: RAD 12:55
PROVIDERS: PCP Family Medicine; Visit Provider Orthopaedic Surgery Orthopaedic Surgery of the Spine
DX: M54.2 Cervicalgia (principal); M47.812 Spondylosis without myelopathy or radiculopathy, cervical region
CPT/HCPCS: 36415; 71046; 72040; 80048; 85025; 85610; 85730; 87081; 93005

== ENCOUNTER 2024-04-26 14:32 | Outpatient (OUT) | payer OTHER, SELFPAY ==
[2024-04-26 15:16] LABS: Basophils Absolute Auto 0.1 10^3/uL (0.0-0.1); Basophils Percent Auto 0.7 % (0.2-2.0); Eosinophils Absolute Auto 0.1 10^3/uL (0.0-0.7); Eosinophils Percent Auto 0.8 % (0.9-7.0); Hematocrit 46.3 % (42.0-54.0); Immature Granulocytes Abs Auto 0.02 10^3/uL (0.00-0.03); Immature Granulocytes Pct Auto 0.2 % (0.0-0.5); Lymphocytes Absolute Auto 2.1 10^3/uL (1.2-3.8); Lymphocytes Percent Auto 24.2 % (20.5-60.0); Mean Corpuscular HGB Conc 34.6 g/dL (29.9-35.2); Mean Corpuscular Hemoglobin 33.1 pg (25.9-34.0); Mean Corpuscular Volume 95.7 fL (80.0-94.0); Mean Platelet Volume 10.5 fL (9.5-13.5); Monocytes Absolute Auto 0.5 10^3/uL (0.3-0.8); Monocytes Percent Auto 5.9 % (1.7-12.0); Neutrophils Percent Auto 68.2 % (43.0-75.0); Platelet Count 233 10^3/uL (150-450); Red Blood Count 4.84 10^6/uL (4.70-6.10); Red Cell Distribution Width 13.9 % (11.0-15.0); White Blood Count 8.8 10^3/uL (4.0-11.0)
[2024-04-26 15:49] LABS: Anion Gap 11.3; BUN Creatinine Ratio 11.1; Calcium 9.4 mg/dL (8.5-10.1); Carbon Dioxide 31.9 mmol/L (21.0-32.0); Chloride 104 mmol/L (98-107); Estimated GFR (African America >60 (>=60); Estimated GFR (Non-African Ame >60 (>=60); Glucose 91 mg/dL (74-106); Potassium 4.2 mmol/L (3.5-5.1); Sodium 143 mmol/L (136-145)
[2024-04-26 16:14] LABS: INR 0.98; Partial Thromboplastin Time 29.6 sec (22.3-36.2); Prothrombin Time 10.4 sec (9.0-11.6)
== END 2024-04-26 14:33 | disposition home or self-care (01) ==
LOC: LAB 14:34
PROVIDERS: Orthopaedic Surgery Orthopaedic Surgery of the Spine; PCP Family Medicine
DX: M54.2 Cervicalgia (principal)
CPT/HCPCS: 36415; 80048; 85025; 85610; 85730; 87081

== ENCOUNTER 2024-06-15 10:11 | Outpatient (OUT) | payer OTHER, SELFPAY ==
--- NOTE | 2024-06-15 | XR_ITS ---
The [address] [address] Patient Name: KATELYNN VANEGAS MRN: [id number] date: 1975 Sex: M Assigned Patient Location: Current Patient Location: Accession/Order Number: [id number] Exam Date: 06/15/2024 10:14 Report Date: 06/17/2024 06:46 At the request of: DOLLY BYRD Procedure: XR cervical spine 2-3V EXAMINATION: XR cervical spine 2-3V HISTORY: CERVICAL SPINE PAIN COMPARISON: XR cervical spine 04/26/2024 FINDINGS: BONES: Intervertebral disc spacer placement secured with anterior screws at C3-C4. Mechanical fusion of C5-C6-C7 via anterior plate and screws along with intervertebral disc spacer placement at both levels. No significant facet arthropathy. DISC SPACES: See above. PARASPINOUS: Negative. No paraspinous abnormality is seen. OTHER: Negative. XR/XR cervical spine 2-3V IMPRESSION: 1. Surgical changes of the cervical spine as detailed above. No appreciable hardware failure. Electronically authenticated by: BRYCE GARCIA Date: 06/17/2024 06:46
--- OUTSIDE RECORDS SUMMARY | 2024-06-15 10:28 | XMS_ITS | CCD ---
Author Organization [facility] Care Team Providers Care Room Maid Name Role Phone Dominick Pickens Unavailable Unavailable Unavailable Dr. Ladi Arcos Attending Unavailwesley Pickens, Dr. Dominick Ryder Primary Care Un available Ralph, DO Abreu Primary Care Provider DO Dominick Herbert Emergency Provider UnaDO Dominick Elizabeth Attending Provider DO Dominick Pickens Primary Care Provider [phone] MD Martin Jacobo Attending Provider Dominick Pickens Primary Care Unavailable Dominick Herbert Admitting Unavailable Dominick Herbert Attending Unavailable Dominick Pickens Primary Care Unavailable Dominick Pickens Attending Unavailable Dominick Pickens Admitting Unavailable Dominick Pickens Primary Care Unavailable Dominick Pickens Attending Unavailable Dominick Pickens Admitting Unavailable Dominick Pickens Primary Care Unavailable Martin Jacobo Admitting Unavailable Martin Jacobo Attending Unavailable DOMINICK PICKENS Attending Unavailable DOMINICK PICKENS Attending Unavailable Medications [...] Test Name Value Interpretation Reference Range Facility [facility] 12-08-2023 L Specimen: [id number] Received: 12/08/23 Status: KEAGAN Peoples Num: [id number] Spec Type: Surgical Subm Dr: Martin Jacobo MD Tissues: A Colon Biopsy (DESC POLYP) B Colon Biopsy (SIGMOID POLYP) Procedures: HE/4, Gross/Micro L4/2 Age/ Patient Sex Location Account Attending Physician Katelynn Burdick 48/M [id number] Martin Jacobo MD SPEC NUM: [id number] RECD: 12/08/23 STATUS: HALIMAAkin RE NUM: [id number] SRIRAM: 12/08/23- SUBM DR: Martin Jacobo MD ENTERED: 12/08/23 [facility]: SPEC TYPE: Surgical DEPT: S ORDERED: [...] in B1. Clinical history screening TW Specimen: [id number] Received: 12/08/23 Status: KEAGAN Murilloroderick Num: [id number] Spec Type: Surgical Subm Dr: Martin Jacobo MD Tissues: A Colon Biopsy (DESC POLYP) B Colon Biopsy (SIGMOID POLYP) Procedures: CHRISTINE/Jadiel, Noelle/Serenity L4/2 Patient: Katelynn Burdick [id number] (Continued) Specimen: [id number] Received: 12/08/23 (Continued) Signed (signature on file) Theresa Oconnor MD 12/10/23 1313 Specimen: [id number] Received: 12/08/23 Status: KEAGAN Peoples Num: [id number] Spec Type: Surgical Subm Dr: Martin Jacobo MD Tissues: A Colon Biopsy (DESC POLYP) B Colon Biopsy (SIGMOID POLYP) Procedures: /Jadiel, Gross/Micro L4/2 Patient: Katelynn Burdick [id number] (Continued) Specimen: [id number] Received: 12/08/23 (Continued) CPT Codes 26760E8 Specimen: [id number] Received: 12/08/23 Status: KEAGAN Peoples Num: [id number] Spec Type: Surgical Subm Dr: Martin Jacobo MD Tissues: A Colon Biopsy (DESC POLYP) B Colon Biopsy (SIGMOID POLYP) Procedures: CHRISTINE/Jadiel, Noelle/Micro L4/2 Patient: Katelynn Burdick [id number] (Continued) Signed (signature on file) Theresa Oconnor MD 12/10/23 1313 Normal [facility] Alanine aminotransferase [En zymatic activity/volume] in Serum or PlasmaOrdered By: Dominick Pickens on 04-16-2023 ALT [Catalytic activity/Vol] 26 U/L 7 [facility] Albumin [Mass/volume] in Ser um or Plasma by Bromocresol green (BCG) dye binding methoOrdered By: Dominick Pickens on 04-16-2023 Albumin BCG dye [Mass/Vol] 4.5 g/dL 3.5-5.7 [facility] Alkaline phosphatase [Enzyma tic activity/volume] in Serum or PlasmaOrdered By: Dominick Pickens on 04-16-2023 ALP [Catalytic activity/Vol] 61 U/L 34-104 [facility] Aspartate aminotransferase [ Enzymatic activity/volume] in Serum or PlasmaOrdered By: Dominick Pickens on 04-16-2023 AST [Catalytic activity/Vol] 18 U/L 13-39 [facility] Basophils Auto (Bld) [#/Vol] Ordered By: Dominick Pickens on 04-16-2023 Basophils (Bld) [#/Vol] 0.1 10*3/uL 0.0-0.2 [facility] Basophils/100 WBC Auto (Bld) Ordered By: Dominick Pickens on 04-16-2023 Basophils/100 WBC (Bld) 0.7 % . [facility] Bilirubin.total [Mass/volume ] in Serum or PlasmaOrdered By: Dominick Pickens on 04-16-2023 Bilirubin [Mass/Vol] 0.9 mg/dL 0.3-1.0 [facility] Calcium [Mass/volume] in Ser um or PlasmaOrdered By: Dominick Pickens on 04-16-2023 Calcium [Mass/Vol] 9.4 mg/dL 8.6-10.3 [facility] Carbon dioxide, total [Moles /volume] in Serum or PlasmaOrdered By: Dominick Pickens on 04-16-2023 CO2 [Moles/Vol] 30.6 mmol/L 21.0-31.0 [facility] Chloride [Moles/volume] in S isiah or PlasmaOrdered By: Dominick Pickens on 04-16-2023 Chloride [Moles/Vol] 107 mmol/L 98-107 [facility] Cholesterol [Mass/volume] in Serum or PlasmaOrdered By: Dominick Pickens on 04-16-2023 Cholesterol [Mass/Vol] 187 mg/dL 140-[address] [facility] Comment on above: Chol less than 200 m g/dl low riskChol 201-239 mg/dl borderline riskChol 240 mg/dl and greater high risk Cholesterol in LDL Calc [Mas s/Vol]Ordered By: Dominick Pickens on 04-16-2023 Cholesterol in LDL [Mass/Vol] 127 mg/dL 0-100 [facility] Comment on above: LDL ATP III CLASSIFI CATIONLDL less than 100 mg/dL OptimalLDL 100-129 mg/dL Near or above optimalLDL 130-159 mg/dL Borderline highLDL 160-189 mg/dL HighLDL greater than 189 mg/dL Very high Cholesterol in VLDL Calc [Ma ss/Vol]Ordered By: Dominick Pickens on 04-16-2023 Cholesterol in VLDL [Mass/Vol] 22 mg/dL [facility] Complete Blood Count Auto Di ffon 04-16-2023 Basophils (Bld) [#/Vol] 0.1 10*3/uL Normal 0.0-0.2 [facility] Comment on above: Result Comment: PERF ORMED BY: [place] [address] PATHOLOGIST [employer] STUART SIGALA M.D. Performed By: #### L IPID, PTH, CBC, CMP, PHOS, PSAS, TSH3, T4F, URMACRERAT, [id number], MG #### [facility] [address] [place] [address] #### CAION #### [facility] , Basophils/100 WBC (Bld) 0.7 % Normal . [facility] Comment on above: Performed By: #### L IPID, PTH, CBC, CMP, PHOS, PSAS, TSH3, T4F, URMACRERAT, [id number], MG #### [facility] [address] [place] [address] #### CAION #### [facility] , Eosinophils (Bld) [#/Vol] 0.1 10*3/uL Normal 0.0-0.45 [facility] Comment on above: Performed By: #### L IPID, PTH, CBC, CMP, PHOS, PSAS, TSH3, T4F, URMACRERAT, [id number], MG #### [place] [address] [place] #### CAION #### [facility] , Eosinophils/100 WBC (Bld) 1.4 % Normal . [facility] Comment on above: Performed By: #### L IPID, PTH, CBC, CMP, PHOS, PSAS, TSH3, T4F, URMACRERAT, [id number], MG #### [place] [address] [place] #### CAION #### [facility] , Erythrocyte distribution width (RBC) [Ratio] 13.6 % Normal 12.0-14.8 [facility] Comment on above: Performed By: #### L IPID, PTH, CBC, CMP, PHOS, PSAS, TSH3, T4F, URMACRERAT, [id number], MG #### [place] [address] [place] #### CAION #### [facility] , Hematocrit (Bld) [Volume fraction] 48.6 % Normal 38.8-50.0 [facility] Comment on above: Performed By: #### L IPID, PTH, CBC, CMP, PHOS, PSAS, TSH3, T4F, URMACRERAT, [id number], MG #### [place] [address] [place] #### CAION #### [facility] , Hemoglobin (Bld) [Mass/Vol] 16.7 g/dL Normal 13.0-17.0 [facility] Comment on above: Performed By: #### L IPID, PTH, CBC, CMP, PHOS, PSAS, TSH3, T4F, URMACRERAT, [id number], MG #### [place] [address] [place] #### CAION #### [facility] , Lymphocytes (Bld) [#/Vol] 2.2 10*3/uL Normal 1.00-4.8 [facility] Comment on above: Performed By: #### L IPID, PTH, CBC, CMP, PHOS, PSAS, TSH3, T4F, URMACRERAT, [id number], MG #### [address] #### CAION #### [facility] , Lymphocytes/100 WBC (Bld) 28.5 % Normal . [facility] Comment on above: Performed By: #### L IPID, PTH, CBC, CMP, PHOS, PSAS, TSH3, T4F, URMACRERAT, [id number], MG #### [address] #### CAION #### [facility] , MCH (RBC) [Entitic mass] 32.7 pg Normal 27.5-35.2 [facility] Comment on above: Performed By: #### L IPID, PTH, CBC, CMP, PHOS, PSAS, TSH3, T4F, URMACRERAT, [id number], MG #### [address] #### CAION #### [facility] , MCV (RBC) [Entitic vol] 95.1 fL Normal 83.5-101 [facility] Comment on above: Performed By: #### L IPID, PTH, CBC, CMP, PHOS, PSAS, TSH3, T4F, URMACRERAT, [id number], MG #### [place] [address] [place] #### CAION #### [facility] , Mean Corpuscular HGB Conc 34.4 g/dL Normal 32.5-35.6 [facility] Comment on above: Performed By: #### L IPID, PTH, CBC, CMP, PHOS, PSAS, TSH3, T4F, URMACRERAT, [id number], MG #### [place] [address] [place] #### CAION #### [facility] , Monocytes (Bld) [#/Vol] 0.4 10*3/uL Normal 0.0-0.8 [facility] Comment on above: Performed By: #### L IPID, PTH, CBC, CMP, PHOS, PSAS, TSH3, T4F, URMACRERAT, [id number], MG #### [address] #### CAION #### [facility] , Monocytes/100 WBC (Bld) 5.0 % Normal . [facility] Comment on above: Performed By: #### L IPID, PTH, CBC, CMP, PHOS, PSAS, TSH3, T4F, URMACRERAT, [id number], MG #### [place] [address] [place] #### CAION #### [facility] , Neutrophils (Bld) [#/Vol] 5.0 10*3/uL Normal 1.8-7.7 [facility] Comment on above: Performed By: #### L IPID, PTH, CBC, CMP, PHOS, PSAS, TSH3, T4F, URMACRERAT, [id number], MG #### [place] [address] [place] #### CAION #### [facility] , Neutrophils/100 WBC (Bld) 64.4 % Normal . [facility] Comment on above: Performed By: #### L IPID, PTH, CBC, CMP, PHOS, PSAS, TSH3, T4F, URMACRERAT, [id number], MG #### [place] [address] [place] #### CAION #### [facility] , NRBC% 0.1 /100{WBC} Normal 0-0.5 [facility] Comment on above: Performed By: #### L IPID, PTH, CBC, CMP, PHOS, PSAS, TSH3, T4F, URMACRERAT, [id number], MG #### [address] #### CAION #### [facility] , Platelet mean volume (Bld) [Entitic vol] 9.7 fL Normal 6.6-10.1 [facility] Comment on above: Performed By: #### L IPID, PTH, CBC, CMP, PHOS, PSAS, TSH3, T4F, URMACRERAT, [id number], MG #### [address] #### CAION #### [facility] , Platelets (Bld) [#/Vol] 217 10*3/uL Normal 150-450 [facility] Comment on above: Performed By: #### L IPID, PTH, CBC, CMP, PHOS, PSAS, TSH3, T4F, URMACRERAT, [id number], MG #### [place] [address] [place] #### CAION #### [facility] , RBC (Bld) [#/Vol] 5.11 10*6/uL Normal 3.90-5.60 [facility] Comment on above: Performed By: #### L IPID, PTH, CBC, CMP, PHOS, PSAS, TSH3, T4F, URMACRERAT, [id number], MG #### [place] [address] [place] #### CAION #### [facility] , WBC (Bld) [#/Vol] 7.8 10*3/uL Normal 4.1-10.5 [facility] Comment on above: Performed By: #### L IPID, PTH, CBC, CMP, PHOS, PSAS, TSH3, T4F, URMACRERAT, [id number], MG #### [address] #### CAION #### [facility] , Comprehensive Metabolic Pane christine 04-16-2023 Albumin [Mass/Vol] 4.5 g/dL Normal 3.5-5.7 [facility] Comment on above: Performed By: #### B MP, CBC, PHOS, BNP, HS TROP, MG #### [address] Albumin/Globulin [Mass ratio] 1.9 {ratio} Normal [facility] Comment on above: Performed By: #### B MP, CBC, PHOS, BNP, HS TROP, MG #### [address] ALP [Catalytic activity/Vol] 61 U/L Normal 34-104 [facility] Comment on above: Performed By: #### B MP, CBC, PHOS, BNP, HS TROP, MG #### [address] ALT [Catalytic activity/Vol] 26 U/L Normal 7-52 [facility] Comment on above: Performed By: #### B MP, CBC, PHOS, BNP, HS TROP, MG #### [address] Anion gap [Moles/Vol] 7.9 mmol/L Normal 6.0-15.0 [facility] Comment on above: Performed By: #### B MP, CBC, PHOS, BNP, HS TROP, MG #### [address] AST [Catalytic activity/Vol] 18 U/L Normal 13-39 [facility] Comment on above: Performed By: #### B MP, CBC, PHOS, BNP, HS TROP, MG #### [address] Bilirubin [Mass/Vol] 0.9 mg/dL Normal 0.3-1.0 [facility] Comment on above: Performed By: #### B MP, CBC, PHOS, BNP, HS TROP, MG #### [address] Calcium [Mass/Vol] 9.4 mg/dL Normal 8.6-10.3 [facility] Comment on above: Performed By: #### B MP, CBC, PHOS, BNP, HS TROP, MG #### [address] Chloride [Moles/Vol] 107 mmol/L Normal 98-107 [facility] Comment on above: Performed By: #### B MP, CBC, PHOS, BNP, HS TROP, MG #### [address] CO2 [Moles/Vol] 30.6 mmol/L Normal 21.0-31.0 [facility] Comment on above: Performed By: #### B MP, CBC, PHOS, BNP, HS TROP, MG #### [address] Creatinine [Mass/Vol] 0.87 mg/dL Normal 0.70-1.30 [facility] Comment on above: Performed By: #### B MP, CBC, PHOS, BNP, HS TROP, MG #### [address] GFR/1.73 sq M.predicted MDRD (S/P/Bld) [Vol rate/Area] mL/min/{1.73_m2} Normal [facility] Comment on above: Performed By: #### B MP, CBC, PHOS, BNP, HS TROP, MG #### [address] Globulin (S) [Mass/Vol] 2.4 g/dL Normal [facility] Comment on above: Performed By: #### B MP, CBC, PHOS, BNP, HS TROP, MG #### [address] Glucose [Mass/Vol] 92 mg/dL Normal 70-100 [facility] Comment on above: Result Comment: [facility] Glucose Reference Range is dependent on time and content of last meal. Glucose of more than 200 mg/dL in a nonstressed, ambulatory subject supports the diagnosis of Diabetes Mellitus. ADA recommended reference range Performed By: #### B MP, CBC, PHOS, BNP, HS TROP, MG #### [facility] [address] [place] [address] Potassium [Moles/Vol] 4.5 mmol/L Normal 3.5-5.1 [facility] Comment on above: Performed By: #### B MP, CBC, PHOS, BNP, HS TROP, MG #### [address] Protein [Mass/Vol] 6.9 g/dL Normal 6.4-8.9 [facility] Comment on above: Performed By: #### B MP, CBC, PHOS, BNP, HS TROP, MG #### [address] Sodium [Moles/Vol] 141 mmol/L Normal 136-145 [facility] Comment on above: Performed By: #### B MP, CBC, PHOS, BNP, HS TROP, MG #### [address] Urea nitrogen [Mass/Vol] 13 mg/dL Normal 7-25 [facility] Comment on above: Performed By: #### B MP, CBC, PHOS, BNP, HS TROP, MG #### [address] Creatinine [Mass/volume] in Serum or PlasmaOrdered By: Dominick Pickens on 04-16-2023 Creatinine [Mass/Vol] 0.87 mg/dL 0.70-1.30 [facility] Creatinine [Mass/volume] in UrineOrdered By: Dominick Pickens on 04-16-2023 Creatinine (U) [Mass/Vol] 135.0 mg/dL 14.0-26.0 [facility] Eosinophils Auto (Bld) [#/Vo l]Ordered By: Dominick Pickens on 04-16-2023 Eosinophils (Bld) [#/Vol] 0.1 10*3/uL 0.0-0.45 [facility] Eosinophils/100 WBC Auto (Bl d)Ordered By: Dominick Pickens on 04-16-2023 Eosinophils/100 WBC (Bld) 1.4 % . [facility] Erythrocyte distribution wid th Auto (RBC) [Ratio]Ordered By: Dominick Pickens on 04-16-2023 Erythrocyte distribution width (RBC) [Ratio] 13.6 % 12.0-14.8 [facility] Free T4 (Free Thyroxine)on 0 04-16-2023 Free T4 [Mass/Vol] 0.68 ng/dL Normal 0.61-1.12 [facility] Comment on above: Performed By: #### B MP, CBC, PHOS, BNP, HS TROP, MG #### [address] Globulin Calc (S) [Mass/Vol] Ordered By: Dominick Pickens on 04-16-2023 Globulin (S) [Mass/Vol] 2.4 g/dL [facility] Glucose [Mass/volume] in Ser um or PlasmaOrdered By: Dominick Pickens on 04-16-2023 Glucose [Mass/Vol] 92 mg/dL 70-100 [facility] Comment on above: ADA recommended refe rence rangeRandom Glucose Reference Range is dependent on time and content of last meal. Glucose of more than 200 mg/dL in a nonstressed, ambulatory subject supports the diagnosis of Diabetes Mellitus. Hematocrit Auto (Bld) [Volum e fraction]Ordered By: Dominick Pickens on 04-16-2023 Hematocrit (Bld) [Volume fraction] 48.6 % 38.8-50.0 [facility] Hemoglobin [Mass/volume] in BloodOrdered By: Dominick Pickens on 04-16-2023 Hemoglobin (Bld) [Mass/Vol] 16.7 g/dL 13.0-17.0 [facility] Ionized Calciumon 04-16-2023 Ionized Calcium Normal . [facility] Comment on above: Result Comment: Test not performed. Deterioration occurred during specimen handling. contacted your facility on 04-20-2023 PERFORMED BY: [place] [address] PATHOLOGIST [employer]PER[employer] STUART SIGALA M.D. Performed By: #### B MP, CBC, PHOS, BNP, HS TROP, MG #### [address] Leukocytes [#/volume] correc lolis for nucleated erythrocytes in Blood by Automated counOrdered By: Dominick Pickens on 04-16-2023 WBC corrected for nucl RBC Auto (Bld) [#/Vol] 7.8 10*3/uL 4.1-10.5 [facility] Lipid Panelon 04-16-2023 Cholesterol [Mass/Vol] 187 mg/dL Normal 140-200 [facility] Comment on above: Result Comment: Chol less than 200 mg/dl low risk Chol 201-239 mg/dl borderline risk Chol 240 mg/dl and greater high risk Performed By: #### B MP, CBC, PHOS, BNP, HS TROP, MG #### [address] Cholesterol in HDL [Mass/Vol] 37 mg/dL Normal 23-92 [facility] Comment on above: Result Comment: HDL CHOL ATP-III CLASSIFICATION Cardiovascular Risk HDL > or equal to 60 mg/dL LOW HDL < 40 mg/dL HIGH Performed By: #### B MP, CBC, PHOS, BNP, HS TROP, MG #### [address] Cholesterol.total/Chol esterol in HDL [Mass ratio] 5.1 {ratio} Normal <5.0 [facility] Comment on above: Performed By: #### B MP, CBC, PHOS, BNP, HS TROP, MG #### [address] LDL Cholesterol,Calculated 127 mg/dL High 0-100 [facility] Comment on above: Result Comment: LDL ATP III CLASSIFICATION LDL less than 100 mg/dL Optimal LDL 100-129 mg/dL Near or above optimal LDL 130-159 mg/dL Borderline high LDL 160-189 mg/dL High LDL greater than 189 mg/dL Very high Performed By: #### B MP, CBC, PHOS, BNP, HS TROP, MG #### [facility] [address] Triglyceride w/Reflex 114 mg/dL Normal 0-149 [facility] Comment on above: Result Comment: TRIG ATP III CLASSIFICATION TRIG less than 150 mg/dL Normal TRIG 150-199 mg/dL Borderline high TRIG 200-500 mg/dL High TRIG greater than 500 mg/dL Very high Standard traceable to the Center for Disease Conrtrol and Prevention (CDC) test method. Performed By: #### B MP, CBC, PHOS, BNP, HS TROP, MG #### [facility] [address] VLDL CHOLESTEROL 22 mg/dL Normal [facility] Comment on above: Performed By: #### B MP, CBC, PHOS, BNP, HS TROP, MG #### [facility] [address] Lymphocytes Auto (Bld) [#/Vo l]Ordered By: Dominick Pickens on 04-16-2023 Lymphocytes (Bld) [#/Vol] 2.2 10*3/uL 1.00-4.8 [facility] Lymphocytes/100 WBC Auto (Bl d)Ordered By: Dominick Pickens on 04-16-2023 Lymphocytes/100 WBC (Bld) 28.5 % . [facility] MCH Auto (RBC) [Entitic mass ]Ordered By: Dominick Pickens on 04-16-2023 MCH (RBC) [Entitic mass] 32.7 pg 27.5-35.2 [facility] MCHC Auto (RBC) [Mass/Vol]Or dered By: Dominick Pickens on 04-16-2023 MCHC (RBC) [Mass/Vol] 34.4 g/dL 32.5-35.6 [facility] MCV Auto (RBC) [Entitic vol] Ordered By: Dominick Pickens on 04-16-2023 MCV (RBC) [Entitic vol] 95.1 fL 83.5-101 [facility] Magnesiumon 04-16-2023 Magnesium [Mass/Vol] 2.1 mg/dL Normal 1.9-2.7 [facility] Comment on above: Performed By: #### B MP, CBC, PHOS, BNP, HS TROP, MG #### [address] Magnesium [Mass/volume] in S isiah or PlasmaOrdered By: Dominick Pickens on 04-16-2023 Magnesium [Mass/Vol] 2.1 mg/dL 1.9-2.7 [facility] MicroAlb Creat Ratio,Uon Albumin DL <= 20 mg/L (U) [Mass/Vol] mg/dL Normal 0.0-1.8 [facility] Comment on above: Performed By: #### B MP, CBC, PHOS, BNP, HS TROP, MG #### [address] Creatinine, Urine (Random) 135.0 mg/dL High 14.0-26.0 [facility] Comment on above: Performed By: #### B MP, CBC, PHOS, BNP, HS TROP, MG #### [address] Microalbumin/Creatinin e Ratio Not performed Normal 0.0-30.0 [facility] Comment on above: Result Comment: PERF ORMED BY: [place] [address] PATHOLOGIST [employer] STUART SIGALA M.D. Performed By: #### B MP, CBC, PHOS, BNP, HS TROP, MG #### [address] Microalbumin [Mass/volume] i n UrineOrdered By: Dominick Pickens on 04-16-2023 Albumin DL <= 20 mg/L (U) [Mass/Vol] mg/dL 0.0-1.8 [facility] Monocytes Auto (Bld) [#/Vol] Ordered By: Dominick Pickens on 04-16-2023 Monocytes (Bld) [#/Vol] 0.4 10*3/uL 0.0-0.8 [facility] Monocytes/100 WBC Auto (Bld) Ordered By: Dominick Pickens on 04-16-2023 Monocytes/100 WBC (Bld) 5.0 % . [facility] Neutrophils Auto (Bld) [#/Vo l]Ordered By: Dominick Ralph on 04-16-2023 Neutrophils (Bld) [#/Vol] 5.0 10*3/uL 1.8-7.7 [facility] Neutrophils/100 WBC Auto (Bl d)Ordered By: Dominick Pickens on 04-16-2023 Neutrophils/100 WBC (Bld) 64.4 % . [facility] No Panel InformationOrdered By: Dominick Pickens on 04-16-2023 Estimated GFR (CKD-EPI) > 60.0 mL/Min [facility] Creatinine Clearance (Chem N/A [facility] Nucleated erythrocytes [Pres ence] in Blood by Automated countOrdered By: Dominick Pickens on 04-16-2023 Nucleated RBC Auto Ql (Bld) 0.1 /100{WBC} 0-0.5 [facility] PSA Screen (Yearly Only)on 0 04-16-2023 PSA Screen (Yearly Only) 0.390 ng/mL Normal 0.000-4.000 [facility] Comment on above: Result Comment: PERF ORMED BY: [place] [address] PATHOLOGIST [employer] STUART SIGALA M.D. Performed By: #### B MP, CBC, PHOS, BNP, HS TROP, MG #### [address] Parathyrin.intact [Mass/volu me] in Serum or PlasmaOrdered By: Dominick Pickens on 04-16-2023 Parathyrin.intact [Mass/Vol] 32.5 pg/mL [facility] Parathyroid Hormone Intacton 04-16-2023 Parathyroid Hormone Intact 32.5 pg/mL Normal [facility] Comment on above: Result Comment: PERF ORMED BY: [place] [id number] PATHOLOGIST SUPER[employer] STUART SIGALA M.D. Performed By: #### B MP, CBC, PHOS, BNP, HS TROP, MG #### [facility] [address] Phosphate [Mass/volume] in S isiah or PlasmaOrdered By: Dominick Pickens on 04-16-2023 Phosphate [Mass/Vol] 3.2 mg/dL 3.7-7.2 [facility] Phosphoruson 04-16-2023 Phosphate [Mass/Vol] 3.2 mg/dL Low 3.7-7.2 [facility] Comment on above: Performed By: #### B MP, CBC, PHOS, BNP, HS TROP, MG #### [facility] [address] Platelet mean volume Auto (B ld) [Entitic vol]Ordered By: Dominick Pickens on 04-16-2023 Platelet mean volume (Bld) [Entitic vol] 9.7 fL 6.6-10.1 [facility] Platelets Auto (Bld) [#/Vol] Ordered By: Dominick Pickens on 04-16-2023 Platelets (Bld) [#/Vol] 217 10*3/uL 150-450 [facility] Potassium [Moles/volume] in Serum or PlasmaOrdered By: Dominick Pickens on 04-16-2023 Potassium [Moles/Vol] 4.5 mmol/L 3.5-5.1 [facility] Prostate specific Ag [Mass/v olume] in Serum or PlasmaOrdered By: Dominick Pickens on 04-16-2023 Prostate specific Ag [Mass/Vol] 0.390 ng/mL 0.000-4.000 [facility] Protein [Mass/volume] in Ser um or PlasmaOrdered By: Dominick Pickens on 04-16-2023 Protein [Mass/Vol] 6.9 g/dL 6.4-8.9 [facility] RBC Auto (Bld) [#/Vol]Ordere d By: Dominick Pickens on 04-16-2023 RBC (Bld) [#/Vol] 5.11 10*6/uL 3.90-5.60 [facility] Serum ionized calcium measur ement using ion specific electrode (mass/volume)Ordered By: Dominick Pickens on 04-16-2023 Calcium.ionized ISE [Mass/Vol] See comment . [facility] Comment on above: Test not performed. Deterioration occurred during specimenhandling.contacted your facility on 04-20-2023 Serum or plasma albumin/glob ulin mass ratioOrdered By: Dominick Pickens on 04-16-2023 Albumin/Globulin [Mass ratio] 1.9 {ratio} [facility] Serum or plasma anion gap de terminationOrdered By: Dominick Pickens on 04-16-2023 Anion gap [Moles/Vol] 7.9 mmol/L 6.0-15.0 [facility] Serum or plasma high density lipoprotein (HDL) cholesterol measurementOrdered By: Dominick Pickens on 04-16-2023 Cholesterol in HDL [Mass/Vol] 37 mg/dL 23-92 [facility] Comment on above: HDL CHOL ATP-III CLA SSIFICATION Cardiovascular RiskHDL > or equal to 60 mg/dL LOWHDL < 40 mg/dL HIGH Serum or plasma total choles terol/high density lipoprotein (HDL) cholesterol mass ratOrdered By: Dominick Pickens on 04-16-2023 Cholesterol.total/Chol esterol in HDL [Mass ratio] 5.1 {ratio} <5.0 [facility] Sodium [Moles/volume] in Ser um or PlasmaOrdered By: Dominick Pickens on 04-16-2023 Sodium [Moles/Vol] 141 mmol/L 136-145 [facility] Thyroid Stimulating Hormoneo n 04-16-2023 TSH Qn 0.84 m[IU]/L Normal 0.45-5.33 [facility] Comment on above: Performed By: #### B MP, CBC, PHOS, BNP, HS TROP, MG #### [address] Thyrotropin [Units/volume] i n Serum or PlasmaOrdered By: Dominick Pickens on 04-16-2023 TSH Qn 0.84 m[IU]/L 0.45-5.33 [facility] Thyroxine (T4) free [Mass/vo lume] in Serum or PlasmaOrdered By: Dominick Pickens on 04-16-2023 Free T4 [Mass/Vol] 0.68 ng/dL 0.61-1.12 [facility] Triglyceride [Mass/volume] i n Serum or PlasmaOrdered By: Dominick Pickens on 04-16-2023 Triglyceride [Mass/Vol] 114 mg/dL 0-149 [facility] Comment on above: TRIG ATP III CLASSIF ICATIONTRIG less than 150 mg/dL NormalTRIG 150-199 mg/dL Borderline highTRIG 200-500 mg/dL High TRIG greater than 500 mg/dL Very highStandard traceable to the Center for Disease Conrtrol and Prevention (CDC) test method. Urea nitrogen [Mass/volume] in Serum or PlasmaOrdered By: Dominick Pickens on 04-16-2023 Urea nitrogen [Mass/Vol] 13 mg/dL 7-25 [facility] Urine microalbumin/creatinin e mass ratioOrdered By: Dominick Pickens on 04-16-2023 Albumin/Creatinine DL <= 20 mg/L (U) [Mass ratio] TNP [facility] Comment on above: Test not performed Vitamin D 25 Hydroxy Totalon 04-16-2023 Vitamin D 25 Hydroxy Total 34.7 ng/mL Normal 30-100 [facility] Comment on above: Result Comment: ARTUR MIN D STATUS 25(OH)VITAMIN D RANGE (ng/mL) Deficient <20 Insufficient 20 to <30 Sufficient 30 to 100 Reference: Sherrill MF,Cyndi NC, Elvia LOPEZ, et al. Evaluation,treatment, and prevention of vitamin D deficiency; an Endocrine Society clinical practice guideline. JCEM. 2010; 96(7):1911-30. PERFORMED BY: [place] [address] PATHOLOGIST SUPERVISOR [employer] STUART SIGALA M.D. Performed By: #### B MP, CBC, PHOS, BNP, HS TROP, MG #### [address] Vitamin D+Metabolites [Mass/ volume] in Serum or PlasmaOrdered By: Dominick Pickens on 04-16-2023 Vitamin D+Metabolites [Mass/Vol] 34.7 ng/mL 30-100 [facility] Comment on above: VITAMIN D STATUS 25( OH)VITAMIN D RANGE (ng/mL) Deficient <20 Insufficient 20 to <30Sufficient 30 to 100Reference: Sherrill MF,Cyndi WALLACE, Elvia LOPEZ, et al. Evaluation,treatment, and prevention of vitamin D deficiency; an Endocrine Society clinical practice guideline. JCEM. 2010; 96(7):1911-30. WBC Auto (Bld) [#/Vol]Ordere d By: Dominick Pickens on 04-16-2023 WBC (Bld) [#/Vol] 7.8 10*3/uL 4.1-10.5 [facility] B-Type Natriuretic Peptideon 03-26-2023 Natriuretic peptide B (Bld) [Mass/Vol] 9.0 pg/mL Normal 5-100 [facility] Comment on above: Result Comment: PERF ORMED BY: [place] [address] PATHOLOGIST SUPERVIS[employer] STUART SIGALA M.D. Performed By: #### B MP, CBC, PHOS, BNP, HS TROP, MG #### [address] Basic Metabolic Panelon 03-15 Anion gap [Moles/Vol] 8.6 mmol/L Normal 6.0-15.0 [facility] Comment on above: Performed By: #### B MP, CBC, PHOS, BNP, HS TROP, MG #### [address] Calcium [Mass/Vol] 9.2 mg/dL Normal 8.6-10.3 [facility] Comment on above: Performed By: #### B MP, CBC, PHOS, BNP, HS TROP, MG #### [address] Chloride [Moles/Vol] 106 mmol/L Normal 98-107 [facility] Comment on above: Performed By: #### B MP, CBC, PHOS, BNP, HS TROP, MG #### [facility] [address] CO2 [Moles/Vol] 28.4 mmol/L Normal 21.0-31.0 [facility] Comment on above: Performed By: #### B MP, CBC, PHOS, BNP, HS TROP, MG #### [facility] [address] Creatinine [Mass/Vol] 0.98 mg/dL Normal 0.70-1.30 [facility] Comment on above: Performed By: #### B MP, CBC, PHOS, BNP, HS TROP, MG #### [place] [address] [place] Creatinine Clr Calc Pharmacy 107.58 Normal [facility] Comment on above: Performed By: #### B MP, CBC, PHOS, BNP, HS TROP, MG #### [place] [address] [place] GFR/1.73 sq M.predicted MDRD (S/P/Bld) [Vol rate/Area] mL/min/{1.73_m2} Normal [facility] Comment on above: Performed By: #### B MP, CBC, PHOS, BNP, HS TROP, MG #### [address] Glucose [Mass/Vol] 100 mg/dL Normal 70-100 [facility] Comment on above: Result Comment: [facility] Glucose Reference Range is dependent on time and content of last meal. Glucose of more than 200 mg/dL in a nonstressed, ambulatory subject supports the diagnosis of Diabetes Mellitus. ADA recommended reference range Performed By: #### B MP, CBC, PHOS, BNP, HS TROP, MG #### [address] Potassium [Moles/Vol] 4.0 mmol/L Normal 3.5-5.1 [facility] Comment on above: Performed By: #### B MP, CBC, PHOS, BNP, HS TROP, MG #### [place] [address] [place] Sodium [Moles/Vol] 139 mmol/L Normal 136-145 [facility] Comment on above: Performed By: #### B MP, CBC, PHOS, BNP, HS TROP, MG #### [facility] [address] Urea nitrogen [Mass/Vol] 17 mg/dL Normal 7-25 [facility] Comment on above: Performed By: #### B MP, CBC, PHOS, BNP, HS TROP, MG #### [facility] [address] Basophils Auto (Bld) [#/Vol] Ordered By: Dominick Herbert on 03-26-2023 Basophils (Bld) [#/Vol] 0.1 10*3/uL 0.0-0.2 [facility] Basophils/100 WBC Auto (Bld) Ordered By: Dominick Herbert on 03-26-2023 Basophils/100 WBC (Bld) 0.9 % . [facility] Calcium [Mass/volume] in Ser um or PlasmaOrdered By: Dominick Herbert on 03-26-2023 Calcium [Mass/Vol] 9.2 mg/dL 8.6-10.3 [facility] Carbon dioxide, total [Moles /volume] in Serum or PlasmaOrdered By: Dominick Herbert on 03-26-2023 CO2 [Moles/Vol] 28.4 mmol/L 21.0-31.0 [facility] Chloride [Moles/volume] in S isiah or PlasmaOrdered By: Dominick Herbert on 03-26-2023 Chloride [Moles/Vol] 106 mmol/L 98-107 [facility] Complete Blood Count Auto Di ffon 03-26-2023 Basophils (Bld) [#/Vol] 0.1 10*3/uL Normal 0.0-0.2 [facility] Comment on above: Result Comment: PERF ORMED BY: [place] [address] PATHOLOGIST SUPERVISOR [employer] STUART SIGALA M.D. Performed By: #### B MP, CBC, PHOS, BNP, HS TROP, MG #### [address] Basophils/100 WBC (Bld) 0.9 % Normal . [facility] Comment on above: Performed By: #### B MP, CBC, PHOS, BNP, HS TROP, MG #### [address] Eosinophils (Bld) [#/Vol] 0.1 10*3/uL Normal 0.0-0.45 [facility] Comment on above: Performed By: #### B MP, CBC, PHOS, BNP, HS TROP, MG #### [address] Eosinophils/100 WBC (Bld) 1.2 % Normal . [facility] Comment on above: Performed By: #### B MP, CBC, PHOS, BNP, HS TROP, MG #### [address] Erythrocyte distribution width (RBC) [Ratio] 13.3 % Normal 12.0-14.8 [facility] Comment on above: Performed By: #### B MP, CBC, PHOS, BNP, HS TROP, MG #### [address] Hematocrit (Bld) [Volume fraction] 46.3 % Normal 38.8-50.0 [facility] Comment on above: Performed By: #### B MP, CBC, PHOS, BNP, HS TROP, MG #### [address] Hemoglobin (Bld) [Mass/Vol] 16.0 g/dL Normal 13.0-17.0 [facility] Comment on above: Performed By: #### B MP, CBC, PHOS, BNP, HS TROP, MG #### [address] Lymphocytes (Bld) [#/Vol] 2.6 10*3/uL Normal 1.00-4.8 [facility] Comment on above: Performed By: #### B MP, CBC, PHOS, BNP, HS TROP, MG #### [address] Lymphocytes/100 WBC (Bld) 26.4 % Normal . [facility] Comment on above: Performed By: #### B MP, CBC, PHOS, BNP, HS TROP, MG #### [address] MCH (RBC) [Entitic mass] 32.4 pg Normal 27.5-35.2 [facility] Comment on above: Performed By: #### B MP, CBC, PHOS, BNP, HS TROP, MG #### [address] MCV (RBC) [Entitic vol] 93.8 fL Normal 83.5-101 [facility] Comment on above: Performed By: #### B MP, CBC, PHOS, BNP, HS TROP, MG #### [address] Mean Corpuscular HGB Conc 34.5 g/dL Normal 32.5-35.6 [facility] Comment on above: Performed By: #### B MP, CBC, PHOS, BNP, HS TROP, MG #### [address] Monocytes (Bld) [#/Vol] 0.6 10*3/uL Normal 0.0-0.8 [facility] Comment on above: Performed By: #### B MP, CBC, PHOS, BNP, HS TROP, MG #### [address] Monocytes/100 WBC (Bld) 17.41 % Normal 0.00-20.00 [facility] Comment on above: Performed By: #### B MP, CBC, PHOS, BNP, HS TROP, MG #### [address] Monocytes/100 WBC (Bld) 6.1 % Normal . [facility] Comment on above: Performed By: #### B MP, CBC, PHOS, BNP, HS TROP, MG #### [address] Neutrophils (Bld) [#/Vol] 6.5 10*3/uL Normal 1.8-7.7 [facility] Comment on above: Performed By: #### B MP, CBC, PHOS, BNP, HS TROP, MG #### [address] Neutrophils/100 WBC (Bld) 65.4 % Normal . [facility] Comment on above: Performed By: #### B MP, CBC, PHOS, BNP, HS TROP, MG #### [address] NRBC% 0.0 /100{WBC} Normal 0-0.5 [facility] Comment on above: Performed By: #### B MP, CBC, PHOS, BNP, HS TROP, MG #### [address] Platelet mean volume (Bld) [Entitic vol] 9.0 fL Normal 6.6-10.1 [facility] Comment on above: Performed By: #### B MP, CBC, PHOS, BNP, HS TROP, MG #### [address] Platelets (Bld) [#/Vol] 220 10*3/uL Normal 150-450 [facility] Comment on above: Performed By: #### B MP, CBC, PHOS, BNP, HS TROP, MG #### [address] RBC (Bld) [#/Vol] 4.94 10*6/uL Normal 3.90-5.60 [facility] Comment on above: Performed By: #### B MP, CBC, PHOS, BNP, HS TROP, MG #### [address] WBC (Bld) [#/Vol] 9.9 10*3/uL Normal 4.1-10.5 [facility] Comment on above: Performed By: #### B MP, CBC, PHOS, BNP, HS TROP, MG #### [facility] [address] [place] [id number] [facility] Creatinine [Mass/volume] in Serum or PlasmaOrdered By: Dominick Herbert on 03-26-2023 Creatinine [Mass/Vol] 0.98 mg/dL 0.70-1.30 [facility] ECG 12 lead ECGon 03-26-2023 ECG 12 lead ECG [facility] [place] [address] [place] [address] Electrocardiograph Report Signed Patient: Katelynn Burdick MR#: [id number] 1 : 1975 Acct:[id number] Age/Sex: 47 / M ADM Date: 03/26/23 [...] 440 ms Normal sinus rhythm Confirmed by Dominick Herbert DO ([id number]) on 03/26/2023 6:27:27 PM Referred By: Electronically Signed By:Dominick Herbert DO Transcribed By: MUS Signed By Dominick Herbert DO [id number] Normal [facility] Eosinophils Auto (Bld) [#/Vo l]Ordered By: Dominick Herbert on 03-26-2023 Eosinophils (Bld) [#/Vol] 0.1 10*3/uL 0.0-0.45 [facility] Eosinophils/100 WBC Auto (Bl d)Ordered By: Dominick Herbert on 03-26-2023 Eosinophils/100 WBC (Bld) 1.2 % . [facility] Erythrocyte distribution wid th Auto (RBC) [Ratio]Ordered By: Dominick Herbert on 03-26-2023 Erythrocyte distribution width (RBC) [Ratio] 13.3 % 12.0-14.8 [facility] Glucose [Mass/volume] in Ser um or PlasmaOrdered By: Dominick Herbert on 03-26-2023 Glucose [Mass/Vol] 100 mg/dL 70-100 [facility] Comment on above: ADA recommended refe rence rangeRandom Glucose Reference Range is dependent on time and content of last meal. Glucose of more than 200 mg/dL in a nonstressed, ambulatory subject supports the diagnosis of Diabetes Mellitus. Hematocrit Auto (Bld) [Volum e fraction]Ordered By: Dominick Herbert on 03-26-2023 Hematocrit (Bld) [Volume fraction] 46.3 % 38.8-50.0 [facility] Hemoglobin [Mass/volume] in BloodOrdered By: Dominick Herbert on 03-26-2023 Hemoglobin (Bld) [Mass/Vol] 16.0 g/dL 13.0-17.0 [facility] Leukocytes [#/volume] correc lolis for nucleated erythrocytes in Blood by Automated counOrdered By: Dominick Herbert on 03-26-2023 WBC corrected for nucl RBC Auto (Bld) [#/Vol] 9.9 10*3/uL 4.1-10.5 [facility] Lymphocytes Auto (Bld) [#/Vo l]Ordered By: Dominick Herbert on 03-26-2023 Lymphocytes (Bld) [#/Vol] 2.6 10*3/uL 1.00-4.8 [facility] Lymphocytes/100 WBC Auto (Bl d)Ordered By: Dominick Herbert on 03-26-2023 Lymphocytes/100 WBC (Bld) 26.4 % . [facility] MCH Auto (RBC) [Entitic mass ]Ordered By: Dominick Herbert on 03-26-2023 MCH (RBC) [Entitic mass] 32.4 pg 27.5-35.2 [facility] MCHC Auto (RBC) [Mass/Vol]Or dered By: Dominick Herbert on 03-26-2023 MCHC (RBC) [Mass/Vol] 34.5 g/dL 32.5-35.6 [facility] MCV Auto (RBC) [Entitic vol] Ordered By: Dominick Herbert on 03-26-2023 MCV (RBC) [Entitic vol] 93.8 fL 83.5-101 [facility] Magnesiumon 03-26-2023 Magnesium [Mass/Vol] 2.1 mg/dL Normal 1.9-2.7 [facility] Comment on above: Result Comment: PERF ORMED BY: [facility] [address] [place] [address] PATHOLOGIST SUPERVIS[employer] STUART SIGALA M.D. Performed By: #### B MP, CBC, PHOS, BNP, HS TROP, MG #### [facility] [address] [place] [id number] [facility] Magnesium [Mass/volume] in S isiah or PlasmaOrdered By: Dominick Herbert on 03-26-2023 Magnesium [Mass/Vol] 2.1 mg/dL 1.9-2.7 [facility] Monocyte distribution width [Entitic volume] in Blood by AutomatedOrdered By: Dominick Herbert on 03-26-2023 Monocyte distribution width Auto (Bld) [Entitic vol] 17.41 % 0.00-20.00 [facility] Monocytes Auto (Bld) [#/Vol] Ordered By: Dominick Herbert on 03-26-2023 Monocytes (Bld) [#/Vol] 0.6 10*3/uL 0.0-0.8 [facility] Monocytes/100 WBC Auto (Bld) Ordered By: Dominick Herbert on 03-26-2023 Monocytes/100 WBC (Bld) 6.1 % . [facility] Natriuretic peptide B [Mass/ Vol]Ordered By: Dominick Herbert on 03-26-2023 Natriuretic peptide B (Bld) [Mass/Vol] 9.0 pg/mL 5-100 [facility] Neutrophils Auto (Bld) [#/Vo l]Ordered By: Dominick Herbert on 03-26-2023 Neutrophils (Bld) [#/Vol] 6.5 10*3/uL 1.8-7.7 [facility] Neutrophils/100 WBC Auto (Bl d)Ordered By: Dominick Herbert on 03-26-2023 Neutrophils/100 WBC (Bld) 65.4 % . [facility] No Panel InformationOrdered By: Dominick Herbert on 03-26-2023 Estimated GFR (CKD-EPI) > 60.0 mL/Min [facility] Creatinine Clearance (Chem 107.58 [facility] Nucleated erythrocytes [Pres ence] in Blood by Automated countOrdered By: Dominick Herbert on 03-26-2023 Nucleated RBC Auto Ql (Bld) 0.0 /100{WBC} 0-0.5 [facility] Phosphate [Mass/volume] in S isiah or PlasmaOrdered By: Dominick Herbert on 03-26-2023 Phosphate [Mass/Vol] 3.3 mg/dL 3.7-7.2 [facility] Phosphoruson 03-26-2023 Phosphate [Mass/Vol] 3.3 mg/dL Low 3.7-7.2 [facility] Comment on above: Performed By: #### B MP, CBC, PHOS, BNP, HS TROP, MG #### [facility] [address] Platelet mean volume Auto (B ld) [Entitic vol]Ordered By: Dominick Herbert on 03-26-2023 Platelet mean volume (Bld) [Entitic vol] 9.0 fL 6.6-10.1 [facility] Platelets Auto (Bld) [#/Vol] Ordered By: Dominick Herbert on 03-26-2023 Platelets (Bld) [#/Vol] 220 10*3/uL 150-450 [facility] Potassium [Moles/volume] in Serum or PlasmaOrdered By: Dominick Herbert on 03-26-2023 Potassium [Moles/Vol] 4.0 mmol/L 3.5-5.1 [facility] RBC Auto (Bld) [#/Vol]Ordere d By: Dominick Herbert on 03-26-2023 RBC (Bld) [#/Vol] 4.94 10*6/uL 3.90-5.60 [facility] Serum or plasma anion gap de terminationOrdered By: Dominick Herbert on 03-26-2023 Anion gap [Moles/Vol] 8.6 mmol/L 6.0-15.0 [facility] Sodium [Moles/volume] in Ser um or PlasmaOrdered By: Dominick Herbert on 03-26-2023 Sodium [Moles/Vol] 139 mmol/L 136-145 [facility] Troponin I High Sensitivityo n 03-26-2023 Troponin I High Sensitivity 7.6 pg/mL Normal 0.0-20.0 [facility] Comment on above: Result Comment: PERF ORMED BY: [place] [address] PATHOLOGIST SUPER[employer] STUART SIGALA M.D. Performed By: #### B MP, CBC, PHOS, BNP, HS TROP, MG #### [address] Troponin I.cardiac [Mass/vol ume] in Serum or Plasma by Detection limit <= 0.01 ng/Ordered By: Dominick Herbert on 03-26-2023 Troponin I.cardiac DL <= 0.01 ng/mL [Mass/Vol] 7.6 pg/mL 0.0-20.0 [facility] Urea nitrogen [Mass/volume] in Serum or PlasmaOrdered By: Dominick Herbert on 03-26-2023 Urea nitrogen [Mass/Vol] 17 mg/dL 7-25 [facility] WBC Auto (Bld) [#/Vol]Ordere d By: Dominick Herbert on 03-26-2023 WBC (Bld) [#/Vol] 9.9 10*3/uL 4.1-10.5 [facility] XR chest 1V portableon 03-26 XR chest 1V portable [facility] [place] [address] [place] [address] XRay Report Signed Patient: Katelynn Burdick MR#: [id number] 1 : 1975 Acct:[id number] Age/Sex: 47 / M ADM Date: 03/26/23 [...] Alejandra Ivory M.D.03/26/2023 6:27 PM Dictation Location: [place] [address] Transcribed By: [facility] 03/26/231826 Dictated By: Alejandra Ivory MD 03/26/231825 Signed By: 03/26/231826 Normal [facility] CORONAVIRUS 2019 BY PCRon SARS-CoV-2 (COVID-19) RNA ROBBIE+probe Ql (Unsp spec) Detected Abnormal Not Detected [facility] Comment on above: Result Comment: [...] this test method. Fact sheet for providers: https://www.fda.gov/media/902156/download Fact sheet for patients: https://www.fda.gov/media/676122/download This test has received FDA Emergency Use Authorization [EUA] and has been verified by [facility] ([facility]). This test is only authorized for the duration of time that circumstances exist to justify the authorization of the emergency use of in vitro diagnostic tests for the detection of SARS-CoV-2 virus and/or diagnosis of COVID-19 infection under section 564(b)(1) of the Act, 21 U.S.C. 360bbb-3(b)(1), unless the authorization is terminated or revoked sooner. [facility] is certified under CLIA-88 as qualified to perform high complexity testing. Testing is performed in the [facility] laboratories located at [address] [place] [address]. Performed By: #### C OV19 #### [facility] [address] [place] [address] Covid 19 Resultson 2 SARS-CoV-2 (COVID-19) RNA [...] You may also be contacted by the [facility] [facility] [place] [facility] to see if any of your [...] or Naproxen (Aleve) can also be used. Lbqq-leb-tpbpjpa cough and cold medicines can be used according to the instructions on the package. Some bkrd-otz-feiflta medicines also contain acetaminophen. Make sure you [...] water are not available, use alcohol-based hand fitness teacher. Avoid touching your eyes, nose, and mouth [...] 24 anum (more content not included)... Normal [facility] CORONAVIRUS 2019 BY PCRon Lab Specimen Source Nasal, Nasopharyngeal Normal [facility] Comment on above: Performed By: #### C OV19 #### [facility] [address] [place] [address] Coronavirus 2019 RNA by PCR, Symptomaticon 03-18-2022 Coronavirus 2019 RNA by PCR, Symptomatic Detected Abnormal See Below [facility] Work Phone: Comment on above: SOURCE: Nasal, [...] this test method. Fact sheet for providers: https://www.fda.gov/media/920688/downloadFact sheet for patients: https://www.fda.gov/media/182862/downloadThis test has received FDA Emergency Use Authorization [EUA] and has been verified by [facility] ([facility]). This test is only authorized for the duration of time that circumstances exist to justify the authorization of the emergency use of in vitro diagnostic tests for the detection of SARS-CoV-2 virus and/or diagnosis of COVID-19 infection under section 564(b)(1) of the Act, 21 U.S.C. 360bbb-3(b)(1), unless the authorization is terminated or revoked sooner. [facility] is certified under CLIA-88 as qualified to perform high complexity testing. Testing is performed in the [facility] laboratories located at [address] [place] [address]. Office Visit (Urgent Care)on 03-18-2022 Follow-up visit [...] presents for COVID-19 testing. He works for [employer]. He resents with a 1 day history [...] AM Vitals Vital Signs Recorded: 18Mar2022 11:31AM Dzkkcqwajrd99.1 F, Temporal Heart Rate89 Ztchypsqnxm71 Respiration QualityNormal Nespemge669, Sitting Hjgcvryxu05, Sitting Blood Pressure Cuff SizeAdult Height6 ft 1 in Lmudkr734 lb BMI Zpmacdunrt76.78 kg/m2 BSA Calculated2.17 Tobacco Useb) No Falls Screening (Age 18+)a) No falls within the last year O2 Hjstowdpcp27, RA Pain Scale0 PHQ-9 #1. Little interest [...] Mar 18 2022 12:23PM EST (Author) Normal [facility] 03-18-2022 Fall risk assessment a) No falls within the last year [facility] Work Phone: Tobacco use status [facility] b) No [facility] Work Phone: Respiration Normal [facility] Work Phone: Respiration Adult [facility] Work Phone: Respiration 0-Not at all [facility] Work Phone: Vital Signs Date Time Vital Sign Value Performing Clinician Facility 12-08-2023 09:35-0400 Diastolic blood pressure 75 mm[Hg] DO Dominick Petznick Work Phone: 4(253)552-235417 [address] 12-08-2023 09:35-0400 Heart rate 63 /min DO Dominick Petznick Work Phone: 2(395)042-123317 [place] [address] 12-08-2023 09:35-0400 Respiratory rate 16 /min DO Dominick Petznick Work Phone: 5(736)261-767517 [place] [address] 12-08-2023 09:35-0400 SaO2% (BldA) [Mass fraction] 97 % DO Dominick Petznick Work Phone: 6(895)428-375617 [place] [address] 12-08-2023 09:35-0400 Systolic blood pressure 110 mm[Hg] DO Dominick Petznick Work Phone: 7(264)944-099517 [place] [address] 12-08-2023 07:55-0400 Body height 185.42 cm DO Dominick Petznick Work Phone: 5(904)864-483117 [place] [address] 12-08-2023 07:55-0400 Body weight 83.91 kg DO Dominick Petznick Work Phone: 0(802)924-148117 [place] [address] 03-26-2023 19:00-0400 Diastolic blood pressure 87 mm[Hg] DO Dominick Petznick Work Phone: 3(518)323-775417 [place] [address] 03-26-2023 19:00-0400 Heart rate 72 /min DO Dominick Petznick Work Phone: 4(475)288-653217 [address] 03-26-2023 19:00-0400 Respiratory rate 18 /min DO Dominick Petznick Work Phone: 2(976)519-355617 [place] [address] 03-26-2023 19:00-0400 SaO2% (BldA) [Mass fraction] 94 % DO Dominick Petznick Work Phone: 9(463)172-548417 [address] 03-26-2023 19:00-0400 Systolic blood pressure 121 mm[Hg] DO Dominick Petznick Work Phone: 7(130)531-953617 [address] 03-26-2023 17:35-0400 Body height 185.42 cm DO Dominick Mongeznick Work Phone: [facility] 03-26-2023 17:35-0400 Body temperature 98.2 [degF] DO Dominick Mongeznick Work Phone: [facility] 03-26-2023 17:35-0400 Body weight 92.15 kg DO Dominick Mongeznick Work Phone: [facility] 03-18-2022 11:31-0400 Body height 185.42 cm Dominick Damon Petznick Work Phone: [facility] Work Phone: 03-18-2022 11:31-0400 Body mass index (BMI) [Ratio] 26.78 kg/m2 Dominick Mongeznick Work Phone: [facility] Work Phone: 03-18-2022 11:31-0400 Body surface area Derived from formula 2.17 m2 Dominick Mongeznick Work Phone: [facility] Work Phone: 03-18-2022 11:31-0400 Body temperature 98.1 [degF] Dominick Mongeznick Work Phone: [facility] Work Phone: 03-18-2022 11:31-0400 Body weight 92.08 kg Dominick Monegznick Work Phone: [facility] Work Phone: 03-18-2022 11:31-0400 Diastolic blood pressure 69 mm[Hg] Dominick Mongeznick Work Phone: [facility] Work Phone: 03-18-2022 11:31-0400 Heart rate 89 /min Dominick Damon Petznick Work Phone: [facility] Work Phone: 03-18-2022 11:31-0400 Respiratory rate 20 /min Dominick C Petznick Work Phone: [facility] Work Phone: 03-18-2022 11:31-0400 SaO2% (BldA) [Mass fraction] 98 % Domiinck C Petznick Work Phone: [facility] Work Phone: 03-18-2022 11:31-0400 Systolic blood pressure 126 mm[Hg] Dominick C Petznick Work Phone: [facility] Work Phone: 03-18-2022 11:31-0400 0 1 Dominick C Petznick Work Phone: [facility] Work Phone: Comment on above: [employer] Encounters Encounter Date Encounter Type Care Provider Facility Start: 05-01-2024 End: 05-01-2024 ambulatory DOMINICK C PETZNICK Not Available Start: 04-23-2024 End: 04-23-2024 ambulatory DOMINICK C PETZNICK Not Available Start: 12-08-2023 End: 12-08-2023 ambulatory Dominick Petznick Facility:[facility] Start: 12-08-2023 Non-patient / Non-visit DO Dominick Petznick Work Phone: [facility] Work Phone: Start: 12-08-2023 End: 12-08-2023 Admission to same day surgery center DO Dominick Petznick Work Phone: [facility] Work Phone: Start: 12-08-2023 End: 12-08-2023 ambulatory DO Dominick Petznick Work Phone: [facility] Work Phone: Start: 04-30-2023 End: 04-30-2023 ambulatory Dominick Petznick Facility:[facility] Start: 04-30-2023 End: 04-30-2023 ambulatory DO Dominick Grahamick Work Phone: [facility] Work Phone: Start: 04-30-2023 End: 04-30-2023 Patient encounter procedure DO Dominick Pickens Work Phone: [facility] [place] Work Phone: Start: 04-23-2023 End: 04-23-2023 ambulatory DO Dominick Grahamick Work Phone: [facility] Work Phone: Start: 04-23-2023 End: 04-23-2023 Patient encounter procedure DO Dominick Mongeznick Work Phone: [facility] [place] Work Phone: Start: 04-16-2023 End: 04-16-2023 ambulatory Dominick Pickens Facility:[facility] Start: 04-16-2023 End: 04-16-2023 Patient encounter procedure DO Dominick Grahamick Work Phone: [facility] [place] Work Phone: Start: 03-26-2023 End: 03-26-2023 Emergency department patient visit Dominick Pickens Facility:[facility] Start: 03-26-2023 End: 03-26-2023 Emergency department patient visit DO Dominick Pickens Work Phone: [facility] Work Phone: Start: 03-19-2022 Chart Update Dominick aldana Work Phone: [facility] Work Phone: Start: 03-18-2022 Adv care pln tlkd & alt dcsn maker docd Dominick Mongechandler Work Phone: [facility] Work Phone: Start: 03-18-[address] Ladi Arcos Facility:[id number] Procedures Date Procedure Procedure Detail Performing Clinician Start: 12-08-2023 Screening colonoscopy D O Dominick Ralph Work Phone: Start: 03-26-2023 Plain chest X-ray DO Ma herrera Ralph Work Phone: Plan of Treatment Date Care Activity Detail Author Start: 12-08-2023 [facility] Patient Education [facility] Work Phone: Patient referral [facility] Work Phone: Payers Date Payer Category Payer Self-pay 2023 Unknown [id number] 2022 Unknown [id number] 1975 Unknown [id number] 1975 Unknown [id number] 1975 Unknown [id number] Unknown [employer] Unknown [id number] Unknown [id number] Unknown [id number] Unknown [id number] Social History Date Type Detail Facility Start: 03-26-2023 End: 12-08-2023 Tobacco smoking status NHIS Smoker (finding) [facility] Start: 1975 Sex Assigned At Male F [facility] Goals Date Patient Goal Desired Activity /State Procedure note 12-08-2023 Note Date & Type Note Facility 12-08-2023 Procedure note [facility] Evaluation note Note Date & Type Note Facility Evaluation note No assessment information availa antony [facility] Work Phone: History and physical note Note Date & Type Note Facility History and physical note Note Date/Time December 08, 2023 8:4 6am [facility] [address] [place] [address] Gastroenterology H&P Signed Patient: Katelynn Burdick MR#: [id number] : 1975 Acct:[id number] Age/Sex: 48 / M Adm Date: 4 Loc: Room: Type: [facility] Attending Dr: Martin Jacobo MD Copies to: MD Dominick Gabriel, DO~ Date of Service: 12/08/2023 HISTORY & [...] By: <Electronically signed by Martin Jacobo MD> 12/08/23 0846 [facility] Work Phone: History of Present illness Narrative Note Date & Type Note Facility History of Present illness Narrative Patient is a 46-year-old male who presents for COVID-19 testing. He works for [employer]. He resents with a 1 day history [...] no arthralgias and myalgias.Neurological: + headache. [facility] Work Phone: Chief Complaint Duran/COVID Summary Purpose [...] section and content) DATE CREATED AUTHOR 03/19/2022 [place] DATE CREATED AUTHOR AUTHOR'S ORGANIZ ATION 03/20/2022 [facility] DATE CREATED AUTHOR AUTHOR'S ORGANIZ ATION [facility]20[facility] DATE CREATED AUTHOR AUTHOR'S ORGANIZ ATION 12/16/2023 [facility] DATE CREATED AUTHOR AUTHOR'S ORGANIZ ATION 05/03/2024 [facility] EPIC Care Teams (unrecognized sec tion and content) Team Status: Active Member Role Status Dates Dominick Pickens , DO Primary Care Provider Active Team Status: Inactive Member Role Status Dates Dominick Mongeikerandimple , DO Primary Care Provider Active oDminick Herbert , DO Emergency Provider Active Team Status: Inactive Member Role Status Dates Dominick Mongekierandimple , DO Primary Care Provider, Attending Provider Active Team Status: Inactive Member Role Status Dates Dominick Mongekierandimple , DO Primary Care Provider Active Start: December 08, 2023 End: December 08, 2023 Martin Jacobo MD Attending Provider Active S tart: December 08, 2023 End: December 08, 2023 Team Status: Active Member Role Status Dates Dominick Mongekierandimple , DO Primary Care Provider Active Start: [...] BE BASED ON THE PRIMARY CLINICAL RECORDS. [employer] [facility]. provides no warranty or guarantee of the accuracy or completeness of information in this document.
== END 2024-06-15 10:12 | disposition home or self-care (01) ==
LOC: EC 10:12
PROVIDERS: PCP Family Medicine; Visit Provider Orthopaedic Surgery Orthopaedic Surgery of the Spine
DX: Z47.89 Encounter for other orthopedic aftercare (principal); M54.2 Cervicalgia
CPT/HCPCS: 72040

== ENCOUNTER 2024-08-03 09:49 | Outpatient (OUT) | payer OTHER, SELFPAY ==
--- NOTE | 2024-08-03 | XR_ITS ---
The [address] [address] Patient Name: KATELYNN VANEGAS MRN: [id number] date: 1975 Sex: M Assigned Patient Location: Current Patient Location: Accession/Order Number: [id number] Exam Date: 08/03/2024 09:51 Report Date: 08/04/2024 07:23 At the request of: DOLLY BYRD Procedure: XR cervical spine 2-3V EXAMINATION: XR cervical spine 2-3V HISTORY: CERVICAL SPINE PAIN COMPARISON: XR cervical spine 06/15/2024 FINDINGS: BONES: Straightening of the normal lordotic curvature; positioning versus muscle spasm. Intervertebral disc spacer placement and anterior fusion of C3-C4. Anterior plate and screws fusing C5-C6-C7. Normal height and alignment of the vertebral bodies. Minimal degenerative facet arthropathy. DISC SPACES: Interval vertebral disc spacer at C3-C4, C5-C6, C6-C7-C7. No significant disc space narrowing. PARASPINOUS: Negative. No paraspinous abnormality is seen. OTHER: Negative. XR/XR cervical spine 2-3V IMPRESSION: 1. Stable surgical changes without hardware failure or change in alignment. 2. No appreciable change. Electronically authenticated by: BRYCE GARCIA Date: 08/04/2024 07:23
--- OUTSIDE RECORDS SUMMARY | 2024-08-03 10:05 | XMS_ITS | CCD ---
Author Organization [facility] Care Team Providers Care Negotiations Director Name Role Phone Dominick Pickens Unavailable [phone] Ladi Arcos Attending UnavailDr. Dominick Chavira Primary Care Un available DO Dominick Pickens Primary Care Provider DO Dominick Herbert Emergency Provider UnavaDO Dominick David Attending Provider DO Dominick Pickens Primary Care Provider MD Martin Jacobo Attending Provider [phone] Dominick Pickens Primary Care Unavailable Dominick Herbert Admitting Unavailable Dominick Herbert Attending Unavailable Ralph, Dominick Primary Care Unavailable Dominick Pickens Attending Unavailable Dominick Pickens Admitting Unavailable Dominick Pickens Primary Care Unavailable Dominick Pickens Attending Unavailable Dominick Pickens Admitting Unavailable Dominick Pickens Primary Care Unavailable Martin Jacobo Admitting Unavailable Martin Jacobo Attending Unavailable Dominick Pickens DO Primary Care Provider Dominick Pickens DO Unavailable DOMINICK PICKENS Attending Unavailable DOMINICK PICKENS Attending Unavailable NICK COLLIER Attending Unavailable Medications Current Medications Medication Drug Class(es) Dates Sig (Normalized) Sig (Original) cetirizine hydrochloride 10 mg oral tablet (11 sources) Histamine-1 Receptor Antagonist Start: 03-26-2023 take 1 tablet by mouth once daily Cetirizine (Zyrtec) 10 mg Tablet Active 10 MG PO Daily March 26, 2023 12:00am cholecalciferol 0.025 mg oral capsule (3 sources) Vitamin D Start: 12-08-2023 take 25 ug by mouth once daily Cholecalciferol (Vitamin D3) Active 25 MCG PO Daily December 08, 2023 12:00am End: 04-23-2024 take 1 capsule by mouth in the morning cholecalciferol (Vitamin D-3) 25 MCG (1000 UT) capsule Take 1,000 Units by mouth in the morning. 04/23/2024 Discontinued (Therapy completed) gabapentin 100 mg oral capsule (7 sources) Anti-epileptic Agent Start: 03-26-2024 take 2 capsules by mouth in the morning gabapentin (Neurontin) 100 MG capsule Take 200 mg by mouth in the morning and 200 mg before bedtime. 03/26/2024 Active Start: 03-26-2024 take 1 capsule by mo uth in the morning, then take 1 capsule by mouth in the evening, then take 1 capsule by mouth at bedtime gabapentin (Neurontin) 100 MG capsule Take 100 mg by mouth in the morning and 100 mg in the evening and 100 mg before bedtime. 03/26/2024 Active glucosamine sulfate 500 mg oral tablet (3 sources) Start: 12-08-2023 take 1 tablet by mouth once daily Glucosamine Sulfate (Glucosamine) 500 mg tablet Active 500 MG PO Daily December 08, 2023 12:00am administer with a meal End: 04-23-2024 Glucosamine 500 MG capsule 1 (one) time each day at the same time. 04/23/2024 Discontinued (Therapy completed) methocarbamol 500 mg oral tablet (7 sources) Muscle Relaxant Start: 04-06-2024 End: 05-06-2024 take 1 tablet by mouth twice daily as needed methocarbamol (Robaxin) 500 MG tablet Take 500 mg by mouth 2 (two) times a day as needed 04/06/2024 Active Start: 04-06-2024 End: 05-06-2024 take 1 tablet by mouth every eight hours as needed for pain methocarbamol (Robaxin) 500 MG tablet 1 orally Every 8 hours prn pain for 30 days 04/06/2024 05/06/2024 Active Multivitamin (Daily Multi-Vitamin) tablet (1 source) Start: 12-08-2023 take 1 tablet by mouth once daily Multivitamin (Daily Multi-Vitamin) tablet Active 1 TAB PO Daily December 08, 2023 12:00am naproxen sodium 220 mg oral capsule (8 sources) Nonsteroidal Anti-inflammatory Drug Start: 12-08-2023 take 1 capsule by mouth once daily Naproxen Sodium (Aleve) 220 mg capsule Active 220 MG PO Daily December 08, 2023 12:00am naproxen sodium (Aleve) 220 MG tablet 1 (one) time each day at the same time. Active vitamin b12 1 mg oral capsule (3 sources) Vitamin B12 Start: 12-08-2023 take 1000 ug by mouth once daily Cyanocobalamin (Vitamin B-12) Active 1000 MCG PO Daily December 08, 2023 12:00am End: 04-23-2024 Cyanocobalamin (Vitamin B12) 1000 MCG tablet controlled-release 1 (one) time each day at the same time. 04/23/2024 Discontinued (Therapy completed) Completed/Discontinued Medications Medication Drug Class(es) Dates Sig (Normalized) Sig (Original) ALPRAZolam 0.25 mg oral tablet (2 sources) Benzodiazepine Start: 04-02-2024 End: 04-23-2024 take 1 tablet by mouth every hour ALPRAZolam (Xanax) 0.25 MG tablet TAKE 1 TAB BY MOUTH 1 HOUR PRIOR TO MRI.MAY REPEAT 1/2 HOUR PRIOR TO MRI IF NEEDED 04/02/2024 04/23/2024 Discontinued (Therapy completed) ascorbic acid 500 mg chewable tablet (2 sources) Vitamin C End: 04-23-2024 take 1 tablet by mouth in the morning ascorbic acid (Vitamin C) 500 MG tablet Take 500 mg by mouth in the morning. 04/23/2024 Discontinued (Therapy completed) calcium ascorbate 500 mg oral tablet (3 sources) Start: 12-08-2023 End: 04-23-2024 Calcium Ascorbate 500 MG tablet Daily 12/08/2023 04/23/2024 Discontinued (Therapy completed) calcium carbonate 500 mg oral tablet (2 sources) End: 04-23-2024 calcium carbonate (Os-Jose) 1250 (500 Ca) MG tablet every 12 (twelve) hours. 04/23/2024 Discontinued (Therapy completed) Clenpiq 10-3.5-12 MG-GM -GM/175ML solution (2 sources) Start: 10-19-2023 End: 04-23-2024 Clenpiq 10-3.5-12 MG-GM -GM/175ML solution TAKE 175 ML BY MOUTH FOR 1 DAY.FOLLOW INSTRUCTIONS PROVIDED BY DR JACOBO'S OFFICE. 10/19/2023 04/23/2024 Discontinued (Therapy completed) cyclobenzaprine hydrochloride 10 mg oral tablet (2 sources) Muscle Relaxant Start: 03-24-2024 End: 04-23-2024 cyclobenzaprine (Flexeril) 10 MG tablet TAKE 1 TABLET BY MOUTH TWICE DIALY NEEDED FOR MUSCLE SPASMS 03/24/2024 04/23/2024 Discontinued (Therapy completed) etodolac 400 mg oral tablet (2 sources) Nonsteroidal Anti-inflammatory Drug Start: 03-23-2024 End: 04-23-2024 take 1 tablet by mouth every eight hours as needed etodolac (Lodine) 400 MG tablet Take 400 mg by mouth every 8 (eight) hours if needed 03/23/2024 04/23/2024 Discontinued (Therapy completed) melatonin 10 mg oral capsule (2 sources) End: 04-23-2024 take 2 capsules by mouth at bedtime Melatonin 10 MG capsule 2 capsules Orally at bedtime 04/23/2024 Discontinued (Therapy completed) meloxicam 15 mg oral tablet (2 sources) Nonsteroidal Anti-inflammatory Drug Start: 05-31-2023 End: 04-23-2024 take 1 tablet by mouth once daily meloxicam (Mobic) 15 MG tablet Indications: Cervical radiculopathy at C5 Take 1 tablet (15 mg) by mouth once per day. 30 tablet 3 05/31/2023 04/23/2024 Discontinued (Therapy completed) Multiple Vitamin (MULTIVITAMINS PO) (2 sources) End: 04-23-2024 Multiple Vitamin (MULTIVITAMINS PO) as directed Orally 04/23/2024 Discontinued (Therapy completed) predniSONE 20 mg oral tablet (2 sources) Start: 03-24-2024 End: 04-23-2024 take 2 tablets by mouth once daily predniSONE (Deltasone) 20 MG tablet Take 40 mg by mouth Daily 03/24/2024 04/23/2024 Discontinued (Therapy completed) Sod Picosulf-Mag Ox-Citric Ac (1 source) Start: [...] Supplements Ac tive March 26, 2023 12:00am tiZANidine 2 mg oral tablet (2 sources) Central alpha-2 Adrenergic Agonist Start: 05-31-2023 End: 04-23-2024 take 1 tablet by mouth at bedtime tiZANidine (Zanaflex) 2 MG tablet Indications: Cervical radiculopathy at C5 Take 1 tablet (2 mg) by mouth at bedtime. 30 tablet 1 05/31/2023 04/23/2024 Discontinued (Therapy completed) varenicline 1 mg oral tablet (8 sources) Partial Cholinergic Nicotinic Agonist Start: 04-12-2023 End: 05-01-2024 take 1 tablet by mouth in the morning varenicline (Chantix) 1 MG tablet Indications: Tobacco abuse Take 1 tablet (1 mg) by mouth in the morning and 1 tablet (1 mg) before bedtime. Take with full glass of water.. 60 tablet 3 05/31/2023 04/23/2024 Discontinued (Therapy completed) Problems Active Problems Problem Classification Problem Date Documented Da te Episodic/Chronic Immunizations and screening for infectious disease (2 sources) Suspected disease caused by 2019-nCoV; Translations: [Contact with or exposure to other viral diseases] Episodic Malaise and fatigue (7 sources) Chronic fatigue syndrome; Translations: [Chronic fatigue syndrome] Onset: 04-12-2023 Resolved: 04-12-2023 04-12-2023 Chronic Other screening for suspected conditions (not mental disorders or infectious disease) (1 source) Encounter for screening for malignant neoplasm of colon; Translations: [Encounter for screening for malignant neoplasm of colon] Onset: 12-08-2023 Episodic Other skin disorders (2 sources) Epidermoid cyst; Translations: [Epidermal cyst] 06-19-2024 Episodic Other upper respiratory disease (7 sources) Allergic rhinitis; Translations: [Allergic rhinitis, unspecified] Onset: 04-12-2023 04-12-2023 Chronic Residual codes; unclassified (2 sources) Generalized aches and pains; Translations: [Pain, unspecified] 06-19-2024 Episodic Residual codes; unclassified (2 sources) Tobacco user; Translations: [Tobacco use] 05-01-2024 Episodic Spondylosis; intervertebral disc disorders; other back problems (4 sources) Cervical arthritis; Translations: [Spondylosis without myelopathy or radiculopathy, cervical region] 05-01-2024 Chronic Spondylosis; intervertebral disc disorders; other back problems (4 sources) Cervical radiculopathy; Translations: [Radiculopathy, cervical region] 05-01-2024 Episodic Unclassified (2 sources) Contact with and (suspected) exposure to COVID-19; Translations: [Contact with and (suspected) exposure to COVID-19] Onset: 03-18-2022 Unclassified (1 source) Encounter for general adult medical examination without abnormal findings; Translations: [Encounter for general adult medical examination without abnormal findings] Onset: 04-16-2023 Viral infection (2 sources) Verruca vulgaris; Translations: [Other viral warts] 06-19-2024 Episodic Past or Other Problems Problem Classification Problem Date Documented Da te Episodic/Chronic Acute and chronic tonsillitis (7 sources) Cryptic tonsil; Translations: [Other chronic diseases of tonsils and adenoids] Onset: 04-12-2023 Resolved: 04-12-2023 04-12-2023 Chronic Alcohol-related disorders (7 sources) Alcohol abuse; Translations: [Alcohol abuse, uncomplicated] Onset: 04-12-2023 Resolved: 04-23-2024 04-23-2024 Chronic Cardiac dysrhythmias (12 sources) Palpitations; Translations: [Palpitations] Onset: 03-26-2023 Resolved: 04-23-2024 03-26-2023 Episodic Essential hypertension (7 sources) Essential hypertension; Translations: [Essential (primary) hypertension] Onset: 04-12-2023 Resolved: 04-12-2023 04-12-2023 Chronic Other nutritional; endocrine; and metabolic disorders (11 sources) Hypophosphatemia; Translations: [Other disorders of phosphorus metabolism] Onset: 04-23-2024 Resolved: 04-23-2024 03-26-2023 Chronic Other upper respiratory infections (7 sources) Sinusitis; Translations: [Chronic sinusitis, unspecified] Onset: 04-12-2023 Resolved: 04-12-2023 04-12-2023 Chronic Results Test Name Value Interpretation Reference Range Facility No Panel InformationOrdered By: Dayanna Carlisle on 06-19-2024 [facility] William 12-08-2023 L Specimen: [id number] Received: 12/08/23 Status: KEAGAN Mayoroderick Num: [id number] Spec Type: Surgical Subm Dr: Martin Jacobo MD Tissues: A Colon Biopsy (DESC POLYP) B Colon Biopsy (SIGMOID POLYP) Procedures: HE/4, Gross/Micro L4/2 Age/ Patient Sex Location Account Attending Physician Katelynn Burdick 48/M [id number] Martin Jacobo MD SPEC NUM: [id number] RECD: 12/08/23 STATUS: KEAGAN MAYORoderick NUM: [id number] SRIRAM: 12/08/23 DR: Martin Jacobo MD ENTERED: 12/08/23 [facility] DR: SPEC TYPE: Surgical DEPT: [...] in B1. Clinical history screening TW Specimen: [id number] Received: 12/08/23 Status: KEAGAN Peoples Num: [id number] Spec Type: Surgical Subm Dr: Martin Jacobo MD Tissues: A Colon Biopsy (DESC POLYP) B Colon Biopsy (SIGMOID POLYP) Procedures: HE/Jadiel, Gross/Micro L4/2 Patient: Katelynn Burdick [id number] (Continued) Specimen: [id number] Received: 12/08/23 (Continued) Signed (signature on file) Theresa Oconnor MD 12/10/23 1313 Specimen: Received: 12/08/23 Status: KEAGAN Peoples Num: [id number] Spec Type: Surgical Subm Dr: Martin Jacobo MD Tissues: A Colon Biopsy (DESC POLYP) B Colon Biopsy (SIGMOID POLYP) Procedures: HE/4, Gross/Micro L4/2 Patient: HeavenlyKatelynn W [id number] (Continued) Specimen: [id number] Received: 12/08/23 (Continued) CPT Codes 94009U6 Specimen: [id number] Received: 12/08/23 Status: KEAGAN Peoples Num: [id number] Spec Type: Surgical Subm Dr: Martin Jacobo MD Tissues: A Colon Biopsy (DESC POLYP) B Colon Biopsy (SIGMOID POLYP) Procedures: HE/4, Gross/Micro L4/2 Patient: Katelynn Burdick [id number] (Continued) Signed (signature on file) Theresa Oconnor MD 12/10/23 1313 Normal [facility] Alanine aminotransferase [En zymatic activity/volume] in Serum or PlasmaOrdered By: Dominick Pickens on 04-16-2023 ALT [Catalytic activity/Vol] 26 U/L 7-52 [facility] Albumin [Mass/volume] in Ser um or Plasma by Bromocresol green (BCG) dye binding methoOrdered By: Dominick Pickens on 04-16-2023 Albumin BCG dye [Mass/Vol] 4.5 g/dL 3.5-5.7 [facility] Alkaline phosphatase [Enzyma tic activity/volume] in Serum or PlasmaOrdered By: Dominick Pickens on 04-16-2023 ALP [Catalytic activity/Vol] 61 U/L 34-104 [facility] Aspartate aminotransferase [ Enzymatic activity/volume] in Serum or PlasmaOrdered By: Dominick Pickens on 04-16-2023 AST [Catalytic activity/Vol] 18 U/L 13-39 [facility] Basophils Auto (Bld) [#/Vol] Ordered By: Dominick Pickens on 04-16-2023 Basophils (Bld) [#/Vol] 0.1 10*3/uL 0.0-0.2 [facility] Basophils/100 WBC Auto (Bld) Ordered By: Dominick Pickens on 04-16-2023 Basophils/100 WBC (Bld) 0.7 % . [facility] Bilirubin.total [Mass/volume ] in Serum or PlasmaOrdered By: Dominick Pickens on 04-16-2023 Bilirubin [Mass/Vol] 0.9 mg/dL 0.3-1.0 [facility] Calcium [Mass/volume] in Ser um or PlasmaOrdered By: Dominick Pickens on 04-16-2023 Calcium [Mass/Vol] 9.4 mg/dL 8.6-10.[address] [facility] Carbon dioxide, total [Moles /volume] in Serum or PlasmaOrdered By: Dominick Pickens on 04-16-2023 CO2 [Moles/Vol] 30.6 mmol/L 21.0-31.0 [facility] Chloride [Moles/volume] in S isiah or PlasmaOrdered By: Dominick Pickens on 04-16-2023 Chloride [Moles/Vol] 107 mmol/L 98-107 [facility] Cholesterol [Mass/volume] in Serum or PlasmaOrdered By: Dominick Pickens on 04-16-2023 Cholesterol [Mass/Vol] 187 mg/dL 140-200 [facility] Comment on above: Chol less than 200 m g/dl low riskChol 201-239 mg/dl borderline riskChol 240 mg/dl and greater high risk Cholesterol in LDL Calc [Mas s/Vol]Ordered By: Dominick Pickens on 04-16-2023 Cholesterol in LDL [Mass/Vol] 127 mg/dL 0-100 [facility] Comment on above: LDL ATP III CLASSIFI CATIONLDL less than 100 mg/dL OptimalLDL 100-129 mg/dL Near or above optimalLDL 130-159 mg/dL Borderline highLDL 160-189 mg/dL HighLDL greater than 189 mg/dL Very high Cholesterol in VLDL Calc [Ma ss/Vol]Ordered By: Dominick Pickens on 04-16-2023 Cholesterol in VLDL [Mass/Vol] 22 mg/dL [facility] Complete Blood Count Auto Di ffon 04-16-2023 Basophils (Bld) [#/Vol] 0.1 10*3/uL Normal 0.0-0.2 [facility] Comment on above: Result Comment: PERF ORMED BY: [place] [address] PATHOLOGIST ENROLLMENT NURSE STUART SIGALA M.D. Performed By: #### L IPID, PTH, CBC, CMP, PHOS, PSAS, TSH3, T4F, URMACRERAT, [id number], MG #### [address] #### CAION #### [facility] , Basophils/100 WBC (Bld) 0.7 % Normal . [facility] Comment on above: Performed By: #### L IPID, PTH, CBC, CMP, PHOS, PSAS, TSH3, T4F, URMACRERAT, [id number], MG #### [place] [address] [place] #### CAION #### [facility] , Eosinophils (Bld) [#/Vol] 0.1 10*3/uL Normal 0.0-0.45 [facility] Comment on above: Performed By: #### L IPID, PTH, CBC, CMP, PHOS, PSAS, TSH3, T4F, URMACRERAT, [id number], MG #### [place] [address] [place] #### CAION #### [facility] , Eosinophils/100 WBC (Bld) 1.4 % Normal . [facility] Comment on above: Performed By: #### L IPID, PTH, CBC, CMP, PHOS, PSAS, TSH3, T4F, URMACRERAT, [id number], MG #### [place] [address] [place] #### CAION #### [facility] , Erythrocyte distribution width (RBC) [Ratio] 13.6 % Normal 12.0-14.8 [facility] Comment on above: Performed By: #### L IPID, PTH, CBC, CMP, PHOS, PSAS, TSH3, T4F, URMACRERAT, [id number], MG #### [address] #### CAION #### [facility] , Hematocrit (Bld) [Volume fraction] 48.6 % Normal 38.8-50.0 [facility] Comment on above: Performed By: #### L IPID, PTH, CBC, CMP, PHOS, PSAS, TSH3, T4F, URMACRERAT, [id number], MG #### [address] #### CAION #### [facility] , Hemoglobin (Bld) [Mass/Vol] 16.7 g/dL Normal 13.0-17.0 [facility] Comment on above: Performed By: #### L IPID, PTH, CBC, CMP, PHOS, PSAS, TSH3, T4F, URMACRERAT, [id number], MG #### [address] #### CAION #### [facility] , Lymphocytes (Bld) [#/Vol] 2.2 10*3/uL Normal 1.00-4.8 [facility] Comment on above: Performed By: #### L IPID, PTH, CBC, CMP, PHOS, PSAS, TSH3, T4F, URMACRERAT, [id number], MG #### [place] [address] [place] #### CAION #### [facility] , Lymphocytes/100 WBC (Bld) 28.5 % Normal . [facility] Comment on above: Performed By: #### L IPID, PTH, CBC, CMP, PHOS, PSAS, TSH3, T4F, URMACRERAT, [id number], MG #### [address] #### CAION #### [facility] , MCH (RBC) [Entitic mass] 32.7 pg Normal 27.5-35.2 [facility] Comment on above: Performed By: #### L IPID, PTH, CBC, CMP, PHOS, PSAS, TSH3, T4F, URMACRERAT, [id number], MG #### [facility] [address] [place] [address] #### CAION #### [facility] , MCV (RBC) [Entitic vol] 95.1 fL Normal 83.5-101 [facility] Comment on above: Performed By: #### L IPID, PTH, CBC, CMP, PHOS, PSAS, TSH3, T4F, URMACRERAT, [id number], MG #### [address] #### CAION #### [facility] , Mean Corpuscular HGB Conc 34.4 g/dL Normal 32.5-35.6 [facility] Comment on above: Performed By: #### L IPID, PTH, CBC, CMP, PHOS, PSAS, TSH3, T4F, URMACRERAT, [id number], MG #### [address] #### CAION #### [facility] , Monocytes (Bld) [#/Vol] 0.4 10*3/uL Normal 0.0-0.8 [facility] Comment on above: Performed By: #### L IPID, PTH, CBC, CMP, PHOS, PSAS, TSH3, T4F, URMACRERAT, [id number], MG #### [address] #### CAION #### [facility] , Monocytes/100 WBC (Bld) 5.0 % Normal . [facility] Comment on above: Performed By: #### L IPID, PTH, CBC, CMP, PHOS, PSAS, TSH3, T4F, URMACRERAT, [id number], MG #### [place] [address] [place] #### CAION #### [facility] , Neutrophils (Bld) [#/Vol] 5.0 10*3/uL Normal 1.8-7.7 [facility] Comment on above: Performed By: #### L IPID, PTH, CBC, CMP, PHOS, PSAS, TSH3, T4F, URMACRERAT, [id number], MG #### [place] [address] [place] #### CAION #### [facility] , Neutrophils/100 WBC (Bld) 64.4 % Normal . [facility] Comment on above: Performed By: #### L IPID, PTH, CBC, CMP, PHOS, PSAS, TSH3, T4F, URMACRERAT, [id number], MG #### [place] [address] [place] #### CAION #### [facility] , NRBC% 0.1 /100{WBC} Normal 0-0.5 [facility] Comment on above: Performed By: #### L IPID, PTH, CBC, CMP, PHOS, PSAS, TSH3, T4F, URMACRERAT, [id number], MG #### [facility] [address] [place] [address] [place] #### CAION #### [facility] , Platelet mean volume (Bld) [Entitic vol] 9.7 fL Normal 6.6-10.1 [facility] Comment on above: Performed By: #### L IPID, PTH, CBC, CMP, PHOS, PSAS, TSH3, T4F, URMACRERAT, [id number], MG #### [place] [address] [place] #### CAION #### [facility] , Platelets (Bld) [#/Vol] 217 10*3/uL Normal 150-450 [facility] Comment on above: Performed By: #### L IPID, PTH, CBC, CMP, PHOS, PSAS, TSH3, T4F, URMACRERAT, [id number], MG #### [place] [address] [place] #### CAION #### [facility] , RBC (Bld) [#/Vol] 5.11 10*6/uL Normal 3.90-5.60 [facility] Comment on above: Performed By: #### L IPID, PTH, CBC, CMP, PHOS, PSAS, TSH3, T4F, URMACRERAT, [id number], MG #### [address] #### CAION #### [facility] , WBC (Bld) [#/Vol] 7.8 10*3/uL Normal 4.1-10.5 [facility] Comment on above: Performed By: #### L IPID, PTH, CBC, CMP, PHOS, PSAS, TSH3, T4F, URMACRERAT, [id number], MG #### [place] [address] [place] #### CAION #### [facility] , Comprehensive Metabolic Pane william 04-16-2023 Albumin [Mass/Vol] 4.5 g/dL Normal 3.5-5.7 [facility] Comment on above: Performed By: #### B MP, CBC, PHOS, BNP, HS TROP, MG #### [address] Albumin/Globulin [Mass ratio] 1.9 {ratio} Normal [facility] Comment on above: Performed By: #### B MP, CBC, PHOS, BNP, HS TROP, MG #### [address] ALP [Catalytic activity/Vol] 61 U/L Normal 34-104 [facility] Comment on above: Performed By: #### B MP, CBC, PHOS, BNP, HS TROP, MG #### [address] ALT [Catalytic activity/Vol] 26 U/L Normal 7-52 [facility] Comment on above: Performed By: #### B MP, CBC, PHOS, BNP, HS TROP, MG #### [address] Anion gap [Moles/Vol] 7.9 mmol/L Normal 6.0-15.0 [facility] Comment on above: Performed By: #### B MP, CBC, PHOS, BNP, HS TROP, MG #### [address] AST [Catalytic activity/Vol] 18 U/L Normal 13-39 [facility] Comment on above: Performed By: #### B MP, CBC, PHOS, BNP, HS TROP, MG #### [address] Bilirubin [Mass/Vol] 0.9 mg/dL Normal 0.3-1.0 [facility] Comment on above: Performed By: #### B MP, CBC, PHOS, BNP, HS TROP, MG #### [address] Calcium [Mass/Vol] 9.4 mg/dL Normal 8.6-10.3 [facility] Comment on above: Performed By: #### B MP, CBC, PHOS, BNP, HS TROP, MG #### [address] Chloride [Moles/Vol] 107 mmol/L Normal 98-107 [facility] Comment on above: Performed By: #### B MP, CBC, PHOS, BNP, HS TROP, MG #### [address] CO2 [Moles/Vol] 30.6 mmol/L Normal 21.0-31.0 [facility] Comment on above: Performed By: #### B MP, CBC, PHOS, BNP, HS TROP, MG #### [address] Creatinine [Mass/Vol] 0.87 mg/dL Normal 0.70-1.30 [facility] Comment on above: Performed By: #### B MP, CBC, PHOS, BNP, HS TROP, MG #### [address] GFR/1.73 sq M.predicted MDRD (S/P/Bld) [Vol rate/Area] mL/min/{1.73_m2} Normal [facility] Comment on above: Performed By: #### B MP, CBC, PHOS, BNP, HS TROP, MG #### [address] Globulin (S) [Mass/Vol] 2.4 g/dL Normal [facility] Comment on above: Performed By: #### B MP, CBC, PHOS, BNP, HS TROP, MG #### [address] Glucose [Mass/Vol] 92 mg/dL Normal 70-100 [facility] Comment on above: Result Comment: [place] Glucose Reference Range is dependent on time and content of last meal. Glucose of more than 200 mg/dL in a nonstressed, ambulatory subject supports the diagnosis of Diabetes Mellitus. ADA recommended reference range Performed By: #### B MP, CBC, PHOS, BNP, HS TROP, MG #### [address] Potassium [Moles/Vol] 4.5 mmol/L Normal 3.5-5.1 [facility] Comment on above: Performed By: #### B MP, CBC, PHOS, BNP, HS TROP, MG #### [facility] [address] Protein [Mass/Vol] 6.9 g/dL Normal 6.4-8.9 [facility] Comment on above: Performed By: #### B MP, CBC, PHOS, BNP, HS TROP, MG #### [facility] [address] Sodium [Moles/Vol] 141 mmol/L Normal 136-145 [facility] Comment on above: Performed By: #### B MP, CBC, PHOS, BNP, HS TROP, MG #### [facility] [address] Urea nitrogen [Mass/Vol] 13 mg/dL Normal 7-25 [facility] Comment on above: Performed By: #### B MP, CBC, PHOS, BNP, HS TROP, MG #### [facility] [address] Creatinine [Mass/volume] in Serum or PlasmaOrdered By: Dominick Pickens on 04-16-2023 Creatinine [Mass/Vol] 0.87 mg/dL 0.70-1.30 [facility] Creatinine [Mass/volume] in UrineOrdered By: Dominick Pickens on 04-16-2023 Creatinine (U) [Mass/Vol] 135.0 mg/dL 14.0-26.0 [facility] Eosinophils Auto (Bld) [#/Vo l]Ordered By: Dominick Pickens on 04-16-2023 Eosinophils (Bld) [#/Vol] 0.1 10*3/uL 0.0-0.45 [facility] Eosinophils/100 WBC Auto (Bl d)Ordered By: Dominick Pickens on 04-16-2023 Eosinophils/100 WBC (Bld) 1.4 % . [facility] Erythrocyte distribution wid th Auto (RBC) [Ratio]Ordered By: Dominick Pickens on 04-16-2023 Erythrocyte distribution width (RBC) [Ratio] 13.6 % 12.0-14.8 [facility] Free T4 (Free Thyroxine)on 0 04-16-2023 Free T4 [Mass/Vol] 0.68 ng/dL Normal 0.61-1.12 [facility] Comment on above: Performed By: #### B MP, CBC, PHOS, BNP, HS TROP, MG #### [facility] [address] Globulin Calc (S) [Mass/Vol] Ordered By: Dominick Pickens on 04-16-2023 Globulin (S) [Mass/Vol] 2.4 g/dL [facility] Glucose [Mass/volume] in Ser um or PlasmaOrdered By: Dominick Pickens on 04-16-2023 Glucose [Mass/Vol] 92 mg/dL 70-[address] [facility] Comment on above: ADA recommended refe rence rangeRandom Glucose Reference Range is dependent on time and content of last meal. Glucose of more than 200 mg/dL in a nonstressed, ambulatory subject supports the diagnosis of Diabetes Mellitus. Hematocrit Auto (Bld) [Volum e fraction]Ordered By: Dominick Pickens on 04-16-2023 Hematocrit (Bld) [Volume fraction] 48.6 % 38.8-50.0 [facility] Hemoglobin [Mass/volume] in BloodOrdered By: Dominick Pickens on 04-16-2023 Hemoglobin (Bld) [Mass/Vol] 16.7 g/dL 13.0-17.0 [facility] Ionized Calciumon 04-16-2023 Ionized Calcium Normal . [facility] Comment on above: Result Comment: Test not performed. Deterioration occurred during specimen handling. contacted your facility on 04-20-2023 PERFORMED BY: [place] [address] PATHOLOGIST ENROLLMENT NURSE STUART SIGALA M.D. Performed By: #### B MP, CBC, PHOS, BNP, HS TROP, MG #### [facility] [address] Leukocytes [#/volume] correc lolis for nucleated erythrocytes in Blood by Automated counOrdered By: Dominick Pickens on 04-16-2023 WBC corrected for nucl RBC Auto (Bld) [#/Vol] 7.8 10*3/uL 4.1-10.5 [facility] Lipid Panelon 04-16-2023 Cholesterol [Mass/Vol] 187 mg/dL Normal 140-200 [facility] Comment on above: Result Comment: Chol less than 200 mg/dl low risk Chol 201-239 mg/dl borderline risk Chol 240 mg/dl and greater high risk Performed By: #### B MP, CBC, PHOS, BNP, HS TROP, MG #### [facility] [address] Cholesterol in HDL [Mass/Vol] 37 mg/dL Normal 23-92 [facility] Comment on above: Result Comment: HDL CHOL ATP-III CLASSIFICATION Cardiovascular Risk HDL > or equal to 60 mg/dL LOW HDL < 40 mg/dL HIGH Performed By: #### B MP, CBC, PHOS, BNP, HS TROP, MG #### [facility] [address] Cholesterol.total/Chol esterol in HDL [Mass ratio] 5.1 {ratio} Normal <5.0 [facility] Comment on above: Performed By: #### B MP, CBC, PHOS, BNP, HS TROP, MG #### [facility] [address] LDL Cholesterol,Calculated 127 mg/dL High 0-100 [facility] Comment on above: Result Comment: LDL ATP III CLASSIFICATION LDL less than 100 mg/dL Optimal LDL 100-129 mg/dL Near or above optimal LDL 130-159 mg/dL Borderline high LDL 160-189 mg/dL High LDL greater than 189 mg/dL Very high Performed By: #### B MP, CBC, PHOS, BNP, HS TROP, MG #### [facility] [address] [place] [id number] [place] Triglyceride w/Reflex 114 mg/dL Normal 0-149 [facility] Comment on above: Result Comment: TRIG ATP III CLASSIFICATION TRIG less than 150 mg/dL Normal TRIG 150-199 mg/dL Borderline high TRIG 200-500 mg/dL High TRIG greater than 500 mg/dL Very high Standard traceable to the Center for Disease Conrtrol and Prevention (CDC) test method. Performed By: #### B MP, CBC, PHOS, BNP, HS TROP, MG #### [facility] [address] VLDL CHOLESTEROL 22 mg/dL Normal [facility] Comment on above: Performed By: #### B MP, CBC, PHOS, BNP, HS TROP, MG #### [facility] [address] Lymphocytes Auto (Bld) [#/Vo l]Ordered By: Dominick Pickens on 04-16-2023 Lymphocytes (Bld) [#/Vol] 2.2 10*3/uL 1.00-4.8 [facility] Lymphocytes/100 WBC Auto (Bl d)Ordered By: Dominick Pickesn on 04-16-2023 Lymphocytes/100 WBC (Bld) 28.5 % . [facility] MCH Auto (RBC) [Entitic mass ]Ordered By: Dominick Pickens on 04-16-2023 MCH (RBC) [Entitic mass] 32.7 pg 27.5-35.2 [facility] MCHC Auto (RBC) [Mass/Vol]Or dered By: Dominick Pickens on 04-16-2023 MCHC (RBC) [Mass/Vol] 34.4 g/dL 32.5-35.6 [facility] MCV Auto (RBC) [Entitic vol] Ordered By: Dominick Pickens on 04-16-2023 MCV (RBC) [Entitic vol] 95.1 fL 83.5-101 [facility] Magnesiumon 04-16-2023 Magnesium [Mass/Vol] 2.1 mg/dL Normal 1.9-2.7 [facility] Comment on above: Performed By: #### B MP, CBC, PHOS, BNP, HS TROP, MG #### [facility] [address] Magnesium [Mass/volume] in S isiah or PlasmaOrdered By: Dominick Pickens on 04-16-2023 Magnesium [Mass/Vol] 2.1 mg/dL 1.9-2.7 [facility] MicroAlb Creat Ratio,Uon Albumin DL <= 20 mg/L (U) [Mass/Vol] mg/dL Normal 0.0-1.8 [facility] Comment on above: Performed By: #### B MP, CBC, PHOS, BNP, HS TROP, MG #### [facility] [address] Creatinine, Urine (Random) 135.0 mg/dL High 14.0-26.0 [facility] Comment on above: Performed By: #### B MP, CBC, PHOS, BNP, HS TROP, MG #### [address] Microalbumin/Creatinin e Ratio Not performed Normal 0.0-30.0 [facility] Comment on above: Result Comment: PERF ORMED BY: [place] [address] PATHOLOGIST ENROLLMENT NURSE STUART SIGALA M.D. Performed By: #### B MP, CBC, PHOS, BNP, HS TROP, MG #### [address] Microalbumin [Mass/volume] i n UrineOrdered By: Dominick Pickens on 04-16-2023 Albumin DL <= 20 mg/L (U) [Mass/Vol] mg/dL 0.0-1.8 [facility] Monocytes Auto (Bld) [#/Vol] Ordered By: Dominick Pickens on 04-16-2023 Monocytes (Bld) [#/Vol] 0.4 10*3/uL 0.0-0.8 [facility] Monocytes/100 WBC Auto (Bld) Ordered By: Dominick Pickens on 04-16-2023 Monocytes/100 WBC (Bld) 5.0 % . [facility] Neutrophils Auto (Bld) [#/Vo l]Ordered By: Dominick Pickens on 04-16-2023 Neutrophils (Bld) [#/Vol] 5.0 10*3/uL 1.8-7.7 [facility] Neutrophils/100 WBC Auto (Bl d)Ordered By: Dominick Pickens on 04-16-2023 Neutrophils/100 WBC (Bld) 64.4 % . [facility] No Panel InformationOrdered By: Dominick Pickens on 04-16-2023 Estimated GFR (CKD-EPI) > 60.0 mL/Min [facility] Creatinine Clearance (Chem N/A [facility] Nucleated erythrocytes [Pres ence] in Blood by Automated countOrdered By: Dominick Pickens on 04-16-2023 Nucleated RBC Auto Ql (Bld) 0.1 /100{WBC} 0-0.5 [facility] PSA Screen (Yearly Only)on 0 04-16-2023 PSA Screen (Yearly Only) 0.390 ng/mL Normal 0.000-4.000 [facility] Comment on above: Result Comment: PERF ORMED BY: [place] [address] PATHOLOGIST ENROLLMENT NURSE STUART SIGALA M.D. Performed By: #### B MP, CBC, PHOS, BNP, HS TROP, MG #### [facility] [address] [place] [id number] [facility] Parathyrin.intact [Mass/volu me] in Serum or PlasmaOrdered By: Dominick Pickens on 04-16-2023 Parathyrin.intact [Mass/Vol] 32.5 pg/mL [facility] Parathyroid Hormone Intacton 04-16-2023 Parathyroid Hormone Intact 32.5 pg/mL Normal [facility] Comment on above: Result Comment: PERF ORMED BY: [place] [address] PATHOLOGIST ENROLLMENT NURSE STUART SIGALA M.D. Performed By: #### B MP, CBC, PHOS, BNP, HS TROP, MG #### [facility] [address] [place], [place] [id number] [place] Phosphate [Mass/volume] in S isiah or PlasmaOrdered By: Dominick Pickens on 04-16-2023 Phosphate [Mass/Vol] 3.2 mg/dL 3.7-7.2 [facility] Phosphoruson 04-16-2023 Phosphate [Mass/Vol] 3.2 mg/dL Low 3.7-7.2 [facility] Comment on above: Performed By: #### B MP, CBC, PHOS, BNP, HS TROP, MG #### [facility] [address] [place] [id number] [facility] Platelet mean volume Auto (B ld) [Entitic vol]Ordered By: Dominick Pickens on 04-16-2023 Platelet mean volume (Bld) [Entitic vol] 9.7 fL 6.6-10.1 [facility] Platelets Auto (Bld) [#/Vol] Ordered By: Dominick Pickens on 04-16-2023 Platelets (Bld) [#/Vol] 217 10*3/uL 150-450 [facility] Potassium [Moles/volume] in Serum or PlasmaOrdered By: Dominick Pickens on 04-16-2023 Potassium [Moles/Vol] 4.5 mmol/L 3.5-5.1 [facility] Prostate specific Ag [Mass/v olume] in Serum or PlasmaOrdered By: Dominick Pickens on 04-16-2023 Prostate specific Ag [Mass/Vol] 0.390 ng/mL 0.000-4.000 [facility] Protein [Mass/volume] in Ser um or PlasmaOrdered By: Dominick Pickens on 04-16-2023 Protein [Mass/Vol] 6.9 g/dL 6.4-8.[address] [facility] RBC Auto (Bld) [#/Vol]Ordere d By: Dominick Pickens on 04-16-2023 RBC (Bld) [#/Vol] 5.11 10*6/uL 3.90-5.60 [facility] Serum ionized calcium measur ement using ion specific electrode (mass/volume)Ordered By: Dominick Pickens on 04-16-2023 Calcium.ionized ISE [Mass/Vol] See comment . [facility] Comment on above: Test not performed. Deterioration occurred during specimenhandling.contacted your facility on 04-20-2023 Serum or plasma albumin/glob ulin mass ratioOrdered By: Dominick Pickens on 04-16-2023 Albumin/Globulin [Mass ratio] 1.9 {ratio} [facility] Serum or plasma anion gap de terminationOrdered By: Dominick Pickens on 04-16-2023 Anion gap [Moles/Vol] 7.9 mmol/L 6.0-15.0 [facility] Serum or plasma high density lipoprotein (HDL) cholesterol measurementOrdered By: Dominick Pickens on 04-16-2023 Cholesterol in HDL [Mass/Vol] 37 mg/dL 23-92 [facility] Comment on above: HDL CHOL ATP-III CLA SSIFICATION Cardiovascular RiskHDL > or equal to 60 mg/dL LOWHDL < 40 mg/dL HIGH Serum or plasma total choles terol/high density lipoprotein (HDL) cholesterol mass ratOrdered By: Dominick Pickens on 04-16-2023 Cholesterol.total/Chol esterol in HDL [Mass ratio] 5.1 {ratio} <5.0 [facility] Sodium [Moles/volume] in Ser um or PlasmaOrdered By: Dominick Pickens on 04-16-2023 Sodium [Moles/Vol] 141 mmol/L 136-[address] [facility] Thyroid Stimulating Hormoneo n 04-16-2023 TSH Qn 0.84 m[IU]/L Normal 0.45-5.33 [facility] Comment on above: Performed By: #### B MP, CBC, PHOS, BNP, HS TROP, MG #### [facility] [address] Thyrotropin [Units/volume] i n Serum or PlasmaOrdered By: Dominick Pickens on 04-16-2023 TSH Qn 0.84 m[IU]/L 0.45-5.33 [facility] Thyroxine (T4) free [Mass/vo lume] in Serum or PlasmaOrdered By: Dominick Pickens on 04-16-2023 Free T4 [Mass/Vol] 0.68 ng/dL 0.61-1.[address] [facility] Triglyceride [Mass/volume] i n Serum or PlasmaOrdered By: Dominick Pickens on 04-16-2023 Triglyceride [Mass/Vol] 114 mg/dL 0-149 [facility] Comment on above: TRIG ATP III CLASSIF ICATIONTRIG less than 150 mg/dL NormalTRIG 150-199 mg/dL Borderline highTRIG 200-500 mg/dL High TRIG greater than 500 mg/dL Very highStandard traceable to the Center for Disease Conrtrol and Prevention (CDC) test method. Urea nitrogen [Mass/volume] in Serum or PlasmaOrdered By: Dominick Pickens on 04-16-2023 Urea nitrogen [Mass/Vol] 13 mg/dL 7-25 [facility] Urine microalbumin/creatinin e mass ratioOrdered By: Dominick Pickens on 04-16-2023 Albumin/Creatinine DL <= 20 mg/L (U) [Mass ratio] TNP [facility] Comment on above: Test not performed Vitamin D 25 Hydroxy Totalon 04-16-2023 Vitamin D 25 Hydroxy Total 34.7 ng/mL Normal 30-100 [facility] Comment on above: Result Comment: ARTUR MIN D STATUS 25(OH)VITAMIN D RANGE (ng/mL) Deficient <20 Insufficient 20 to <30 Sufficient 30 to 100 Reference: Cyndi Bryant, Elvia LOPEZ, et al. Evaluation,treatment, and prevention of vitamin D deficiency; an Endocrine Society clinical practice guideline. JCEM. 2010; 96(7):1911-30. PERFORMED BY: [place] [address] PATHOLOGIST ENROLLMENT NURSE STUART SIGALA M.D. Performed By: #### B MP, CBC, PHOS, BNP, HS TROP, MG #### [address] Vitamin D+Metabolites [Mass/ volume] in Serum or PlasmaOrdered By: Dominick Pickens on 04-16-2023 Vitamin D+Metabolites [Mass/Vol] 34.7 ng/mL 30-100 [facility] Comment on above: VITAMIN D STATUS 25( OH)VITAMIN D RANGE (ng/mL) Deficient <20 Insufficient 20 to <30Sufficient 30 to 100Reference: Cyndi Bryant, Elvia LOPEZ, et al. Evaluation,treatment, and prevention of vitamin D deficiency; an Endocrine Society clinical practice guideline. JCEM. 2010; 96(7):1911-30. WBC Auto (Bld) [#/Vol]Ordere d By: Dominick Pickens on 04-16-2023 WBC (Bld) [#/Vol] 7.8 10*3/uL 4.1-10.[address] [facility] B-Type Natriuretic Peptideon 03-26-2023 Natriuretic peptide B (Bld) [Mass/Vol] 9.0 pg/mL Normal 5-100 [facility] Comment on above: Result Comment: PERF ORMED BY: [place] [address] PATHOLOGIST ENROLLMENT NURSE STUART SIGALA M.D. Performed By: #### B MP, CBC, PHOS, BNP, HS TROP, MG #### [address] Basic Metabolic Panelon 03-15 Anion gap [Moles/Vol] 8.6 mmol/L Normal 6.0-15.0 [facility] Comment on above: Performed By: #### B MP, CBC, PHOS, BNP, HS TROP, MG #### [address] Calcium [Mass/Vol] 9.2 mg/dL Normal 8.6-10.3 [facility] Comment on above: Performed By: #### B MP, CBC, PHOS, BNP, HS TROP, MG #### [address] Chloride [Moles/Vol] 106 mmol/L Normal 98-107 [facility] Comment on above: Performed By: #### B MP, CBC, PHOS, BNP, HS TROP, MG #### [address] CO2 [Moles/Vol] 28.4 mmol/L Normal 21.0-31.0 [facility] Comment on above: Performed By: #### B MP, CBC, PHOS, BNP, HS TROP, MG #### [address] Creatinine [Mass/Vol] 0.98 mg/dL Normal 0.70-1.30 [facility] Comment on above: Performed By: #### B MP, CBC, PHOS, BNP, HS TROP, MG #### [place] [address] [place] [address] [place] Creatinine Clr Calc Pharmacy 107.58 Normal [facility] Comment on above: Performed By: #### B MP, CBC, PHOS, BNP, HS TROP, MG #### [facility] [address] [place] [address] [place] GFR/1.73 sq M.predicted MDRD (S/P/Bld) [Vol rate/Area] mL/min/{1.73_m2} Normal [facility] Comment on above: Performed By: #### B MP, CBC, PHOS, BNP, HS TROP, MG #### [facility] [address] Glucose [Mass/Vol] 100 mg/dL Normal 70-100 [facility] Comment on above: Result Comment: [facility] Glucose Reference Range is dependent on time and content of last meal. Glucose of more than 200 mg/dL in a nonstressed, ambulatory subject supports the diagnosis of Diabetes Mellitus. ADA recommended reference range Performed By: #### B MP, CBC, PHOS, BNP, HS TROP, MG #### [facility] [address] Potassium [Moles/Vol] 4.0 mmol/L Normal 3.5-5.1 [facility] Comment on above: Performed By: #### B MP, CBC, PHOS, BNP, HS TROP, MG #### [facility] [address] [place] [address] [place] Sodium [Moles/Vol] 139 mmol/L Normal 136-145 [facility] Comment on above: Performed By: #### B MP, CBC, PHOS, BNP, HS TROP, MG #### [facility] [address] [place] [address] [place] Urea nitrogen [Mass/Vol] 17 mg/dL Normal 7-25 [facility] Comment on above: Performed By: #### B MP, CBC, PHOS, BNP, HS TROP, MG #### [facility] [address] [place] [address] [place] Basophils Auto (Bld) [#/Vol] Ordered By: Dominick Herbert on 03-26-2023 Basophils (Bld) [#/Vol] 0.1 10*3/uL 0.0-0.2 [facility] Basophils/100 WBC Auto (Bld) Ordered By: Dominick Herbert on 03-26-2023 Basophils/100 WBC (Bld) 0.9 % . [facility] Calcium [Mass/volume] in Ser um or PlasmaOrdered By: Dominick Herbert on 03-26-2023 Calcium [Mass/Vol] 9.2 mg/dL 8.6-10.[address] [facility] Carbon dioxide, total [Moles /volume] in Serum or PlasmaOrdered By: Dominick Herbert on 03-26-2023 CO2 [Moles/Vol] 28.4 mmol/L 21.0-31.0 [facility] Chloride [Moles/volume] in S isiah or PlasmaOrdered By: Dominick Herbert on 03-26-2023 Chloride [Moles/Vol] 106 mmol/L 98-107 [facility] Complete Blood Count Auto Di ffon 03-26-2023 Basophils (Bld) [#/Vol] 0.1 10*3/uL Normal 0.0-0.2 [facility] Comment on above: Result Comment: PERF ORMED BY: [place] [address] PATHOLOGIST ENROLLMENT NURSE STUART SIGALA M.D. Performed By: #### B MP, CBC, PHOS, BNP, HS TROP, MG #### [facility] [address] [place] [address] Basophils/100 WBC (Bld) 0.9 % Normal . [facility] Comment on above: Performed By: #### B MP, CBC, PHOS, BNP, HS TROP, MG #### [facility] [address] [place] [address] Eosinophils (Bld) [#/Vol] 0.1 10*3/uL Normal 0.0-0.45 [facility] Comment on above: Performed By: #### B MP, CBC, PHOS, BNP, HS TROP, MG #### [address] [place] [address] [place] Eosinophils/100 WBC (Bld) 1.2 % Normal . [facility] Comment on above: Performed By: #### B MP, CBC, PHOS, BNP, HS TROP, MG #### [address] Erythrocyte distribution width (RBC) [Ratio] 13.3 % Normal 12.0-14.8 [facility] Comment on above: Performed By: #### B MP, CBC, PHOS, BNP, HS TROP, MG #### [address] Hematocrit (Bld) [Volume fraction] 46.3 % Normal 38.8-50.0 [facility] Comment on above: Performed By: #### B MP, CBC, PHOS, BNP, HS TROP, MG #### [address] Hemoglobin (Bld) [Mass/Vol] 16.0 g/dL Normal 13.0-17.0 [facility] Comment on above: Performed By: #### B MP, CBC, PHOS, BNP, HS TROP, MG #### [address] Lymphocytes (Bld) [#/Vol] 2.6 10*3/uL Normal 1.00-4.8 [facility] Comment on above: Performed By: #### B MP, CBC, PHOS, BNP, HS TROP, MG #### [address] Lymphocytes/100 WBC (Bld) 26.4 % Normal . [facility] Comment on above: Performed By: #### B MP, CBC, PHOS, BNP, HS TROP, MG #### [address] MCH (RBC) [Entitic mass] 32.4 pg Normal 27.5-35.2 [facility] Comment on above: Performed By: #### B MP, CBC, PHOS, BNP, HS TROP, MG #### [place] [id number] [place] MCV (RBC) [Entitic vol] 93.8 fL Normal 83.5-101 [facility] Comment on above: Performed By: #### B MP, CBC, PHOS, BNP, HS TROP, MG #### [address] Mean Corpuscular HGB Conc 34.5 g/dL Normal 32.5-35.6 [facility] Comment on above: Performed By: #### B MP, CBC, PHOS, BNP, HS TROP, MG #### [address] Monocytes (Bld) [#/Vol] 0.6 10*3/uL Normal 0.0-0.8 [facility] Comment on above: Performed By: #### B MP, CBC, PHOS, BNP, HS TROP, MG #### [address] Monocytes/100 WBC (Bld) 17.41 % Normal 0.00-20.00 [facility] Comment on above: Performed By: #### B MP, CBC, PHOS, BNP, HS TROP, MG #### [address] Monocytes/100 WBC (Bld) 6.1 % Normal . [facility] Comment on above: Performed By: #### B MP, CBC, PHOS, BNP, HS TROP, MG #### [address] Neutrophils (Bld) [#/Vol] 6.5 10*3/uL Normal 1.8-7.7 [facility] Comment on above: Performed By: #### B MP, CBC, PHOS, BNP, HS TROP, MG #### [address] Neutrophils/100 WBC (Bld) 65.4 % Normal . [facility] Comment on above: Performed By: #### B MP, CBC, PHOS, BNP, HS TROP, MG #### [address] NRBC% 0.0 /100{WBC} Normal 0-0.5 [facility] Comment on above: Performed By: #### B MP, CBC, PHOS, BNP, HS TROP, MG #### [address] Platelet mean volume (Bld) [Entitic vol] 9.0 fL Normal 6.6-10.1 [facility] Comment on above: Performed By: #### B MP, CBC, PHOS, BNP, HS TROP, MG #### [address] Platelets (Bld) [#/Vol] 220 10*3/uL Normal 150-450 [facility] Comment on above: Performed By: #### B MP, CBC, PHOS, BNP, HS TROP, MG #### [address] RBC (Bld) [#/Vol] 4.94 10*6/uL Normal 3.90-5.60 [facility] Comment on above: Performed By: #### B MP, CBC, PHOS, BNP, HS TROP, MG #### [address] WBC (Bld) [#/Vol] 9.9 10*3/uL Normal 4.1-10.5 [facility] Comment on above: Performed By: #### B MP, CBC, PHOS, BNP, HS TROP, MG #### [address] Creatinine [Mass/volume] in Serum or PlasmaOrdered By: Dominick Herbert on 03-26-2023 Creatinine [Mass/Vol] 0.98 mg/dL 0.70-1.30 [facility] ECG 12 lead ECGon 03-26-2023 ECG 12 lead ECG [facility] [place] [address] [place] [address] Electrocardiograph Report Signed Patient: Katelynn Burdick MR#: [id number] 1 : 1975 Acct:[id number] Age/Sex: 47 / M ADM Date: 03/26/23 [...] sinus rhythm Confirmed by Dominick Herbert DO ([id number]) on 03/26/2023 6:27:27 PM Referred By: Electronically Signed By:Dominick Herbert DO Transcribed By: MUS Signed By Dominick Herbert DO [id number] Normal [facility] Eosinophils Auto (Bld) [#/Vo l]Ordered By: Dominick Herbert on 03-26-2023 Eosinophils (Bld) [#/Vol] 0.1 10*3/uL 0.0-0.45 [facility] Eosinophils/100 WBC Auto (Bl d)Ordered By: Dominick Herbert on 03-26-2023 Eosinophils/100 WBC (Bld) 1.2 % . [facility] Erythrocyte distribution wid th Auto (RBC) [Ratio]Ordered By: Dominick Herbert on 03-26-2023 Erythrocyte distribution width (RBC) [Ratio] 13.3 % 12.0-14.8 [facility] Glucose [Mass/volume] in Ser um or PlasmaOrdered By: Dominick Herbert on 03-26-2023 Glucose [Mass/Vol] 100 mg/dL 70-[address] [facility] Comment on above: ADA recommended refe rence rangeRandom Glucose Reference Range is dependent on time and content of last meal. Glucose of more than 200 mg/dL in a nonstressed, ambulatory subject supports the diagnosis of Diabetes Mellitus. Hematocrit Auto (Bld) [Volum e fraction]Ordered By: Dominick Herbert on 03-26-2023 Hematocrit (Bld) [Volume fraction] 46.3 % 38.8-50.0 [facility] Hemoglobin [Mass/volume] in BloodOrdered By: Dominick Herbert on 03-26-2023 Hemoglobin (Bld) [Mass/Vol] 16.0 g/dL 13.0-17.0 [facility] Leukocytes [#/volume] correc lolis for nucleated erythrocytes in Blood by Automated counOrdered By: Dominick Herbert on 03-26-2023 WBC corrected for nucl RBC Auto (Bld) [#/Vol] 9.9 10*3/uL 4.1-10.5 [facility] Lymphocytes Auto (Bld) [#/Vo l]Ordered By: Dominick Herbert on 03-26-2023 Lymphocytes (Bld) [#/Vol] 2.6 10*3/uL 1.00-4.8 [facility] Lymphocytes/100 WBC Auto (Bl d)Ordered By: Dominick Herbert on 03-26-2023 Lymphocytes/100 WBC (Bld) 26.4 % . [facility] MCH Auto (RBC) [Entitic mass ]Ordered By: Dominick Herbert on 03-26-2023 MCH (RBC) [Entitic mass] 32.4 pg 27.5-35.2 [facility] MCHC Auto (RBC) [Mass/Vol]Or dered By: Dominick Herbert on 03-26-2023 MCHC (RBC) [Mass/Vol] 34.5 g/dL 32.5-35.6 [facility] MCV Auto (RBC) [Entitic vol] Ordered By: Dominick Herbert on 03-26-2023 MCV (RBC) [Entitic vol] 93.8 fL 83.5-101 [facility] Magnesiumon 03-26-2023 Magnesium [Mass/Vol] 2.1 mg/dL Normal 1.9-2.7 [facility] Comment on above: Result Comment: PERF ORMED BY: [facility] [address] [place] [address] PATHOLOGIST ENROLLMENT NURSE STUART SIGALA M.D. Performed By: #### B MP, CBC, PHOS, BNP, HS TROP, MG #### [facility] [address] Magnesium [Mass/volume] in S isiah or PlasmaOrdered By: Dominick Herbert on 03-26-2023 Magnesium [Mass/Vol] 2.1 mg/dL 1.9-2.7 [facility] Monocyte distribution width [Entitic volume] in Blood by AutomatedOrdered By: Dominick Herbert on 03-26-2023 Monocyte distribution width Auto (Bld) [Entitic vol] 17.41 % 0.00-20.00 [facility] Monocytes Auto (Bld) [#/Vol] Ordered By: Dominick Herbert on 03-26-2023 Monocytes (Bld) [#/Vol] 0.6 10*3/uL 0.0-0.8 [facility] Monocytes/100 WBC Auto (Bld) Ordered By: Dominick Herbert on 03-26-2023 Monocytes/100 WBC (Bld) 6.1 % . [facility] Natriuretic peptide B [Mass/ Vol]Ordered By: Dominick Herbert on 03-26-2023 Natriuretic peptide B (Bld) [Mass/Vol] 9.0 pg/mL 5-100 [facility] Neutrophils Auto (Bld) [#/Vo l]Ordered By: Dominick Herbert on 03-26-2023 Neutrophils (Bld) [#/Vol] 6.5 10*3/uL 1.8-7.7 [facility] Neutrophils/100 WBC Auto (Bl d)Ordered By: Dominick Herbert on 03-26-2023 Neutrophils/100 WBC (Bld) 65.4 % . [facility] No Panel InformationOrdered By: Dominick Herbert on 03-26-2023 Estimated GFR (CKD-EPI) > 60.0 mL/Min [facility] Creatinine Clearance (Chem 107.58 [facility] Nucleated erythrocytes [Pres ence] in Blood by Automated countOrdered By: Dominick Herbert on 03-26-2023 Nucleated RBC Auto Ql (Bld) 0.0 /100{WBC} 0-0.5 [facility] Phosphate [Mass/volume] in S isiah or PlasmaOrdered By: Dominick Herbert on 03-26-2023 Phosphate [Mass/Vol] 3.3 mg/dL 3.7-7.2 [facility] Phosphoruson 03-26-2023 Phosphate [Mass/Vol] 3.3 mg/dL Low 3.7-7.2 [facility] Comment on above: Performed By: #### B MP, CBC, PHOS, BNP, HS TROP, MG #### [facility] [address] [place] [address] [facility] Platelet mean volume Auto (B ld) [Entitic vol]Ordered By: Dominick Herbert on 03-26-2023 Platelet mean volume (Bld) [Entitic vol] 9.0 fL 6.6-10.1 [facility] Platelets Auto (Bld) [#/Vol] Ordered By: Dominick Herbert on 03-26-2023 Platelets (Bld) [#/Vol] 220 10*3/uL 150-450 [facility] Potassium [Moles/volume] in Serum or PlasmaOrdered By: Dominick Herbert on 03-26-2023 Potassium [Moles/Vol] 4.0 mmol/L 3.5-5.1 [facility] RBC Auto (Bld) [#/Vol]Ordere d By: Dominick Herebrt on 03-26-2023 RBC (Bld) [#/Vol] 4.94 10*6/uL 3.90-5.60 [facility] Serum or plasma anion gap de terminationOrdered By: Dominick Herbert on 03-26-2023 Anion gap [Moles/Vol] 8.6 mmol/L 6.0-15.0 [facility] Sodium [Moles/volume] in Ser um or PlasmaOrdered By: Dominick Herbert on 03-26-2023 Sodium [Moles/Vol] 139 mmol/L 136-[address] [facility] Troponin I High Sensitivityo n 03-26-2023 Troponin I High Sensitivity 7.6 pg/mL Normal 0.0-20.0 [facility] Comment on above: Result Comment: PERF ORMED BY: [address] [address] PATHOLOGIST ENROLLMENT NURSE STUART SIGALA M.D. Performed By: #### B MP, CBC, PHOS, BNP, HS TROP, MG #### [facility] [address] [place] [address] [facility] Troponin I.cardiac [Mass/vol ume] in Serum or Plasma by Detection limit <= 0.01 ng/Ordered By: Dominick Herbert on 03-26-2023 Troponin I.cardiac DL <= 0.01 ng/mL [Mass/Vol] 7.6 pg/mL 0.0-20.0 [facility] Urea nitrogen [Mass/volume] in Serum or PlasmaOrdered By: Dominick Herbert on 03-26-2023 Urea nitrogen [Mass/Vol] 17 mg/dL 7-25 [facility] WBC Auto (Bld) [#/Vol]Ordere d By: Dominick Herbert on 03-26-2023 WBC (Bld) [#/Vol] 9.9 10*3/uL 4.1-10.[address] [facility] XR chest 1V portableon 03-26 XR chest 1V portable [facility] [address] [place] [id number] XRay Report Signed Patient: Katelynn Burdick MR#: [id number] 1 : 1975 Acct:[id number] Age/Sex: 47 / M ADM Date: 03/26/23 [...] Alejandra Ivory M.D.03/26/2023 6:27 PM Dictation Location: [place] [address] Transcribed By: DONALD 03/26/231826 Dictated By: Alejandra Ivory MD 03/26/231825 Signed By: 03/26/23 1827 Normal [facility] CORONAVIRUS 2019 BY PCRon SARS-CoV-2 (COVID-19) RNA ROBBIE+probe Ql (Unsp spec) Detected Abnormal Not Detected [facility] Comment on above: Result Comment: [...] this test method. Fact sheet for providers: https://www.fda.gov/media/491162/download Fact sheet for patients: https://www.fda.gov/media/276019/download This test has received FDA Emergency Use Authorization [EUA] and has been verified by [facility] ([facility]). This test is only authorized for the duration of time that circumstances exist to justify the authorization of the emergency use of in vitro diagnostic tests for the detection of SARS-CoV-2 virus and/or diagnosis of COVID-19 infection under section 564(b)(1) of the Act, 21 U.S.C. 360bbb-3(b)(1), unless the authorization is terminated or revoked sooner. [facility] is certified under CLIA-88 as qualified to perform high complexity testing. Testing is performed in the [facility] laboratories located at [address] [place] [address]. Performed By: #### C OV19 #### [address] [place] [address] Covid 19 Resultson 2 SARS-CoV-2 (COVID-19) RNA [...] may also be contacted by the [facility] to see if any of your [...] or Naproxen (Aleve) can also be used. Esja-lhk-quxhstw cough and cold medicines can be used according to the instructions on the package. Some nqxh-pal-twsrmrv medicines also contain acetaminophen. 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 Avoid touching your eyes, nose, and mouth [...] 24 anum (more content not included)... Normal [facility] CORONAVIRUS 2019 BY SHAGGYon Lab Specimen Source Nasal, Nasopharyngeal Normal [facility] Comment on above: Performed By: #### C OV19 #### [facility] [address] [place] [address] Coronavirus 2019 RNA by PCR, Symptomaticon 03-18-2022 Coronavirus 2019 RNA by PCR, Symptomatic Detected Abnormal See Below [facility] Work Phone: Comment on above: SOURCE: Nasal, [...] this test method. Fact sheet for providers: https://www.fda.gov/media/917299/downloadFact sheet for patients: https://www.fda.gov/media/840746/downloadThis test has received FDA Emergency Use Authorization [EUA] and has been verified by [facility] ([facility]). This test is only authorized for the duration of time that circumstances exist to justify the authorization of the emergency use of in vitro diagnostic tests for the detection of SARS-CoV-2 virus and/or diagnosis of COVID-19 infection under section 564(b)(1) of the Act, 21 U.S.C. 360bbb-3(b)(1), unless the authorization is terminated or revoked sooner. [facility] is certified under CLIA-88 as qualified to perform high complexity testing. Testing is performed in the [facility] laboratories located at [address] [place] [address]. Office Visit (Urgent Care)on 03-18-2022 Follow-up visit [...] presents for COVID-19 testing. He works for [employer]. He resents with a 1 day history [...] 03/18/2022 11:33:51 AM Vitals Vital Signs Recorded: [id number] 11:31AM Szscwjmmxfk48.1 F, Temporal Heart Rate89 Hdcgwciswmj90 Respiration QualityNormal Dlmzyfkv786, Sitting Nmisyarox42, Sitting Blood Pressure Cuff SizeAdult Height6 ft 1 in Rhmaas337 lb BMI Fnccadklji41.78 kg/m2 BSA Calculated2.17 Tobacco Useb) No Falls Screening (Age 18+)a) No falls within the last year O2 Qkutrywlcn40, RA Pain Scale0 PHQ-9 #1. Little interest [...] Mar 18 2022 12:23PM EST (Author) Normal [facility] [employer] 03-18-2022 Fall risk assessment a) No falls within the last year [facility] Work Phone: Tobacco use status CPHS b) No [facility] Work Phone: Respiration Normal [facility] Work Phone: Respiration Adult [facility] Phone: Respiration 0-Not at all [facility] [employer] Work Phone: Vital Signs Date Time Vital Sign Value Performing Clinician Facility 05-01-2024 09:46-0400 Body height 182.9 cm Dominick Pickens [employer] Work Phone: [facility] [employer] 05-01-2024 09:46-0400 Body mass index (BMI) [Ratio] 27.53 kg/m2 Dominick Pickens [employer] Work Phone: [facility] [employer] 05-01-2024 09:46-0400 Body temperature 98.29 [degF] Dominick Pickens [employer] Work Phone: [facility] [employer] 05-01-2024 09:46-0400 Body weight 92.08 kg Dominick Petznick DO Work Phone: [facility] 05-01-2024 09:46-0400 Diastolic blood pressure 76 mm[Hg] Dominick Petznick DO Work Phone: [facility] 05-01-2024 09:46-0400 Heart rate 69 /min Dominick Petznick DO Work Phone: [facility] 05-01-2024 09:46-0400 SaO2% (BldA) [Mass fraction] 96 % Dominick Petznick DO Work Phone: [facility] 05-01-2024 09:46-0400 Systolic blood pressure 114 mm[Hg] Dominick Petznick DO Work Phone: [facility] 04-23-2024 12:06-0400 Body height 182.9 cm Dominick Petznick DO Work Phone: [facility] 04-23-2024 12:06-0400 Body mass index (BMI) [Ratio] 27.8 kg/m2 Dominick Petznick DO Work Phone: [facility] 04-23-2024 12:06-0400 Body temperature 98.2 [degF] Dominick Petznick DO Work Phone: [facility] 04-23-2024 12:06-0400 Body weight 92.99 kg Dominick Petznick DO Work Phone: [facility] 04-23-2024 12:06-0400 Diastolic blood pressure 76 mm[Hg] Dominick Petznick DO Work Phone: [facility] 04-23-2024 12:06-0400 Heart rate 88 /min Dominick Petznick DO Work Phone: [facility] 04-23-2024 12:06-0400 SaO2% (BldA) [Mass fraction] 97 % Dominick Petznick DO Work Phone: [facility] 04-23-2024 12:06-0400 Systolic blood pressure 122 mm[Hg] Dominick Petznick DO Work Phone: [facility] 12-08-2023 09:35-0400 Diastolic blood pressure 75 mm[Hg] DO Dominick Petznick Work Phone: 6(704)091-831855 [place] [address] 12-08-2023 09:35-0400 Heart rate 63 /min DO Dominick Petznick Work Phone: 1(415)677-227755 [place] [address] 12-08-2023 09:35-0400 Respiratory rate 16 /min DO Dominick Petznick Work Phone: 4(770)990-662212 [address] 12-08-2023 09:35-0400 SaO2% (BldA) [Mass fraction] 97 % DO Dominick Petznick Work Phone: 8(861)304-665412 [address] 12-08-2023 09:35-0400 Systolic blood pressure 110 mm[Hg] DO Dominick Petznick Work Phone: 5(223)029-023512 [address] 12-08-2023 07:55-0400 Body height 185.42 cm DO Dominick Petznick Work Phone: 9(336)918-472812 [address] 12-08-2023 07:55-0400 Body weight 83.91 kg DO Dominick Petznick Work Phone: 0(026)950-477812 [address] 03-26-2023 19:00-0400 Diastolic blood pressure 87 mm[Hg] DO Dominick Petznick Work Phone: 4(060)287-491655 [place] [address] 03-26-2023 19:00-0400 Heart rate 72 /min DO Dominick Petznick Work Phone: 5(448)056-740355 [place] [address] 03-26-2023 19:00-0400 Respiratory rate 18 /min DO Dominick Petznick Work Phone: 9(750)933-506455 [place] [address] 03-26-2023 19:00-0400 SaO2% (BldA) [Mass fraction] 94 % DO Dominick Petznick Work Phone: 3(644)092-440455 [place] [address] 03-26-2023 19:00-0400 Systolic blood pressure 121 mm[Hg] DO Dominick Petznick Work Phone: 4(275)916-865212 [address] 03-26-2023 17:35-0400 Body height 185.42 cm DO Dominick Petznick Work Phone: [facility] 03-26-2023 17:35-0400 Body temperature 98.2 [degF] DO Dominick Pickens Work Phone: [facility] 03-26-2023 17:35-0400 Body weight 92.15 kg DO Dominick Pickens Work Phone: [facility] 03-18-2022 11:31-0400 Body height 185.42 cm Dominick Grahamick Work Phone: [facility] Work Phone: 03-18-2022 11:31-0400 Body mass index (BMI) [Ratio] 26.78 kg/m2 Dominick Pickens Work Phone: [facility] Work Phone: 03-18-2022 11:31-0400 Body surface area Derived from formula 2.17 m2 Dominick Grahamick Work Phone: [facility] Work Phone: 03-18-2022 11:31-0400 Body temperature 98.1 [degF] Dominick Pickens Work Phone: [facility] Work Phone: 03-18-2022 11:31-0400 Body weight 92.08 kg Dominick Pickens Work Phone: [facility] Work Phone: 03-18-2022 11:31-0400 Diastolic blood pressure 69 mm[Hg] Dominick Grahamick Work Phone: [facility] Work Phone: 03-18-2022 11:31-0400 Heart rate 89 /min Dominick Grahamick Work Phone: [facility] Work Phone: 03-18-2022 11:31-0400 Respiratory rate 20 /min Dominick Pickens Work Phone: [facility] Work Phone: 03-18-2022 11:31-0400 SaO2% (BldA) [Mass fraction] 98 % Dominick Pickens Work Phone: [facility] Work Phone: 03-18-2022 11:31-0400 Systolic blood pressure 126 mm[Hg] Dominick Pickens Work Phone: [facility] Work Phone: 03-18-2022 11:31-0400 0 1 Dominick Pickens Work Phone: [facility] Work Phone: Comment on above: [employer] Encounters Encounter Date Encounter Type Care Provider Facility Start: 06-19-2024 End: 06-19-2024 Office outpatient new 30 minutes Nick Collier PA Work Phone: [facility] Comment on above: Epidermal inclusion cyst (Primary Dx); Common wart; Pain, generalized Start: 06-19-2024 End: 06-19-2024 ambulatory NICK COLLIER Not Available Start: 05-01-2024 End: 05-01-2024 Telephone encounter Dominick Pickens DO Work Phone: [phone] Start: 05-01-2024 End: 05-01-2024 Office outpatient visit 15 minutes Dominick Damon Petznick DO Work Phone: [facility] Comment on above: Cervical radiculopat hy (Primary Dx); Cervical arthritis; Tobacco abuse Start: 05-01-2024 End: 05-01-2024 ambulatory DOMINICK PICKENS Not Available Start: 04-23-2024 End: 04-23-2024 Office outpatient visit 25 minutes Dominick C Petznick DO Work Phone: [facility] Comment on above: Cervical arthritis ( Primary Dx); Cervical radiculopathy Start: 04-23-2024 End: 04-23-2024 ambulatory DOMINICK PICKENS Not Available Start: 12-08-2023 End: 12-08-2023 ambulatory Dominick Petznick Facility:[facility] Start: 12-08-2023 Non-patient / Non-visit DO Jens loya Petznick Work Phone: [facility] G[facility] Work Phone: Start: 12-08-2023 End: 12-08-2023 Admission to same day surgery center DO Dominick Petznick Work Phone: [facility] Work Phone: Start: 12-08-2023 End: 12-08-2023 ambulatory DO Dominick Petznick Work Phone: [facility] Work Phone: Start: 04-30-2023 End: 04-30-2023 ambulatory Dominick Petznick Facility:[facility] Start: 04-30-2023 End: 04-30-2023 ambulatory DO Dominick Petznick Work Phone: [facility] Work Phone: Start: 04-30-2023 End: 04-30-2023 Patient encounter procedure DO Dominick Petznick Work Phone: [facility] [place] Work Phone: Start: 04-23-2023 End: 04-23-2023 ambulatory DO Dominick Petznick Work Phone: [facility] Work Phone: Start: 04-23-2023 End: 04-23-2023 Patient encounter procedure DO Dominick Petznick Work Phone: [facility] [place] Work Phone: Start: 04-16-2023 End: 04-16-2023 ambulatory Dominick Petznick Facility:[facility] Start: 04-16-2023 End: 09-02-2023 Patient encounter procedure DO Dominick Petznick Work Phone: [facility] [place] Work Phone: Start: 03-26-2023 End: 03-26-2023 Emergency department patient visit Dominick Pickens Facility:[facility] Start: 03-26-2023 End: 03-26-2023 Emergency department patient visit DO Dominick Pickens Work Phone: [facility] Work Phone: Start: 03-19-2022 Chart Update Dominick aldana Work Phone: [facility] Work Phone: Start: 03-18-2022 Adv care pln tlkd & alt dcsn maker docd Dominick Pickens Work Phone: [facility] Work Phone: Start: 03-18-[address] Ladi Griffinhn Facility:[id number] Procedures Date Procedure Procedure Detail Performing Clinician Start: 06-19-2024 CRYOTHERAPY SKIN LESION Nick BILL Work Phone: Start: 12-08-2023 Screening colonoscopy D O Dominick Pickens Work Phone: Start: 12-08-2023 Colonoscopy Dominikc Benavides etelvinakatya DO Work Phone: Start: 03-26-2023 Plain chest X-ray DO Ma ttoni Pickens Work Phone: Plan of Treatment Date Care Activity Detail Author Start: 12-07-2033 Screening for malign ant neoplasm of colon [facility] Start: 04-15-2024 Influenza vaccination Influenza Vacc ine (#1) [facility] Start: 12-08-2023 [facility] Start: 1975 Screening for malign ant neoplasm of colon [facility] Patient Education [facility] Work Phone: Patient referral [facility] Work Phone: Immunizations Immunization Date Immunization Notes Care Provider Supriya gipson 12-06-2020 Moderna SARS-CoV-2 Vaccination Dominick Pickens DO Work Phone: [facility] 11-08-2020 Moderna SARS-CoV-2 Vaccination Dominick Pickens DO Work Phone: [facility] Payers Date Payer Category Payer Self-pay 2023 Unknown [id number] 2022 Private Health Insurance [employer] [id number] 2022 Unknown 2022 Unknown [id number] 1975 Unknown [id number] 1975 Unknown [id number] 1259 1975 Unknown [id number] 1259 1975 Unknown [id number] 1259 Unknown [id number] 531 Unknown [id number] 531 Unknown [id number] 531 Unknown [id number] 531 Social History Date Type Detail Facility Start: 03-26-2023 End: 12-08-2023 Tobacco smoking status NHIS Smoker (finding) [facility] Start: 1975 Sex Assigned At Male [facility] Start: 04-23-2024 Tobacco smoking stat us NHIS Smokes tobacco daily [facility] History of tobacco use Cigarette Smoker [facility] Start: 04-23-2024 Tobacco use and exposure Smokeless tobacco non-user [facility] Start: 04-23-2024 End: 06-19-2024 Alcoholic beverage intake Ex-drinker (finding) [facility] Start: 04-23-2024 End: 05-01-2024 History of Social function [facility] Start: 04-23-2024 End: 05-01-2024 Tobacco use panel [facility] Start: 04-23-2024 Alcohol Comment sober since 2011 [facility] Start: 1975 Sex assigned at Not on file [facility] Start: 10-27-2022 Gender identity Identifies as male gender (finding) [facility] Goals Date Patient Goal Desired Activity /State Clinical Notes 12-08-2023 to 06-19-2024 FLY Miramontes - 06/19/2024 9:20 AM ESTTelephone Encounter - Dominick Pickens, DO - 05/01/2024 8:55 PM EDTTelephone Encounter - Dominick Pickens, DO - 05/01/2024 8:55 PM EDT Note Date & Type Note Facility 06-19-2024 History of Presen t illness Narrative Images from the original note were not included. Lesions: Location: left ear Duration: 8-9 days Quality: denies pain, denies itch Associated symptoms: draining, non-healing, red Treatments: none Lesions: Location: right 5th digit Duration: 3 years Quality: painful Associated symptoms: non-healing Treatments: none New patient All pertinent medical history, medications, and allergies were reviewed. General Exam: alert, oriented to person, place, and time, normal affect, well appearing Unaccompanied A focused exam completed based on patient reported problems, see below: 1. Epidermal inclusion cyst Left Postauricular Area 2.0 x 1.5 cm erythematous, subcutaneous nodule Patient was counseled regarding cysts. Although benign, cysts often slowly enlarge and can occasionally become inflamed. Discussed the only way to definitively diagnose the lesion would be to have it removed and tested. Discussed treatment options including observation vs. excision. Patient elected for excision. Reviewed procedure and what to expect. Patient informed that the office will contact them to schedule a 30 minute excision once an estimate of their co-pay is determined. He is aware that we are booking out until September for cyst removal. Paperwork submitted today for excision. 2. Common wart Right 5th Proximal Dorsal Toe Erythematous verrucous papule(s). Patient was counseled regarding warts. Treatment options were discussed including cryotherapy, laurie antigen injections, and topical Cantharidin. It was explained that it typically requires multiple treatments before the wart(s) completely resolve. Patient will continue to treat with Fluowart at home as he cannot return to clinic every 3-4 weeks. Budflaviar handout given. Patient elected for cryotherapy today, see procedure note. Diagnosis: Verruca Indication: Inflamed Consent: Verbal consent was obtained and risks were discussed, including, but not limited to risks of scarring, darker or card maker pigmentary changes, recurrence, incomplete removal and infection. Method: Liquid nitrogen was used to treat the lesion(s) with two 5-10 second freeze-thaw cycles Number of lesions treated: 1 Post-procedure instructions: Instructions were given orally and in writing. The office will be contacted if the lesion fails to resolve despite treatment, or if a side effect develops such as abnormal crusting, scabbing, redness or tenderness. Start Fluowart, prescription was sent faxed to [facility]. Cryotherapy, skin lesion - Right 5th Proximal Dorsal Toe 3. Pain, generalized Next Visit: Pending Excision Schedule documented in this encounter [facility] 05-01-2024 Telephone encounter Note Send clearance note [facility] 05-01-2024 Miscellaneous Notes Send clearance note documented in this encounter [facility] 05-01-2024 History of Presen t illness Narrative Images from the original note were not included. Katelynn Burdick is a 48 y.o. male presents with chief complaint of Chief Complaint Patient presents with Pre-op Exam History of Present Illness The patient is here to discuss potential surgery for her neck. She has been advised that without surgery, she may have to live with a downward gaze due to the forward position of her head. The recovery period post-surgery is estimated to be around 6 weeks. She experiences numbness in her arm, and an MRI revealed three discs protruding beyond their normal boundaries. She believes the surgery will involve levels 3 through 6 of her spine, but was informed that issues exist from levels 2 through 7. She underwent blood work, an EKG, and a chest x-ray at [facility] on the same day as her appointment. Despite being a smoker, she does not experience shortness of breath during physical activity such as climbing stairs. However, she does get winded and needs to rest for a few minutes before resuming activity. She does not engage in running. She reports no heart palpitations or skipped beats while at rest. Occasionally, she experiences brief dizziness when standing up quickly from a seated position. SOCIAL HISTORY She is a smoker. Here for presurgical clearance for anterior cervical discectomy and fusion on 05.14.[address] Efrem Reyes in [place]. Going in on 05.11.24 for presurgical testing. SUBJECTIVE: CURRENT MEDICATIONS: ALLERGIES/DISCONTINUE MEDICATIONS Current Outpatient Medications: cetirizine (ZyrTEC) 10 MG tablet, Take by mouth., Disp: , Rfl: gabapentin (Neurontin) 100 MG capsule, Take 200 mg by mouth in the morning and 200 mg before bedtime., Disp: , Rfl: methocarbamol (Robaxin) 500 MG tablet, Take 500 mg by mouth 2 (two) times a day as needed, Disp: , Rfl: naproxen sodium (Aleve) 220 MG tablet, 1 (one) time each day at the same time., Disp: , Rfl: No Known Allergies Medications Discontinued During This Encounter Medication Reason varenicline (Chantix) 1 MG tablet Therapy completed PAST MEDICAL HISTORY: SURGICAL/SOCIAL/FAMILY HISTORY DEPRESSION SCREEN: Past Medical History: Diagnosis Date Alcohol abuse 04/12/2023 Past Surgical History: Procedure Laterality Date BIOPSY SKIN / SQ / MUCOUS MEMBRANE oral biopsy VASECTOMY 2006 WISDOM TOOTH EXTRACTION 1995 Depression: Not at risk (05/01/2024) PHQ-2 PHQ-2 Score: 0 Social History Tobacco Use Smoking status: Every Day Current packs/day: 1.50 Types: Cigarettes Smokeless tobacco: Never Vaping Use Vaping status: Former Substance Use Topics Alcohol use: Not Currently Comment: sober since 2011 Family History Problem Relation Name Age of Onset Arthritis Mother Stroke Mother Diabetes Father Stroke Father Coronary artery disease Father Vision loss Father Thyroid disease Sister Diabetes Sister REVIEW OF SYMPTOMS: Review of Systems Constitutional: Negative for fatigue. HENT: Negative for rhinorrhea. Respiratory: Negative for cough and shortness of breath. Cardiovascular: Negative for chest pain. Gastrointestinal: Negative for abdominal distention. Skin: Negative for rash. Neurological: Negative for dizziness. All other systems reviewed and are negative. OBJECTIVE: 05/01/2024 9:46 AM 04/23/2024 12:06 PM 05/31/2023 1:03 PM Vitals BMI 27.53 kg/m2 27.8 kg/m2 27.94 kg/m2 BSA (m2) 2.16 m2 2.17 m2 2.18 m2 Systolic 114 122 120 Diastolic 76 76 76 Heart Rate 69 88 88 SpO2 96 % 97 % 96 % Temp 98.3 F 98.2 F 98.2 F Height (in) 6' 6' 6' Weight (lb) 203 205 206 Visit Report Report Report Report GENERAL EXAM: Physical Exam Vitals reviewed. Constitutional: General: He is not in acute distress. Appearance: Normal appearance. He is not ill-appearing. HENT: Head: Normocephalic and atraumatic. Nose: Nose normal. Mouth/Throat: Mouth: Mucous membranes are moist. Eyes: General: No scleral icterus. Extraocular Movements: Extraocular movements intact. Cardiovascular: Rate and Rhythm: Normal rate and regular rhythm. Heart sounds: No murmur heard. Pulmonary: Effort: Pulmonary effort is normal. Breath sounds: Normal breath sounds. Musculoskeletal: General: Normal range of motion. Cervical back: Normal range of motion and neck supple. Skin: General: Skin is warm and dry. Findings: No rash. Neurological: General: No focal deficit present. Mental Status: He is alert and oriented to person, place, and time. Mental status is at baseline. Psychiatric: Mood and Affect: Mood normal. Behavior: Behavior normal. Thought Content: Thought content normal. Judgment: Judgment normal. ASSESSMENT AND PLAN: Assessment & Plan 1.. Cervical Disc Herniation. Surgery has been recommended to correct this issue. The recovery time is estimated to be around 6 weeks. He is advised to follow up with Dr. Solo for further surgical planning and post-operative care. The patient's chest x-ray revealed interstitial markings, indicative of scar tissue development in the lungs. This finding does not contraindicate the planned surgery. She has completed blood work, EKG, and chest x-ray at [facility] on 04/26/2024. She is advised to report any symptoms of wheezing or shortness of breath. 2. Smoking. He is advised to quit smoking to improve lung health and overall recovery. The benefits of quitting smoking, including the potential for lung tissue healing, have been discussed. He is informed that it may take at least 6 months for his lung cells to start producing less mucus and for breathing to improve. DOMINICK PICKENS D.O. This note was entered using [employer] copilot. Grammatical and dictation errors maybe present in translation *I have reviewed and reconciled the history and medication list with the patient today* documented in this encounter [facility] 04-23-2024 History of Presen t illness Narrative Images from the original note were not included. Katelynn Burdick is a 48 y.o. male presents with chief complaint of Chief Complaint Patient presents with Follow-up History of Present Illness The patient is here to review the MRI of his cervical spine. He reports a slight improvement in his condition but still experiences limitations in his activities. On 03/23/2024, he woke up with severe pain, which led him to visit the emergency room on two consecutive days. He was then referred to [facility] where he received some relief. His initial symptoms included neck discomfort extending to his jawline, which has since subsided. However, he continues to experience a tingling sensation in his neck and constant numbness in his fingers. He also reports tooth pain. The MRI results indicated arthritis build-up and mild narrowing, suggesting possible nerve entrapment. He has a history of neck cracking. He was prescribed cyclobenzaprine and etodolac but was later advised to discontinue etodolac. For the past three weeks, he has been taking methocarbamol and gabapentin, although he ran out of gabapentin last . He increased his gabapentin dosage from 100 mg three times daily to 200 mg twice daily, totaling 400 mg per day. He also takes 500 mg of methocarbamol twice daily. Upon waking, he experiences pain in his right arm, shoulder, and neck that lasts for about an hour. He avoids using his right hand and arm due to the pain and struggles with driving and drying his back after showering. He experiences a shock-like sensation when looking up. He has not received any injections in his neck. He has started taking CBD gummies containing 0.3 percent THC, which aid his sleep. He expresses concern about potential addiction to substances as he identifies as an alcoholic. He was given Xanax during his second MRI, which helped him remain comfortable during the procedure. He has an upcoming appointment with a surgeon. SUBJECTIVE: CURRENT MEDICATIONS: ALLERGIES/DISCONTINUE MEDICATIONS Current Outpatient Medications: cetirizine (ZyrTEC) 10 MG tablet, Take by mouth., Disp: , Rfl: methocarbamol (Robaxin) 500 MG tablet, 1 orally Every 8 hours prn pain for 30 days, Disp: , Rfl: naproxen sodium (Aleve) 220 MG tablet, 1 (one) time each day at the same time., Disp: , Rfl: gabapentin (Neurontin) 100 MG capsule, Take 100 mg by mouth in the morning and 100 mg in the evening and 100 mg before bedtime., Disp: , Rfl: varenicline (Chantix) 1 MG tablet, Take 1 tablet (1 mg) by mouth in the morning and 1 tablet (1 mg) before bedtime. Take with full glass of water.. (Patient not taking: Reported on 05/31/2023), Disp: 60 tablet, Rfl: 2 No Known Allergies Medications Discontinued During This Encounter Medication Reason ALPRAZolam (Xanax) 0.25 MG tablet Therapy completed ascorbic acid (Vitamin C) 500 MG tablet Therapy completed Calcium Ascorbate 500 MG tablet Therapy completed calcium carbonate (Os-Jose) 1250 (500 Ca) MG tablet Therapy completed cholecalciferol (Vitamin D-3) 25 MCG (1000 UT) capsule Therapy completed Clenpiq 10-3.5-12 MG-GM -GM/175ML solution Therapy completed Cyanocobalamin (Vitamin B12) 1000 MCG tablet controlled-release Therapy completed cyclobenzaprine (Flexeril) 10 MG tablet Therapy completed etodolac (Lodine) 400 MG tablet Therapy completed Glucosamine 500 MG capsule Therapy completed Melatonin 10 MG capsule Therapy completed meloxicam (Mobic) 15 MG tablet Therapy completed Multiple Vitamin (MULTIVITAMINS PO) Therapy completed predniSONE (Deltasone) 20 MG tablet Therapy completed tiZANidine (Zanaflex) 2 MG tablet Therapy completed varenicline (Chantix) 1 MG tablet Therapy completed Varenicline Tartrate, Starter, 0.5 MG X 11 & 1 MG X 42 tablet therapy pack Therapy completed PAST MEDICAL HISTORY: SURGICAL/SOCIAL/FAMILY HISTORY DEPRESSION SCREEN: Past Medical History: Diagnosis Date Alcohol abuse 04/12/2023 Past Surgical History: Procedure Laterality Date BIOPSY SKIN / SQ / MUCOUS MEMBRANE oral biopsy VASECTOMY 2006 WISDOM TOOTH EXTRACTION 1995 Depression: Not at risk (04/23/2024) PHQ-2 PHQ-2 Score: 0 Social History Tobacco Use Smoking status: Every Day Current packs/day: 1.50 Types: Cigarettes Smokeless tobacco: Never Vaping Use Vaping status: Former Substance Use Topics Alcohol use: Not Currently Comment: sober since 2011 Family History Problem Relation Name Age of Onset Arthritis Mother Stroke Mother Diabetes Father Stroke Father Coronary artery disease Father Vision loss Father Thyroid disease Sister Diabetes Sister REVIEW OF SYMPTOMS: Review of Systems Constitutional: Negative for fatigue and fever. Musculoskeletal: Positive for arthralgias. Skin: Negative for rash. Neurological: Positive for weakness and numbness. Psychiatric/Behavioral: Negative. All other systems reviewed and are negative. Hematological: Does not bruise/bleed easily. OBJECTIVE: 04/23/2024 12:06 PM 05/31/2023 1:03 PM 04/12/2023 2:44 PM Vitals BMI 27.8 kg/m2 27.94 kg/m2 27.53 kg/m2 BSA (m2) 2.17 m2 2.18 m2 2.16 m2 Systolic 122 120 126 Diastolic 76 76 78 Heart Rate 88 88 98 SpO2 97 % 96 % 99 % Temp 98.2 F 98.2 F 98.3 F Height (in) 6' 6' 6' Weight (lb) 205 206 203 Visit Report Report Report Report GENERAL EXAM: Physical Exam Vitals and nursing note reviewed. Constitutional: General: He is not in acute distress. Appearance: Normal appearance. He is not ill-appearing. HENT: Head: Normocephalic and atraumatic. Nose: Nose normal. Eyes: General: No scleral icterus. Right eye: No discharge. Left eye: No discharge. Extraocular Movements: Extraocular movements intact. Musculoskeletal: Cervical back: Neck supple. Skin: General: Skin is warm and dry. Neurological: General: No focal deficit present. Mental Status: He is alert and oriented to person, place, and time. Mental status is at baseline. Psychiatric: Mood and Affect: Mood normal. Behavior: Behavior normal. Thought Content: Thought content normal. Judgment: Judgment normal. Physical Exam Examination of the cervical spine reveals a positive Spurling's test on the right. Range of motion testing reveals pain, especially with extension. Muscle strength testing of the upper extremity reveals decreased strength in the right tricep compared to the left. Mildly decreased right of way manager strength is noted on the right compared to the left. Neurovascular integrity is intact bilaterally. Deep tendon reflexes are 2+ in biceps and triceps bilaterally. ASSESSMENT AND PLAN: 1. Cervical arthritis The patient reports severe pain in the neck radiating to the right arm, with associated weakness and tingling. MRI results indicate arthritis buildup and narrowing in the cervical spine, likely causing nerve compression. Physical examination reveals decreased strength in the right tricep and mildly decreased right of way manager strength on the right, with positive Spurling's test on the right and pain on extension. He is currently taking methocarbamol 500 mg twice daily and gabapentin 200 mg twice daily, but ran out of gabapentin and will order picker a new prescription today. The patient was advised to consider an epidural steroid injection to reduce inflammation and potentially avoid surgery. If the epidural injection does not alleviate the weakness, surgical intervention may be necessary. The patient will discuss these options with the surgeon on 2. Cervical radiculopathy DOMINICK PICKENS D.O. This note was entered using [employer]. Grammatical and dictation errors maybe present in translation *I have reviewed and reconciled the history and medication list with the patient today* documented in this encounter [facility] 12-08-2023 Procedure note [facility] Evaluation note No assessment inform ation available [facility] Work Phone: Evaluation note Diagnosis Epidermal inclusion cyst- Primary Sebaceous cyst Common wart Other specified viral warts Pain, generalized Generalized pain documented in this encounter [facility] HealthcareEvaluation note* Diagnosis Cervical radiculopathy- Primary Brachial neuritis or radiculitis nos Cervical arthritis Cervical spondylosis without myelopathy Tobacco abuse Tobacco use disorder documented in this encounter [facility]* Diagnosis Cervical arthritis- Primary Cervical spondylosis without myelopathy Cervical radiculopathy Brachial neuritis or radiculitis nos documented in this encounter [facility] HealthcareHistory and physical note Author Martin Jacobo [facility] December 08, 2023 8:46am Note Date/Time December 08, 2023 8:4 6am [facility] [address] [place] [address] Gastroenterology H&P Signed Patient: Katelynn Burdick MR#: [id number] : 1975 Acct:[id number] Age/Sex: 48 / M Adm Date: 4 Loc: Room: Type: [facility] Attending Dr: Martin Jacobo MD Copies to: MD Dominick Gabriel DO~ Date of Service: 12/08/2023 HISTORY & [...] signed by Martin Jacobo MD> 12/08/23 0846 [facility] Work Phone: History of Present illness Narrative* Patient is a 46-year-old male who presents for COVID-19 testing. He works for [employer]. He resents witha 1 day history of headaches, sore throat and nausea. His daughter was recently diagnosed with COVID-19. He denies cough and shortness of breath. No fevers or chills are noted. * Constitutional: No fevers or chills. * Eyes: no purulent discharge from the eyes and no eye pain. * ENT: no nasal congestion, + sore throat and no earache. * Neck: no mass(es) and no swelling. * Cardiovascular: no chest pain and no palpitations. * Respiratory: no cough, no shortness of breath, no orthopnea and no wheezing. * Gastrointestinal: no abdominal pain, no vomiting, no diarrhea, no decrease in appetite and + nausea. * Musculoskeletal: no arthralgias and myalgias. * Neurological: + headache. [facility] Work Phone: Chief Complaint [facility]/COVID Summary Purpose Family History Relationship Condition Age at Onset Recorded Date/T nydia father Diabetes mellitus Unknown Heart disease Unknown grandparent Malignant neoplasm of pancreas Unknown Advance Directives Advance Directive Response Recorded Date/ Time Advance [...] section and content) DATE CREATED AUTHOR 03/19/2022 [employer] DATE CREATED AUTHOR AUTHOR'S ORGANIZ ATION 03/20/2022 [facility] DATE CREATED AUTHOR AUTHOR'S ORGANIZ ATION 01/29/2023 [facility] DATE CREATED AUTHOR AUTHOR'S ORGANIZ ATION 12/16/2023 [facility] DATE CREATED AUTHOR AUTHOR'S ORGANIZ ATION 06/20/2024 [facility] [employer] Care Teams (unrecognized sec tion and content) Team Status: Active Member Role Status Dates Dominick Pickens DO Primary Care Provider Active Team Status: Inactive Member Role Status Dates Dominick Pickens DO Primary Care Provider Active Dominick Herbert DO Emergency Provider Active Team Status: Inactive Member Role Status Dates Dominick Pickens DO Primary Care Provider, Attending Provider Active Team Status: Inactive Member Role Status Dates Dominick Pickens DO Primary Care Provider Active Start: December 08, 2023 End: December 08, 2023 Martin Jacobo MD Attending Provider Active S tart: December 08, 2023 End: December 08, 2023 Team Status: Active Member Role Status Dates Dominick Pickens DO Primary Care Provider Active Start: December 08, 2023 Martin Jacobo MD Attending Provider, Other Provider Active Start: December 08, 2023 Negotiations Director Relationship Specialty Start Date End Date Dominick Pickens DO [address] [place] [address] PCP - General Family Medicine 12/21/22 Dominick Pickens DO [address] [place] [address] PCP - Medical [facility] 08/15/08 08/14/99 Negotiations Director Relationship Specialty Start Date End Date Dominick Pickens, DO [address] [place] [address] PCP - General [facility] 12/21/22 Dominick Pickens, DO [address] [place] [address] [facility] 08/15/08 08/14/99 Negotiations Director Relationship Specialty Start Date End Date Dominick Pickens, DO [address] [place] [address] PCP - [facility] 12/21/22 Dominick Pickens, DO [address] [place] [address] [facility] 08/15/08 08/14/99 Negotiations Director Relationship Specialty Start Date End Date Dominick Pickens, DO [address] [place] [address] PCP - [facility] 12/21/22 Dominick Pickens, DO [address] [place] [address] [facility] 08/15/08 08/14/99 Goals (unrecognized section and content) Goals may be documented in a n alternate sectionGoals may be documented in an alternate sectionGoals may be documented in an alternate section Reason for Visit (unrecogniz ed section and content) Reason Comments Suspicious Skin Lesion Reason Comments Pre-op Exam Reason Comments Follow-up FOR RECORDS PERTAINING TO PATIENTS WHO ARE [...] BE BASED ON THE PRIMARY CLINICAL RECORDS. [facility] [employer] [facility]. provides no warranty or guarantee of the accuracy or completeness of information in this document.
== END 2024-08-03 09:50 | disposition home or self-care (01) ==
LOC: EC 09:49
PROVIDERS: PCP Family Medicine; Visit Provider Orthopaedic Surgery Orthopaedic Surgery of the Spine
DX: M54.2 Cervicalgia (principal)
CPT/HCPCS: 72040